=== PATIENT | female | born 1930 | race Hispanic/Latino ===

== ENCOUNTER 2018-04-15 17:59 | Inpatient (IN) | payer MEDICARE ==
[~2018-04-15] VITALS: Ht 157.5 cm; Wt 58.2 kg
[2018-04-15] MEDS ORDERED: DILTIAZEM HCL VIAL 5 ML ONE (18:21)
--- NOTE | 2018-04-15 18:43 | Diagnostic Imaging Report ---
EXAMINATION: CHEST SINGLE (PORTABLE) INDICATION: ^SOB ^[id number] ^1815 ^Y COMPARISON: None FINDINGS: AP view TUBES and LINES: None. LUNGS: Low lung volumes. Diffuse bilateral airspace opacities. PLEURA: No visible pneumothorax. Small bilateral pleural effusions. HEART AND MEDIASTINUM: The cardiomediastinal silhouette is enlarged. BONES AND SOFT TISSUES: No acute osseous lesion. Soft tissues are unremarkable. UPPER ABDOMEN: No free air under the diaphragm. IMPRESSION: Bilateral airspace opacities, representing moderate pulmonary edema. Underlying infiltrate cannot be excluded. Small bilateral pleural effusions. Signed by: Dr. Eric Ortiz MD on 04/15/2018 6:39 PM
[2018-04-15 18:44] LABS: BASOPHILS # (AUTO) 0.1 (0.0-0.1); BASOPHILS % 0.6 % (0.0-1.0); EOSINOPHILS # (AUTO) 0.2 (0.0-0.4); EOSINOPHILS % 2.6 % (0.0-6.0); HEMOGLOBIN 12.5 g/dL (12.0-16.0); LYMPHOCYTES # (AUTO) 3.1 (1.0-3.2); LYMPHOCYTES % 35.3 % (18.0-39.1); MEAN CORPUSCULAR HEMOGLOBIN 29.4 pg (28-32); MEAN CORPUSCULAR HGB CONC 32.9 g/dL (31-35); MEAN CORPUSCULAR VOLUME 89.4 fL (81-99); MONOCYTES # (AUTO) 0.5 (0.2-0.8); MONOCYTES % 5.4 % (4.4-11.3); NEUTROPHILS # (AUTO) 4.9 (2.1-6.9); NEUTROPHILS % 55.8 % (38.7-80.0); PLATELET COUNT 264 x10e3/uL (140-360); RED BLOOD COUNT 4.25 x10e6/uL (3.6-5.1); RED CELL DISTRIBUTION WIDTH 14.9 % (11.7-14.4)
[2018-04-15 18:49] LABS: INR 1.27
[2018-04-15 18:50] LABS: PARTIAL THROMBOPLASTIN TIME 38.8 seconds (23.8-35.5)
[2018-04-15 18:56] LABS: ALANINE AMINOTRANSFERASE 34 IU/L (0-55); ALBUMIN/GLOBULIN RATIO 0.9 (0.8-2.0); ALKALINE PHOSPHATASE 77 IU/L (40-150); ANION GAP 18.2 mmol/L (8-16); BLOOD UREA NITROGEN 22 mg/dL (7-26); BUN/CREATININE RATIO 18 (6-25); CALCIUM 9.9 mg/dL (8.4-10.2); CARBON DIOXIDE 22 mmol/L (22-29); CHLORIDE 100 mmol/L (98-107); CREATINE KINASE 40 IU/L (29-168); CREATININE, SERUM 1.22 mg/dL (0.57-1.11); EST GLOMERULAR FILTRATION RATE 42 ML/MIN (60-); GLUCOSE 147 mg/dL (74-118); POTASSIUM 4.2 mmol/L (3.5-5.1); SODIUM 136 mmol/L (136-145)
[2018-04-15] MEDS ORDERED: DILTIAZEM HCL 5 MG/ML 5 ML VIAL IV ONE (19:15)
[2018-04-15] MEDS ORDERED: FUROSEMIDE INJ 10 MG/ML 4 ML VIAL IV ONE (19:30)
[2018-04-15] MEDS ORDERED: DIGOXIN INJ 0.25 MG/ML 2 ML AMP IV ONE (20:15)
[2018-04-15 21:12] LABS: CLARITY,URINE CLEAR (CLEAR); COLOR,URINE YELLOW (YELLOW); KETONES,URINE TRACE (NEGATIVE); LEUKOCYTE ESTERASE ,URINE NEGATIVE (NEGATIVE); NITRITE,URINE NEGATIVE (NEGATIVE); URINE UROBILINOGEN 0.2 mg/dL (0.2 - 1)
[2018-04-15 21:13] LABS: BILIRUBIN,URINE NEGATIVE (NEGATIVE); PROTEIN,URINE DIPSTICK TRACE (NEGATIVE)
[2018-04-15 21:23] LABS: RBC,URINE 0-5 /HPF (0-5); WBC,URINE (MAN) 0-5 /HPF (0-5)
[2018-04-15 21:24] LABS: AMORPHOUS SEDIMENT,URINE FEW (FEW); BACTERIA,URINE FEW /HPF; EPITHELIAL CELLS,URINE FEW /LPF
[2018-04-15] MEDS ORDERED: AMLODIPINE BESYL5 MG PO (22:13)
[2018-04-15] MEDS ORDERED: RIVASTIGMINE3 MG PO (22:13)
[2018-04-15] MEDS ORDERED: TRESIBA SQ (22:13)
[2018-04-15] MEDS ORDERED: FUROSEMIDE20 MG PO (22:13)
[2018-04-15] MEDS ORDERED: CARVEDILOL12.5 MG PO (22:13)
[2018-04-15] MEDS ORDERED: METFORMIN HCL500 MG PO (22:13)
[2018-04-15] MEDS ORDERED: AMIODARONE HCL200 MG PO (22:13)
[2018-04-15] MEDS ORDERED: METOPROLOL TART50 MG PO (22:13)
[2018-04-15] MEDS ORDERED: IPRATROPIU0.2 MG/1 M INH (22:13)
[2018-04-15] MEDS ORDERED: FERROUS GLUCON324 M1 PO (22:13)
[2018-04-15] MEDS ORDERED: GABAPENTIN100 MG PO (22:13)
[2018-04-15] MEDS ORDERED: AMIODARONE HCL 150MG 100 ML IV SCH (22:15)
[2018-04-15] MEDS ORDERED: AMIODARONE 900MG 500 ML IV SCH (22:15)
[2018-04-15] MEDS ORDERED: AMIODARONE HCL 100 ML IV ONE (22:35)
[2018-04-15] MEDS ORDERED: DEXTROSE 50% SYRINGE 50 ML IV PRN (23:00)
--- OUTSIDE RECORDS SUMMARY | 2018-04-15 23:01 | XMS REPORT ---
Author [facility] Address Unknown Phone Unavailable Care Team Providers Care Wrapping Machine Helper Name Role Phone Parrish MANZO Unavailable Unavailable Payers Payer Name Policy Type Policy Number Effective Date Expiration Date Problems This patient has no known problems. Allergies, Adverse Reactions, Alerts Allergy Name Allergy Type Status Severity Reaction(s) Onset Date Inactive Date Treating Clinician Comments No Known Allergies DA Active U 2018-02-13 00:00:00 Medications This patient has no known medications. Results Test Description Test Time Test Comments Text Results Atomic Results Result Comments CHEST SINGLE (PORTABLE) 2018-04-15 18:38:00 [place] [id number] Patient Name: EMILY SKY MR #: [id number] : 1930 Age/Sex: 88/F Req #: [id number] Adm Physician: Ordered by: PATO MANZO MD Report #: [id number] Location: ER Room/Bed: Procedure: [id number] DX/CHEST SINGLE (PORTABLE) Exam Date: 04/15/18 Exam Time: 1814 REPORT STATUS: Signed EXAMINATION: CHEST SINGLE (PORTABLE) INDICA TION: SOB [id number] Y COMPARISON: None FINDINGS: AP view TUBES and LINES: None. LUNGS: Low lung volumes. Diffuse bilateral airspace opacities. PLEURA: No visible pneumothorax. Small bilateral pleural effusions. HEART AND MEDIASTINUM: The cardiomediastinal silhouette is enlarged. BONES AND SOFT TISSUES: No acute osseous lesion. Soft tissues are unremarkable. UPPER ABDOMEN: No free air under the diaphragm. IMPRESSION: Bilateral airspace opacities, representing moderate pulmonary edema. Underlying infiltrate cannot be excluded. Small bilateral pleural effusions. Signed by: Dr. Eric Cross MD on 04/15/2018 6:39 PM Dictated By: ERIC CROSS MD 38 Transcribed By: CLAUS on 04/15/181838 COPY TO: PATO MANZO MD
[2018-04-15] MEDS ORDERED: IPRATROPIUM BROMIDE 0.02% 2.5 ML NEB INH PRN (23:15)
[2018-04-15 23:58] VITALS: BP 114/90
[2018-04-16] VITALS (55 sets, daily range): BP systolic 100–134; BP diastolic 26–99
[2018-04-16 01:35] LABS: ABG HCO3 26 mmol/L (23-28); ABG PCO2 29 mmHg (41-51); ABG PH 7.42 (7.31-7.41); ABG PO2 113 mmHg (80-105)
[2018-04-16] MEDS ORDERED: OMEPRAZOLE40 MG PO (02:10)
[2018-04-16] MEDS ORDERED: WARFARIN SODIU2.5 MG PO (02:10)
[2018-04-16] MEDS ORDERED: ALOGLIPTIN PO (02:10)
[2018-04-16] MEDS ORDERED: ALENDRONATE SOD70 MG PO (02:16)
[2018-04-16] MEDS ORDERED: AMIODARONE 900MG 500 ML IV SCH (04:15)
[2018-04-16 07:29] LABS: HEMATOCRIT 33.5 % (34.2-44.1); HEMOGLOBIN 10.9 g/dL (12.0-16.0); LYMPHOCYTES # (AUTO) 1.3 (1.0-3.2); LYMPHOCYTES % 13.7 % (18.0-39.1); MEAN CORPUSCULAR HEMOGLOBIN 28.6 pg (28-32); MEAN CORPUSCULAR HGB CONC 32.5 g/dL (31-35); MEAN CORPUSCULAR VOLUME 87.9 fL (81-99); MONOCYTES # (AUTO) 0.1 (0.2-0.8); MONOCYTES % 0.9 % (4.4-11.3); NEUTROPHILS % 84.8 % (38.7-80.0); PLATELET COUNT 220 x10e3/uL (140-360); RED BLOOD COUNT 3.81 x10e6/uL (3.6-5.1); RED CELL DISTRIBUTION WIDTH 14.7 % (11.7-14.4)
[2018-04-16 07:39] LABS: CREATINE KINASE 32 IU/L (29-168)
[2018-04-16 08:04] LABS: ALBUMIN 3.6 g/dL (3.5-5.0); ALBUMIN/GLOBULIN RATIO 0.9 (0.8-2.0); ANION GAP 16.1 mmol/L (8-16); CALCIUM 9.3 mg/dL (8.4-10.2); CREATININE, SERUM 1.3 mg/dL (0.57-1.11); POTASSIUM 4.1 mmol/L (3.5-5.1)
[2018-04-16] MEDS: INSULIN REGULAR, HUMAN 100 UNIT/1 ML 3ML VIAL SQ SCH ×4 (08:31→21:35)
[2018-04-16] MEDS: GABAPENTIN 100 MG CAP PO SCH (08:33)
[2018-04-16] MEDS: FERROUS SULFATE 325 MG TAB PO SCH (08:33)
[2018-04-16] MEDS: AMLODIPINE BESYLATE 5 MG TAB PO SCH (08:33)
[2018-04-16] MEDS ORDERED: RIVASTIGMINE TARTRATE 1.5 MG CAP PO SCH (09:00)
[2018-04-16] MEDS ORDERED: CARVEDILOL 12.5 MG TAB PO SCH (09:00)
[2018-04-16] MEDS: TRESIBA 20 UNIT SC SCH (09:00)
[2018-04-16] MEDS ORDERED: FUROSEMIDE INJ 10 MG/ML 4 ML VIAL IV SCH (09:00)
[2018-04-16] MEDS ORDERED: METOPROLOL TARTRATE 50 MG TAB PO SCH (09:00)
--- NOTE | 2018-04-16 09:25 | Diagnostic Imaging Report ---
PROCEDURE: A single AP view of the chest. COMPARISON: Chest radiograph 04/16/18. INDICATIONS: CHF FINDINGS: Lines/tubes: None. Lungs: Moderate perihilar and interstitial opacities, slightly increased from the prior radiography. No lobar consolidation. Patchy bibasilar opacities, likely atelectasis. Pleura: Small bilateral pleural effusions. No evidence of pneumothorax. Heart and mediastinum: Moderately enlarged cardiomediastinal silhouette. Atherosclerotic aortic calcifications. Bones: No acute bony abnormality. IMPRESSION: Increased moderate perihilar and interstitial opacities, likely interstitial edema. Small bilateral pleural effusions. Dictated by: SANGEETHA CASTILLO M.D. on 04/16/2018 at 9:34 Electronically approved by: SANGEETHA CASTILLO M.D. on 04/16/2018 at 9:34
[2018-04-16] MEDS: RIVASTIGMINE TARTRATE 1.5 MG CAP PO SCH ×2 (10:25→17:38)
--- NOTE | 2018-04-16 13:53 | Consultation ---
DATE OF CONSULTATION: April 16, 2018 CARDIAC CONSULTATION REASON FOR CONSULTATION: Atrial fibrillation, shortness of breath. HISTORY: An 88-year-old lady who is known with chronic atrial fibrillation, hypertension, diabetes mellitus with complication, dementia. Patient came to this institution complaining of shortness of breath, cough, and she was in atrial fibrillation with rapid ventricular response. Patient given Lasix, started on IV amiodarone. Cardiac consultation is obtained. I visited with the patient, who is doing well. Of note, on admission her BNP was only at 412. Her chest x-ray is showing volume overload. Her cardiac enzymes are normal. Patient now is comfortable. Her family at bedside. She is in intensive care unit. Apparently she was sick for a few days prior to presentation. Started with cough and cold-like illness and was progressively worse. Now she looks "better." Patient was at [facility] on February 16, 2018, when she was admitted for similar presentation. Her family giving her medication as scheduled and as needed. She has got good family support. REVIEW OF SYSTEMS: Extensive to all systems. Only positive and negative ones will be mentioned for clarity. GENERAL: Possible fever and chills. HEENT: Congestion. PULMONARY AND CARDIAC: Shortness of breath. No angina. Cough. No syncope or presyncope. GI: Poor appetite. No hematemesis. No melena. HEMATOLOGY: No easy bruising or bleeding. : Increased frequency of urination. MUSCULOSKELETAL: Back pain. PERIPHERAL VASCULAR: Leg swelling. NEUROLOGICAL: Patient is forgetful, but no localized deficits. CURRENT MEDICATIONS OR HOME MEDICATIONS 1. Warfarin 2.5 mg a day. 2. Amlodipine 5 mg a day. 3. Coreg 12.5 mg twice a day. 4. Lasix 20 mg a day. 5. Metformin 500 mg a day. 6. Exelon 3 mg a day. 7. Gabapentin 100 mg a day. 8. Prilosec 20 mg a day. ALLERGIES: NONE. PAST MEDICAL HISTORY 1. Chronic atrial fibrillation. 2. Hypertension. 3. Diabetes mellitus. 4. Peripheral neuropathy. 5. Chronic anemia. 6. Asthma. 7. Dementia. 8. Cholecystectomy. FAMILY HISTORY: Mother at the age of 86. Father at the age of 70, gallbladder issues. Diabetes mellitus is common in the family. PHYSICAL EXAMINATION GENERAL: Elderly lady in no acute distress. VITALS: Height of 5-2. Weight of 135 pounds. Blood pressure 150/80. Heart rate of 80. Respiratory rate of 18. HEENT: Pupils are reactive. NECK: Elevation of jugular venous pulsation. CHEST: Few crackles. HEART: Irregularly irregular rate of atrial fibrillation. S1/S2. ABDOMEN: Soft. EXTREMITIES: No cyanosis, no clubbing, no edema. Decreased peripheral pulses. IMPRESSION 1. Chronic atrial fibrillation. 2. Diabetes mellitus. 3. Hypertension. 4. Debility. 5. Forgetful. 6. Admission was respiratory distress, volume overload. Cardiac-weaver, my recommendation will be as follows. 1. Continuation of anticoagulation. 1. Stopping Coreg and starting the patient on metoprolol 100 mg twice a day for better controlling heart rate. 2. Lasix orally. Her echocardiogram in February 2018 showed severe LVH with normal ejection fraction, left atrial enlargement, mild aortic stenosis. Job#: [id number] EV
[2018-04-16 15:11] LABS: BASOPHILS % 0.1 % (0.0-1.0); HEMATOCRIT 31.6 % (34.2-44.1); HEMOGLOBIN 10.4 g/dL (12.0-16.0); LYMPHOCYTES # (AUTO) 1.3 (1.0-3.2); LYMPHOCYTES % 14.2 % (18.0-39.1); MEAN CORPUSCULAR HEMOGLOBIN 29.1 pg (28-32); MEAN CORPUSCULAR HGB CONC 32.9 g/dL (31-35); MEAN CORPUSCULAR VOLUME 88.5 fL (81-99); MONOCYTES # (AUTO) 0.5 (0.2-0.8); MONOCYTES % 5.3 % (4.4-11.3); NEUTROPHILS # (AUTO) 7.5 (2.1-6.9); NEUTROPHILS % 79.8 % (38.7-80.0); PLATELET COUNT 204 x10e3/uL (140-360); RED BLOOD COUNT 3.57 x10e6/uL (3.6-5.1); RED CELL DISTRIBUTION WIDTH 14.9 % (11.7-14.4)
[2018-04-16 15:35] LABS: CREATINE KINASE MB 0.5 ng/mL (0-5.0)
[2018-04-16] MEDS ORDERED: WARFARIN SOD 2.5 MG TAB PO SCH ×2 (17:00)
[2018-04-16] MEDS: WARFARIN SOD 5 MG TAB PO SCH (17:37)
[2018-04-16] MEDS: METOPROLOL TARTRATE 50 MG TAB PO SCH (17:38)
[2018-04-16] MEDS ORDERED: INSULIN DETEMIR 100 UNIT/ML PEN SQ SCH (21:00)
[2018-04-16] MEDS: PANTOPRAZOLE SOD 40 MG TABEC PO SCH (21:25)
[2018-04-16] MEDS ORDERED: INSULIN DETEMIR 100 UNIT/ML PEN SQ ONE (21:34)
[2018-04-17] VITALS (22 sets, daily range): BP systolic 97–133; BP diastolic 53–100
[2018-04-17 04:53] LABS: BASOPHILS % 0.3 % (0.0-1.0); EOSINOPHILS # (AUTO) 0.1 (0.0-0.4); EOSINOPHILS % 0.6 % (0.0-6.0); HEMATOCRIT 31.9 % (34.2-44.1); HEMOGLOBIN 10.5 g/dL (12.0-16.0); LYMPHOCYTES # (AUTO) 2.9 (1.0-3.2); LYMPHOCYTES % 26.3 % (18.0-39.1); MEAN CORPUSCULAR HEMOGLOBIN 28.8 pg (28-32); MEAN CORPUSCULAR HGB CONC 32.9 g/dL (31-35); MEAN CORPUSCULAR VOLUME 87.6 fL (81-99); MONOCYTES # (AUTO) 0.7 (0.2-0.8); NEUTROPHILS # (AUTO) 7.2 (2.1-6.9); NEUTROPHILS % 66.3 % (38.7-80.0); PLATELET COUNT 223 x10e3/uL (140-360); RED BLOOD COUNT 3.64 x10e6/uL (3.6-5.1); RED CELL DISTRIBUTION WIDTH 14.9 % (11.7-14.4)
[2018-04-17 05:09] LABS: INR 1.67
[2018-04-17 05:18] LABS: ALBUMIN 3.3 g/dL (3.5-5.0); ALBUMIN/GLOBULIN RATIO 0.9 (0.8-2.0); ANION GAP 13.5 mmol/L (8-16); CALCIUM 8.9 mg/dL (8.4-10.2); CREATININE, SERUM 1.54 mg/dL (0.57-1.11); POTASSIUM 3.5 mmol/L (3.5-5.1)
[2018-04-17] MEDS: INSULIN REGULAR, HUMAN 100 UNIT/1 ML 3ML VIAL SQ SCH ×4 (07:30→20:40)
[2018-04-17] MEDS: TRESIBA 20 UNIT SC SCH (09:00)
[2018-04-17] MEDS: FUROSEMIDE 40 MG TAB PO SCH (09:16)
[2018-04-17] MEDS: RIVASTIGMINE TARTRATE 1.5 MG CAP PO SCH ×2 (09:16→17:20)
[2018-04-17] MEDS: GABAPENTIN 100 MG CAP PO SCH (09:16)
[2018-04-17] MEDS: AMLODIPINE BESYLATE 5 MG TAB PO SCH (09:16)
[2018-04-17] MEDS: METOPROLOL TARTRATE 50 MG TAB PO SCH ×2 (09:16→17:20)
[2018-04-17] MEDS: FERROUS SULFATE 325 MG TAB PO SCH (09:16)
[2018-04-17] MEDS: WARFARIN SOD 5 MG TAB PO SCH (17:20)
[2018-04-17] MEDS: PANTOPRAZOLE SOD 40 MG TABEC PO SCH (20:28)
[2018-04-18] VITALS (7 sets, daily range): BP systolic 102–139; BP diastolic 56–79
[2018-04-18 05:58] LABS: BASOPHILS % 0.5 % (0.0-1.0); EOSINOPHILS # (AUTO) 0.4 (0.0-0.4); HEMATOCRIT 34.3 % (34.2-44.1); HEMOGLOBIN 11.3 g/dL (12.0-16.0); LYMPHOCYTES # (AUTO) 3.1 (1.0-3.2); LYMPHOCYTES % 35.8 % (18.0-39.1); MEAN CORPUSCULAR HEMOGLOBIN 29.1 pg (28-32); MEAN CORPUSCULAR HGB CONC 32.9 g/dL (31-35); MEAN CORPUSCULAR VOLUME 88.4 fL (81-99); MONOCYTES # (AUTO) 0.5 (0.2-0.8); MONOCYTES % 5.8 % (4.4-11.3); NEUTROPHILS # (AUTO) 4.6 (2.1-6.9); NEUTROPHILS % 52.7 % (38.7-80.0); PLATELET COUNT 236 x10e3/uL (140-360); RED BLOOD COUNT 3.88 x10e6/uL (3.6-5.1); RED CELL DISTRIBUTION WIDTH 15.2 % (11.7-14.4)
[2018-04-18 06:05] LABS: INR 1.72; PROTHROMBIN TIME 21.5 seconds (11.9-14.5)
[2018-04-18 06:15] LABS: ANION GAP 16.3 mmol/L (8-16); CREATININE, SERUM 1.2 mg/dL (0.57-1.11); POTASSIUM 3.3 mmol/L (3.5-5.1)
--- NOTE | 2018-04-18 06:35 | Diagnostic Imaging Report ---
EXAM: CHEST SINGLE (PORTABLE), AP 1 view INDICATION: CHF COMPARISON: AP view of the chest April 15, 2018 FINDINGS: LINES/TUBES: None LUNGS: Bilateral interstitial and alveolar opacities improved from prior exam. Some areas appear more nodular than others. Perihilar bronchiectasis and bronchial thickening. PLEURA: No effusions or pneumothorax. HEART AND MEDIASTINUM: Stable appearance BONES AND SOFT TISSUES: No acute findings. IMPRESSION: Interval improvement in pulmonary edema. Nodular densities bilaterally are indeterminate and a follow-up x-ray or CT is recommended after acute process has resolved. Signed by: Dr. Maria Alejandra Quintero M.D. on 04/18/2018 6:32 AM
[2018-04-18 06:58] LABS: MAGNESIUM 1.9 MG/DL (1.3-2.1)
[2018-04-18 07:26] LABS: THYROID STIMULATING HORMONE 1.167 uIU/mL (0.350-4.940)
[2018-04-18] MEDS ORDERED: POTASSIUM CHLORIDE 20 MEQ TAB CR PO NR ×2 (07:30→09:45)
[2018-04-18] MEDS: FERROUS SULFATE 325 MG TAB PO SCH (08:45)
[2018-04-18] MEDS: AMLODIPINE BESYLATE 5 MG TAB PO SCH (08:45)
[2018-04-18] MEDS: FUROSEMIDE 40 MG TAB PO SCH (08:45)
[2018-04-18] MEDS: OYST-CAL-D 500MG TABLET PO SCH ×2 (08:45→17:00)
[2018-04-18] MEDS: GABAPENTIN 100 MG CAP PO SCH (08:45)
[2018-04-18] MEDS: RIVASTIGMINE TARTRATE 1.5 MG CAP PO SCH ×2 (08:45→17:00)
[2018-04-18] MEDS: METOPROLOL TARTRATE 50 MG TAB PO SCH ×2 (08:45→17:00)
[2018-04-18] MEDS: INSULIN REGULAR, HUMAN 100 UNIT/1 ML 3ML VIAL SQ SCH ×4 (08:45→21:00)
[2018-04-18] MEDS: TRESIBA 20 UNIT SC SCH (09:00)
[2018-04-18] MEDS: WARFARIN SOD 5 MG TAB PO SCH (17:00)
[2018-04-18] MEDS: PANTOPRAZOLE SOD 40 MG TABEC PO SCH (19:45)
[2018-04-19] VITALS: BP 128/58
[2018-04-19 04:00] VITALS: BP 134/60
[2018-04-19 05:04] LABS: BASOPHILS % 0.4 % (0.0-1.0); EOSINOPHILS # (AUTO) 0.4 (0.0-0.4); EOSINOPHILS % 4.8 % (0.0-6.0); HEMATOCRIT 35.8 % (34.2-44.1); HEMOGLOBIN 11.7 g/dL (12.0-16.0); LYMPHOCYTES # (AUTO) 3.2 (1.0-3.2); LYMPHOCYTES % 35.2 % (18.0-39.1); MEAN CORPUSCULAR HEMOGLOBIN 28.7 pg (28-32); MEAN CORPUSCULAR HGB CONC 32.7 g/dL (31-35); MONOCYTES # (AUTO) 0.7 (0.2-0.8); MONOCYTES % 7.2 % (4.4-11.3); NEUTROPHILS # (AUTO) 4.7 (2.1-6.9); NEUTROPHILS % 52.2 % (38.7-80.0); PLATELET COUNT 248 x10e3/uL (140-360); RED BLOOD COUNT 4.07 x10e6/uL (3.6-5.1); RED CELL DISTRIBUTION WIDTH 14.9 % (11.7-14.4)
[2018-04-19 05:29] LABS: ANION GAP 15.3 mmol/L (8-16); CREATININE, SERUM 1.21 mg/dL (0.57-1.11); MAGNESIUM 1.8 MG/DL (1.3-2.1); POTASSIUM 3.3 mmol/L (3.5-5.1)
--- NOTE | 2018-04-19 07:07 | Diagnostic Imaging Report ---
PROCEDURE: CHEST SINGLE (PORTABLE) COMPARISON: 04/18/2018. INDICATIONS: PULMONARY EDEMA FINDINGS: Mechanical differences in technique, nodular and interstitial opacities bilaterally are not significantly changed. No sizable pleural effusion or pneumothorax. Stable cardiomediastinal contour with atherosclerotic calcification of the thoracic aorta. No acute osseous abnormality. CONCLUSION: Stable pulmonary edema relative to 04/18/2018 mechanical differences in technique. As previously discussed, background nodular opacities should be assessed for stability or resolution with followup chest radiograph or CT after resolution of acute process. Dictated by: Moncho Harman M.D. on 04/19/2018 at 7:16 Electronically approved by: Moncho Harman M.D. on 04/19/2018 at 7:16
[2018-04-19] MEDS: INSULIN REGULAR, HUMAN 100 UNIT/1 ML 3ML VIAL SQ SCH ×2 (08:15→11:30)
[2018-04-19] MEDS ORDERED: METOPROLOL TART50 MG PO (08:26)
[2018-04-19] MEDS ORDERED: COUMADIN5 MG PO (08:26)
[2018-04-19] MEDS ORDERED: Calcium Carbonate PO (08:26)
[2018-04-19] MEDS ORDERED: POTASSIUM CHLO20 ME1 PO (08:26)
[2018-04-19] MEDS ORDERED: FUROSEMIDE40 MG PO (08:26)
[2018-04-19] MEDS ORDERED: POTASSIUM CHLORIDE 20 MEQ TAB CR PO NR ×2 (08:45→12:15)
[2018-04-19 08:57] VITALS: BP 127/68
[2018-04-19] MEDS: TRESIBA 20 UNIT SC SCH (09:00)
[2018-04-19] MEDS: RIVASTIGMINE TARTRATE 1.5 MG CAP PO SCH (09:18)
[2018-04-19] MEDS: FERROUS SULFATE 325 MG TAB PO SCH (09:19)
[2018-04-19] MEDS: METOPROLOL TARTRATE 50 MG TAB PO SCH (09:20)
[2018-04-19] MEDS: GABAPENTIN 100 MG CAP PO SCH (09:21)
[2018-04-19] MEDS: OYST-CAL-D 500MG TABLET PO SCH (09:22)
[2018-04-19] MEDS: FUROSEMIDE 40 MG TAB PO SCH (09:22)
[2018-04-19] MEDS: AMLODIPINE BESYLATE 5 MG TAB PO SCH (09:22)
[2018-04-19 09:36] VITALS: BP 124/68
[2018-04-19 12:30] LABS: INR 2.01; PROTHROMBIN TIME 24.3 seconds (11.9-14.5)
[2018-04-19 12:47] VITALS: BP 149/73
[2018-04-19] MEDS ORDERED: WARFARIN SODIUM2 MG PO (14:12)
--- NOTE | 2018-04-19 20:09 | Discharge Summary ---
ADMISSION DIAGNOSES 1. Chronic atrial fibrillation with rapid ventricular response. 2. Cyjdo-dw-hldapnf systolic congestive heart failure. 3. Hypertension with congestive heart failure and chronic kidney disease, 3. 4. Type 2 diabetes with chronic kidney disease, 3. 5. Chronic obstructive pulmonary disease. 6. Dementia. DISCHARGE DIAGNOSES 1. Chronic atrial fibrillation with rapid ventricular response. 2. Uyuei-kt-jgaaxom systolic congestive heart failure. 3. Hypertension with congestive heart failure and chronic kidney disease, 3. 4. Type 2 diabetes with chronic kidney disease, 3. 5. Chronic obstructive pulmonary disease. 6. Dementia. 7. Hypokalemia. 8. Hypocalcemia. HISTORY: The patient has a history of hypertension, type 2 diabetes, chronic kidney disease, 3, chronic atrial fibrillation, COPD. HOSPITAL COURSE: An 88-year-old female with tachycardia rate controlled after the amiodarone and metoprolol dosing. Chest x-ray showed bilateral airspace opacities representing moderate pulmonary edema. Urine culture was negative. Stool for blood was negative. The patient remained rate controlled on the metoprolol. She will discharge home with increased dose of 40 mg daily Lasix, metoprolol 100 b.i.d., K-Dur 20 daily, Coumadin 4 mg daily and Os-Tylor D b.i.d. She was on amiodarone at home, but per cardiology ____, she will not continue amiodarone any more. She will follow up with Dr. Salinas as discussed and primary care in one to two weeks. The patient and daughter understand discharge instructions and agree to plan. Vital signs stable. The patient afebrile. Dictated by: Jinny Smith NP SEVERINO OSWALD MD Job#: [id number]
== END 2018-04-19 14:31 | disposition home health service (06) | DRG 291 ==
LOC: ER 17:59 → EDBD 17:59 → ERHOLD 22:58 → ICU 23:58 → MED/SURG 04-17 21:02
PROVIDERS: ADMIT Internal Medicine; ATTEND Internal Medicine
DX: I13.0 Hypertensive heart and chronic kidney disease with heart failure and stage 1 through stage 4 chronic kidney disease, or unspecified chronic kidney disease (principal); I50.23 Acute on chronic systolic (congestive) heart failure; I48.2 Chronic atrial fibrillation; Z79.01 Long term (current) use of anticoagulants; N18.3 Chronic kidney disease, stage 3 (moderate); E11.22 Type 2 diabetes mellitus with diabetic chronic kidney disease; Z79.4 Long term (current) use of insulin; E87.6 Hypokalemia; E83.51 Hypocalcemia; F03.90 Unspecified dementia, unspecified severity, without behavioral disturbance, psychotic disturbance, mood disturbance, and anxiety; Z79.899 Other long term (current) drug therapy; J45.909 Unspecified asthma, uncomplicated
CPT/HCPCS: 36415; 36600; 51700; 71045; 80048; 80053; 81001; 82270; 82550; 82553; 82805; 82948; 83735; 83880; 84443; 84484; 85025; 85379; 85610; 85730; 87086; 93005; 93306; 94660; 96372; 99285; J1160; J1940; J7799

== ENCOUNTER 2018-06-01 17:45 | Emergency (ER) | payer MEDICARE, OTHER ==
[~2018-06-01] VITALS: Ht 157.5 cm; Wt 61.2 kg
[~2018-06-01 17:45] MED LIST: ALENDRONATE SOD70 MG PO; ALOGLIPTIN PO; AMIODARONE HCL200 MG PO; AMLODIPINE BESYL5 MG PO; CARVEDILOL12.5 MG PO; COUMADIN5 MG PO; Calcium Carbonate PO; FERROUS GLUCON324 M1 PO; FUROSEMIDE20 MG PO; FUROSEMIDE40 MG PO; GABAPENTIN100 MG PO; IPRATROPIU0.2 MG/1 M INH; METFORMIN HCL500 MG PO; METOPROLOL TART50 MG PO; OMEPRAZOLE40 MG PO; POTASSIUM CHLO20 ME1 PO; RIVASTIGMINE3 MG PO; TRESIBA SQ; WARFARIN SODIU2.5 MG PO; WARFARIN SODIUM2 MG PO
[2018-06-01 18:57] LABS: BASOPHILS % 0.4 % (0.0-1.0); EOSINOPHILS # (AUTO) 0.1 (0.0-0.4); EOSINOPHILS % 1.1 % (0.0-6.0); HEMATOCRIT 38.9 % (34.2-44.1); HEMOGLOBIN 12.5 g/dL (12.0-16.0); LYMPHOCYTES # (AUTO) 1.7 (1.0-3.2); LYMPHOCYTES % 15.8 % (18.0-39.1); MEAN CORPUSCULAR HEMOGLOBIN 29.3 pg (28-32); MEAN CORPUSCULAR HGB CONC 32.1 g/dL (31-35); MEAN CORPUSCULAR VOLUME 91.3 fL (81-99); MONOCYTES # (AUTO) 0.4 (0.2-0.8); MONOCYTES % 3.9 % (4.4-11.3); NEUTROPHILS # (AUTO) 8.4 (2.1-6.9); PLATELET COUNT 354 x10e3/uL (140-360); RED BLOOD COUNT 4.26 x10e6/uL (3.6-5.1); RED CELL DISTRIBUTION WIDTH 16.2 % (11.7-14.4)
[2018-06-01] MEDS ORDERED: LEVALBUTEROL HCL SOLN NEBU 1.25 MG/3 ML NEB INH ONE (19:00)
[2018-06-01] MEDS ORDERED: AMIODARONE HCL 150MG 100 ML IV SCH (19:00)
[2018-06-01] MEDS ORDERED: AMIODARONE HCL 360MG 200 ML IV SCH (19:00)
[2018-06-01] MEDS ORDERED: IPRATROPIUM BROMIDE 0.02% 2.5 ML NEB NEB ONE (19:00)
[2018-06-01 19:09] LABS: INR 2.9; PROTHROMBIN TIME 32.4 seconds (11.9-14.5)
[2018-06-01 19:10] LABS: PARTIAL THROMBOPLASTIN TIME 43.9 seconds (23.8-35.5)
[2018-06-01 19:16] LABS: ALBUMIN 3.7 g/dL (3.5-5.0); ALBUMIN/GLOBULIN RATIO 0.9 (0.8-2.0); ANION GAP 18.1 mmol/L (8-16); CALCIUM 9.6 mg/dL (8.4-10.2); CREATININE, SERUM 1.75 mg/dL (0.57-1.11); POTASSIUM 4.1 mmol/L (3.5-5.1)
[2018-06-01 19:23] LABS: CREATINE KINASE MB 0.8 ng/mL (0-5.0)
[2018-06-01] MEDS ORDERED: AMIODARONE HCL 150MG 100 ML IV ONE (19:30)
[2018-06-01] MEDS ORDERED: AMIODARONE HCL 900 MG in DEXTROSE 5 % 500ML BOTTLE 500 ML IV SCH (19:30)
--- NOTE | 2018-06-01 19:36 | Diagnostic Imaging Report ---
EXAMINATION: CHEST SINGLE (PORTABLE) COMPARISON: Chest x-ray 04/19/2018 INDICATION: Cough, congestion DISCUSSION: Frontal view of the chest obtained at 1907 hours. HEART AND MEDIASTINUM: Stable cardiomegaly and vascular congestion LINES: None. LUNGS: Worsening airspace opacities in the right lower lobe. No new findings in the left lung. Interstitial prominence is stable. PLEURA: No pleural effusion or pneumothorax. BONES AND SOFT TISSUES: No focal osseous lesion. The soft tissues are normal. IMPRESSION: 1. Worsening opacities in the right lower lobe concerning for pneumonia. Aspiration cannot be excluded. 2. Stable cardiomegaly and vascular congestion. No change in interstitial edema. Signed by: Dr. Eloise Mcnally MD on 06/01/2018 7:32 PM
[2018-06-01] MEDS ORDERED: SODIUM CHLORIDE 0.9% 1000ML 1,000 ML IV ONE (19:45)
[2018-06-01] MEDS ORDERED: CEFTRIAXONE SOD 1 GM VIAL IV SCH (19:45)
[2018-06-01] MEDS ORDERED: AZITHROMYCIN 500MG/NS 250 ML 250 ML IV SCH (19:45)
[2018-06-01] MEDS ORDERED: CEFTRIAXONE SOD 1 GM/NS 50 ML 50 ML IV SCH (20:00)
--- NOTE | 2018-06-01 20:16 | NUR ---
ER PHYSICIAN SPEAKING TO [facility] INT MED MD AT THIS TIME, DR. DAIGLE
[2018-06-02] MEDS ORDERED: AMIODARONE HCL 360MG 200 ML IV SCH
== END 2018-06-01 21:51 | disposition other institution (70) ==
LOC: ER 17:45
DX: R06.00 Dyspnea, unspecified (principal); R09.02 Hypoxemia; J15.9 Unspecified bacterial pneumonia; I48.1 Persistent atrial fibrillation
CPT/HCPCS: 36415; 71045; 80053; 82550; 82553; 83605; 83880; 84484; 85025; 85379; 85610; 85730; 87040; 93005; 94640; 99284; J0456; J0696; J7030

== ENCOUNTER 2018-07-04 13:50 | Inpatient (IN) | payer MEDICARE, OTHER ==
[~2018-07-04] VITALS: Ht 157.5 cm; Wt 64.0 kg
[2018-07-04] MEDS ORDERED: ASPIRIN 81 MG CHEW TAB PO ONE (14:00)
[2018-07-04] MEDS ORDERED: SODIUM CHLORIDE 0.9% 1000ML 1,000 ML IV ONE ×3 (14:00→18:00)
[2018-07-04] MEDS ORDERED: SODIUM CHLORIDE 0.9% 1000ML 1,000 ML ONE ×3 (14:09→17:48)
--- NOTE | 2018-07-04 14:15 | NUR ---
PT ON BIPAP BY RT TECH; TOLERATEING WELL; PT ALERT
--- NOTE | 2018-07-04 14:15 | NUR ---
BEDSIDE GLUCOSE 66; DR CHEUNG INFORMED. NO ORDERS RECEIVED.
[2018-07-04 14:24] LABS: BASOPHILS % 0.5 % (0.0-1.0); EOSINOPHILS # (AUTO) 0.1 (0.0-0.4); EOSINOPHILS % 1.3 % (0.0-6.0); HEMATOCRIT 40.6 % (34.2-44.1); HEMOGLOBIN 13.1 g/dL (12.0-16.0); LYMPHOCYTES % 23.3 % (18.0-39.1); MEAN CORPUSCULAR HEMOGLOBIN 28.8 pg (28-32); MEAN CORPUSCULAR HGB CONC 32.3 g/dL (31-35); MEAN CORPUSCULAR VOLUME 89.2 fL (81-99); MONOCYTES # (AUTO) 0.4 (0.2-0.8); MONOCYTES % 4.5 % (4.4-11.3); NEUTROPHILS # (AUTO) 6.1 (2.1-6.9); NEUTROPHILS % 70.1 % (38.7-80.0); PLATELET COUNT 232 x10e3/uL (140-360); RED BLOOD COUNT 4.55 x10e6/uL (3.6-5.1); RED CELL DISTRIBUTION WIDTH 15.9 % (11.7-14.4)
--- NOTE | 2018-07-04 14:30 | Diagnostic Imaging Report ---
Examination: Single AP view of the chest. COMPARISON: June 01, 2018 INDICATION: Tachycardia DISCUSSION: Lines/tubes: None. Lungs: Diffuse interstitial and alveolar opacities. Pleura: No pleural effusion or pneumothorax. Heart and mediastinum: Cardiomegaly. Aortic calcification. Airway calcification. Bones and soft tissues: No acute bony abnormalities. IMPRESSION: 1. Interstitial and alveolar opacities likely related to edema. Correlate for possible pneumonia. Signed by: Dr. Phu Sierra M.D. on 07/04/2018 2:26 PM
[2018-07-04 14:39] LABS: ALANINE AMINOTRANSFERASE 33 IU/L (0-55); ALBUMIN 3.7 g/dL (3.5-5.0); ALBUMIN/GLOBULIN RATIO 0.9 (0.8-2.0); ALKALINE PHOSPHATASE 94 IU/L (40-150); ANION GAP 18.7 mmol/L (8-16); BLOOD UREA NITROGEN 40 mg/dL (7-26); BUN/CREATININE RATIO 26 (6-25); CALCIUM 9.8 mg/dL (8.4-10.2); CARBON DIOXIDE 20 mmol/L (22-29); CHLORIDE 102 mmol/L (98-107); CREATINE KINASE 32 IU/L (29-168); CREATININE, SERUM 1.56 mg/dL (0.57-1.11); EST GLOMERULAR FILTRATION RATE 31 ML/MIN (60-); GLUCOSE 65 mg/dL (74-118); LIPASE 29 U/L (8-78); POTASSIUM 4.7 mmol/L (3.5-5.1); SODIUM 136 mmol/L (136-145)
[2018-07-04] MEDS ORDERED: SUCCINYLCHOLINE CHLORIDE 20 MG/ML 10ML VIAL ONE (15:14)
[2018-07-04] MEDS ORDERED: ETOMIDATE 2 MG/ML 10 ML INJ IV ONE (15:14)
--- NOTE | 2018-07-04 15:15 | NUR ---
Spoke with patient to assess mental status, pt Alert and Oriented to person place and event. Patient currently on Bipap and noted by ER MD to not be improving. Pt asked if she came to a point that she needed to be intubated would she agree to it,pt asked whether it would be now or only if she needed it. I informed her that the ER MD wanted to intubate now because she wasnt improving after being on the BiPap for a while but that ultimately it was her choice she then glanced at family and whispered yes while shaking her head up and down. Per other staff pt agreed on intubation when ER MD initally asked her when her daughter was not in the room, but then daugher stated she did not want her intubated. ER MD spoke with daughter and told her that she felt that it was necessary for her to be intubated due to her not improving and working to breathe. Daughter verbalized understanding and agreed on intubation. Informed her that we will use the translating service so that the ER MD could explain risks and benefits of intubation. Pt and family verbalized understanding.
[2018-07-04] MEDS ORDERED: DIGOXIN INJ 0.25 MG/ML 2 ML AMP ONE (15:17)
[2018-07-04] MEDS ORDERED: DIGOXIN INJ 0.25 MG/ML 2 ML AMP IV ONE (15:30)
--- NOTE | 2018-07-04 15:30 | NUR ---
INTERPRETOR [employer] STRATEGY SPECIALIST [id number] DA SILVA, PT AND PT DAUGHTER. RISKS FOR BOTH INTUBATION AND CENTRAL LINE DISCUSSED. QUESTIONS ANSWERED AND BOTH PT AND DAUGHTER AGREED TO BOTH PROCEDURES VERBALLY.
--- NOTE | 2018-07-04 15:40 | NUR ---
RT X [address] DA SILVA AND RN X 2. RSI STARTED. 7.5 ET TUBE INSERTED VIA GLIDE SCOPE W/O DIFFICULTY WITH POSITIVE COLOR CHANGE ON CO2 DETECTOR. TUBE TAPED AT 23 CM AT THE TEETH AT 1544. PT ON VENT PER MD ORDER. PT SEDATED AND ONGOING DRIPS ORDERED.
--- NOTE | 2018-07-04 15:48 | NUR ---
#16 SALEM SUMP TUBE INSERTED RT NARE W/O DIFFICULTY; YELLOW BILE ASPIRATED. TAPED TO THE NOSE.
--- NOTE | 2018-07-04 16:00 | NUR ---
PT SEDATED ON THE VENT; DAUGHTER RESTING IN THE WAITING ROOM; DISCLOSURE AND CONSENT FOR INSERTION OF CENTRAL LINE OBTAINED. DENIED ANY QUESTIONS.
[2018-07-04] MEDS ORDERED: VANCOMYCIN HCL 1GM/NS 250 ML BAG IV SCH (16:15)
[2018-07-04 16:22] LABS: ABG PH 7.31 (7.31-7.41)
[2018-07-04 16:23] LABS: ABG HCO3 17 mmol/L (23-28); ABG PCO2 34 mmHg (41-51); ABG PO2 56 mmHg (80-105)
[2018-07-04] MEDS ORDERED: FUROSEMIDE INJ 10 MG/ML 4 ML VIAL IV ONE (16:30)
--- NOTE | 2018-07-04 16:30 | NUR ---
DR Socrates MCKEON AND PA HERE TOE EVALUATE PT AND SPEAK WITH THE DAUGHTER. NEW ORDERS WRITTEN.
[2018-07-04] MEDS ORDERED: FUROSEMIDE INJ 10 MG/ML 4 ML VIAL IV SCH (16:45)
--- NOTE | 2018-07-04 16:45 | NUR ---
#16 TEPPERATURE ENABLED TURNER INSERTED UNDER ASEPTIC TECHNIQUE WITH 150 ML OF CLEAR YELLOW URINE OBTAINED. SECURED VIA STAT LOCK ON RT THIGH.
[2018-07-04 16:59] LABS: INR 3.05; PROTHROMBIN TIME 33.7 seconds (11.9-14.5)
[2018-07-04] MEDS ORDERED: METOPROLOL TARTRATE 50 MG TAB PO SCH (17:00)
--- NOTE | 2018-07-04 17:30 | NUR ---
POST INTUBATION, CENTRAL LINE PLACEMENT AND NG TUBE PLACEMENT CHEST XRAY DONE VIA PORTABLE. PT TOLERATED WELL.
[2018-07-04] MEDS ORDERED: NOREPINEPHRINE 8 MG/D5W 250 ML 250 ML ONE (17:43)
[2018-07-04] MEDS: CEFEPIME 1GM/NS 0.9% 50 ML 50 ML IV SCH (17:55)
--- NOTE | 2018-07-04 18:10 | Diagnostic Imaging Report ---
EXAM: XR CHEST 1 VIEW DATE: 07/04/2018 5:38 PM INDICATION: Central line COMPARISON: Same day, no report available FINDINGS: Lines and Tubes: Right IJ catheter tip overlying SVC. NG tube with side holes below GE junction. ET tube is present with tip just above the fred. Heart and Mediastinum: Moderately enlarged. Aortic vascular calcifications. Probable mitral annular calcifications and left atrial enlargement. Lungs and Pleura: Moderate bilateral airspace opacities are present which could represent edema and/or pneumonia. Bones and Soft Tissues: No acute findings. IMPRESSION: 1. Lines/tubes as above. Slight retraction ET tube recommended. 2. Extensive opacities suggest edema and/or pneumonia. Signed by: Dr. Joey Nascimento MD on 07/04/2018 6:06 PM
[2018-07-04] MEDS: VASOPRESSIN 100 UNIT in DEXTROSE 5% 100ML 100 ML IV SCH (18:18)
--- NOTE | 2018-07-04 18:25 | Consultation ---
DATE OF CONSULTATION: July 04, 2018 CARDIOLOGY CONSULTATION REASON FOR CONSULTATION: CHF. CHIEF COMPLAINT: Tachycardia and shortness of breath. HISTORY OF PRESENT ILLNESS: This is an 88-year-old female well known to practice with history of AFib, hypertension, diabetes and dementia. Patient presents to [facility] ER, apparently was noted to be hypoxic with sats of 88% by home health nurse and heart rate of 150s or so, in which the home health person advised that patient be brought to the ER for further evaluation. EMS was called, in which the patient was brought to [facility] ER. Apparently here in the ER patient was tachycardic and hypoxic, was given digoxin, Lasix. However, her sats were apparently low, in which the patient was subsequently intubated. Patient was seen in ER Room 1, intubated, sedated, with heart rates in the 100s to 120. Oxygen saturations in the low 90s. With speaking to daughter at bedside, she reports that patient has been fine for the past several weeks. Today home health came as expected, in which she says home health stated that her O2 sats were low in the 80s, 88, and with a heart rate of 150s; and, therefore, she was brought to the ER for further evaluation. Daughter reports that the patient has been taking her medications as directed, has not complained of any shortness of breath, any chest pains, any palpitations or dizziness prior to ER visit. PAST MEDICAL HISTORY 1. Chronic AFib. 2. Hypertension. 3. Diabetes. 4. Peripheral neuropathy. 5. Hyperlipidemia. 6. Asthma. 7. Dementia. 8. Debility. PAST SURGICAL HISTORY: Cholecystectomy. FAMILY HISTORY: Mother apparently at the age of 86 with a history of hypertension. Father at the age of 70 apparently with gallbladder issues. SOCIAL HISTORY: She is a . No alcohol, no tobacco use. She does live with her daughter. HOME MEDICATIONS 1. Warfarin 4 mg five days a week and 2 mg on Monday and Monday. 2. Norvasc 5 mg once a day. 3. Lasix 40 mg once a day. 4. Metformin 500 mg twice a day. 5. Ferrous gluconate 325 mg once a day. 6. Gabapentin 100 mg once a day. 7. Rivastigmine 4.5 mg twice a day. 8. Omeprazole 20 mg once a day. 9. Metoprolol 100 mg b.i.d. 10. Ranitidine 5 mg daily. ALLERGIES: NO KNOWN ALLERGIES. REVIEW OF SYSTEMS: Unable to obtain since the patient is intubated and sedated. PHYSICAL EXAMINATION CURRENT VITAL SIGNS: Pulse 120, respiratory rate 16, blood pressure 116/88, pulse ox 100% on 100% FIO2 on ventilator. GENERAL: She is intubated, sedated. SKIN-MASON: No rashes or bruises noted. HEENT: Normocephalic. Pupils equal and reactive. Oral mucosa pink. Positive JVD. No thyromegaly. No carotid bruits noted. HEART: Irregular rate and rhythm. Tachycardic. Slight systolic murmur noted. LUNGS: Bilateral breath sounds with crackles. ABDOMEN: Soft, nontender. Some abdominal distention noted. No organomegaly noted. MUSCULOSKELETAL: Limited range of motion. Patient is intubated and sedated. VASCULAR: +2 bilateral radial pulses, +1 DP/PT bilateral pulses, +1 to 2 edema on lower extremities. NEUROLOGIC: Unable to assess. The patient is sedated and intubated. LABS: White count 8, hemoglobin 13, hematocrit of 40, platelets of 232. Sodium 130, potassium 4.7, bicarb 20, BUN 40, creatinine 1.5. Troponin less than 0.001. BNP 1075. X-RAY: Showing interstitial edema. ASSESSMENT 1. Acute systolic heart failure. 2. Atrial fibrillation with rapid ventricular response. 3. Respiratory failure. 4. Dementia. 5. Debility. 6. Hypertension. 7. Diabetes. PLAN-MASON 1. Patient presents in respiratory failure, noted to be in AFib/RVR. There was an echo done already, in which prelim reports EF in the 30s percent. However, cardiology attending will read for final interpretation. Patient already has been intubated and is sedated. Will continue the patient's beta taina for rhythm control. Also will give patient Lasix 40 mg q.8. 2. Labs will be ordered for tomorrow morning. 3. I had a long discussion with the patient's daughter. 4. Will continue to monitor patient and adjust cardiac therapy as clinical course dictates. Thank you very much for this consult. Dictated by: Moncho Mays NP Job#: [id number] EV
--- NOTE | 2018-07-04 18:30 | NUR ---
REPORT CALLED TO CHRIS JO IN ICU VIA SBARR FORMAT.
--- NOTE | 2018-07-04 18:31 | NUR ---
REPORT ON POST TUBE PLACEMENT XRAY BACK. ORDER FROM DR. DA SILVA TO MOVE THE TUBE FROM 23 CM AT THE TEETH TO 22 CM AT THE TEETH. 184 RT HERE AND ADJUSTS THE TUBE. WILL GET THE POST XRAY IN ICU.
[2018-07-04 19:00] VITALS: BP_SYST 100; BP_SYST 91; BP_DIAS 42; BP_DIAS 48
--- NOTE | 2018-07-04 19:00 | NUR ---
TO ICU VIA STRETCHER WITH RN, MARI AND RT. PT ON VENT AND MONITOR. CENTRAL LINE AND PERIPHERAL IV SITES WNL. BP IMPROVING AND PT NICELY SEDATED. TO ICU 195 W/O INIDENT.
[2018-07-04] MEDS: FENTANYL CITRATE INJ 2,000 MCG in SODIUM CHLORIDE 0.9% 250ML 210 ML IV PRN (19:22)
[2018-07-04 19:23] LABS: BACTERIA,URINE FEW /HPF; BILIRUBIN,URINE NEGATIVE (NEGATIVE); CLARITY,URINE HAZY (CLEAR); COLOR,URINE YELLOW (YELLOW); EPITHELIAL CELLS,URINE FEW /LPF; KETONES,URINE NEGATIVE (NEGATIVE); LEUKOCYTE ESTERASE ,URINE NEGATIVE (NEGATIVE); NITRITE,URINE NEGATIVE (NEGATIVE); PROTEIN,URINE DIPSTICK NEGATIVE (NEGATIVE); URINE UROBILINOGEN 0.2 mg/dL (0.2 - 1); WBC,URINE (MAN) 0-5 /HPF (0-5)
[2018-07-04 19:24] LABS: MUCUS,URINE FEW (RARE)
[2018-07-04] MEDS: MIDAZOLAM HCL 25 MG in SODIUM CHLORIDE 0.9% 50ML 45 ML IV PRN ×2 (19:29→20:40)
[2018-07-04] MEDS ORDERED: ACETAMINOPHEN 1000 MG/100 ML IV PRN (19:30)
[2018-07-04] MEDS ORDERED: ONDANSETRON HCL INJ 2MG/ML 2ML 2 MG/ML VIAL IV PRN (19:30)
[2018-07-04 20:00] VITALS: BP 87/73
[2018-07-04] MEDS: FAMOTIDINE 20 MG/2 ML VIAL IV SCH (20:38)
[2018-07-04] MEDS: VANCOMYCIN 1GM/NS 250 ML 250 ML IV SCH (20:38)
[2018-07-04] MEDS ORDERED: SODIUM CHLORIDE 0.9% 250ML 250 ML ONE (20:39)
[2018-07-04 21:00] VITALS: BP 102/67
[2018-07-04] MEDS: INSULIN REGULAR, HUMAN 100 UNIT/1 ML 3ML VIAL SQ SCH (21:00)
--- NOTE | 2018-07-04 21:00 | History and Physical ---
PRIMARY CARE PROVIDER: Dr. Josesito Sotelo CHIEF COMPLAINT: Acute hypoxic respiratory failure. HISTORY OF PRESENT ILLNESS: Ms. Jay Olmedo is an 88-year-old lady who lives at home with home health care, has a history of dementia. She presents with acute respiratory distress and hypoxia with O2 sats in the 80s, failed BiPAP and was intubated in the ER. Chest x-ray shows acute pulmonary edema versus pneumonia. REVIEW OF SYSTEMS: Unable to obtain due to intubation. PAST MEDICAL HISTORY: Significant for hypertension, type 2 diabetes, chronic atrial fibrillation, dementia, possibly CKD and CHF, but unable to obtain past medical history as patient is intubated and no previous records available. She does have a history of cholecystectomy. Some of that history obtained from her fish filleter. FAMILY HISTORY: Significant for hypertension and diabetes. SOCIAL HISTORY: The patient is , lives at home. Has dementia, gets home health care. She does not smoke, drink, or use illegal drugs, and requires a lot of assistance and supervision. PHYSICAL EXAMINATION: PSYCHIATRIC: Unable to evaluate. HEENT: Her head is atraumatic. Her eyes are anicteric with clear conjunctivae. Ears and nares are without erythema or discharge. She is orally intubated. Has an NG tube in place. NECK: Supple with no mass or thyromegaly. LYMPHATIC SYSTEM: She has no palpable cervical, axillary, or inguinal adenopathy. CARDIOVASCULAR SYSTEM: Her heart has an irregularly irregular rhythm with heart rate around 100. Chronic AFib on the monitor. VITAL SIGNS: Her blood pressure initially 116/88, dropped to 91/42. The patient was started on vasopressin, currently 99/72. Pulse rate 97 and irregular. Pulse ox initially 85%, now 100% on the ventilator. Temperature 97.4. RESPIRATORY: Her lungs revealed decreased breath sounds and some crackles. She is being ventilated. Has symmetric expansion. GASTROINTESTINAL: Her abdomen is soft with normal bowel sounds. CUTANEOUS: Her skin is warm and dry to touch. MUSCULOSKELETAL: She has normal inspection of her joints without erythema or swelling. EXTREMITIES: She has no cyanosis, clubbing, or edema. NEUROLOGIC: She is sedated, but when held, she moves all extremities. DIAGNOSTIC STUDIES: Chest x-ray shows diffuse bilateral opacity consistent with pulmonary edema versus pneumonia. BNP is 1075.7. Troponin less than 0.001. Her chemistry shows normal electrolytes, CO2 20, creatinine 1.56, BUN 40 for a GFR of 31. Calcium is 9.8. Glucose is 95. Lipase is 29. Transaminases, bilirubin, and alk phos are normal. CBC shows a white count of 8.7 with a normal differential, hemoglobin 13.1, hematocrit 40.6, and platelet count 232,000. Her pro time is 33.7 with an INR of 3.05. IMPRESSION AND PLAN: 1. Acute hypoxic respiratory failure. The patient has been intubated, on the ventilator, admitted to intensive care unit. Will consult pulmonary to manage ventilator. 2. Cardiogenic shock. The patient is on intravenous vasopressin at a low dose. Will try to wean as best as possible. 3. Acute systolic congestive heart failure. The patient is receiving intravenous Lasix q.8h. Echocardiogram was pending to assess left ventricular function. 4. Possible pneumonia or pneumonia. The patient is started on intravenous vancomycin and cefepime to cover the pneumonia. 5. Chronic atrial fibrillation. The patient is rate controlled at the moment on digoxin and metoprolol. She has a therapeutic INR, so will not give any anticoagulation until after extubation, and her fish filleter has been consulted to follow her. 6. Type 2 diabetes. Will use sliding scale insulin for now. 7. Acute kidney injury versus chronic kidney disease 3. Will monitor renal function while diuresing. 8. For prophylaxis, the patient has sequential compression devices applied and will be on intravenous Pepcid. Job#: [id number]
--- NOTE | 2018-07-04 21:30 | Diagnostic Imaging Report ---
CHEST SINGLE (PORTABLE), 07/04/2018 7:11 PM Technique: CHEST SINGLE (PORTABLE) Comparison: 07/04/2018 Clinical history: Check ET tube placement Findings: See Impression Impression: Rotated portable radiograph 1. Lines/Tubes: ET tube about 2.2 cm above the fred. Stable right IJ central venous catheter over the SVC and subdiaphragmatic NG tube. 2. Stable enlarged cardiomediastinal silhouette. Aortic calcifications. 3. Increased diffuse pulmonary opacities which may reflect edema and/or pneumonia with layering pleural fluid. Signed by: Dr Sarah Aguilera MD on 07/04/2018 9:27 PM
[2018-07-04 22:00] VITALS: BP 105/75
--- NOTE | 2018-07-04 22:04 | NUR ---
MD Urbina answered phone, notified of pt's condition, admission diagnosis, and Hx. MD Urbina states that no new orders are needed, and that he will see pt in AM.
[2018-07-04 23:00] VITALS: BP 94/71
[2018-07-04] MEDS: FUROSEMIDE INJ 10 MG/ML 4 ML VIAL IV SCH (23:26)
[2018-07-04] MEDS: DEXTROSE 50% SYRINGE 50 ML IV PRN (23:40)
[2018-07-05] VITALS (64 sets, daily range): BP systolic 82–119; BP diastolic 48–97
[2018-07-05 04:18] LABS: BASOPHILS % 0.5 % (0.0-1.0); EOSINOPHILS # (AUTO) 0.1 (0.0-0.4); EOSINOPHILS % 1.5 % (0.0-6.0); HEMATOCRIT 30.8 % (34.2-44.1); HEMOGLOBIN 10.1 g/dL (12.0-16.0); LYMPHOCYTES # (AUTO) 1.5 (1.0-3.2); LYMPHOCYTES % 24.5 % (18.0-39.1); MEAN CORPUSCULAR HEMOGLOBIN 28.9 pg (28-32); MEAN CORPUSCULAR HGB CONC 32.8 g/dL (31-35); MEAN CORPUSCULAR VOLUME 88.3 fL (81-99); MONOCYTES # (AUTO) 0.3 (0.2-0.8); MONOCYTES % 4.4 % (4.4-11.3); NEUTROPHILS # (AUTO) 4.2 (2.1-6.9); NEUTROPHILS % 68.8 % (38.7-80.0); PLATELET COUNT 154 x10e3/uL (140-360); RED BLOOD COUNT 3.49 x10e6/uL (3.6-5.1); RED CELL DISTRIBUTION WIDTH 15.8 % (11.7-14.4)
[2018-07-05 04:40] LABS: ALBUMIN 2.7 g/dL (3.5-5.0); ANION GAP 13.3 mmol/L (8-16); CREATININE, SERUM 1.23 mg/dL (0.57-1.11)
[2018-07-05 04:53] LABS: CREATINE KINASE 24 IU/L (29-168)
[2018-07-05 05:00] LABS: THYROID STIMULATING HORMONE 1.411 uIU/mL (0.350-4.940)
[2018-07-05 05:11] LABS: CALCIUM 7.8 mg/dL (8.4-10.2); POTASSIUM 3.3 mmol/L (3.5-5.1)
[2018-07-05] MEDS: DEXTROSE 50% SYRINGE 50 ML IV PRN (05:16)
[2018-07-05] MEDS ORDERED: MAGNESIUM SULFATE 2GM/50ML 50 ML IV ONE (06:00)
[2018-07-05] MEDS ORDERED: POTASSIUM CHLORIDE 20MEQ/100ML 100 ML IV ONE (06:00)
--- NOTE | 2018-07-05 06:00 | NUR ---
Called MD Rama Urbina to report AM labs and to inquire about CT chest and weaning. Orders rec'd. states that CT and Versed are to be held until he sees pt, states that pt can receive prn D50 if blood sugar is low.
--- NOTE | 2018-07-05 06:40 | Diagnostic Imaging Report ---
CHEST SINGLE (PORTABLE), 07/05/2018 5:00 AM Technique: CHEST SINGLE (PORTABLE) Comparison: Previous day Clinical history: Intubated Findings: See Impression Impression: Rotated portable radiograph 1. Lines/Tubes: ET tube over the mid trachea. Stable right IJ central venous catheter over the SVC and subdiaphragmatic NG tube. 2. Stable enlarged cardiomediastinal silhouette. Aortic calcifications. 3. Persistent diffuse pulmonary opacities which may reflect edema and/or pneumonia with layering pleural fluid. Signed by: Dr Sarah Aguilera MD on 07/05/2018 6:36 AM
[2018-07-05] MEDS: INSULIN REGULAR, HUMAN 100 UNIT/1 ML 3ML VIAL SQ SCH ×4 (07:30→23:52)
[2018-07-05] MEDS: FUROSEMIDE INJ 10 MG/ML 4 ML VIAL IV SCH (07:34)
[2018-07-05] MEDS: FAMOTIDINE 20 MG/2 ML VIAL IV SCH ×2 (08:34→22:00)
[2018-07-05] MEDS: DIGOXIN 0.125 MG TAB PO SCH (08:35)
[2018-07-05] MEDS: LEVOFLOXACIN 250MG/D5W 50ML 50 ML IV SCH (08:36)
[2018-07-05 08:49] LABS: ABG HCO3 19 mmol/L (23-28); ABG PCO2 28 mmHg (41-51); ABG PH 7.44 (7.31-7.41); ABG PO2 85 mmHg (80-105)
[2018-07-05] MEDS: METOPROLOL TARTRATE 50 MG TAB PO SCH ×3 (08:51→16:40)
--- NOTE | 2018-07-05 09:54 | Consultation ---
DATE OF CONSULTATION: July 05, 2018 PULMONARYCRITICAL CARE CONSULTATION CHIEF COMPLAINT: Respiratory failure. HISTORY OF PRESENT ILLNESS: The patient' is an 88-year-old woman with a history of hypertension, atrial fibrillation and dementia. She has problems with recurrent respiratory failure and pulmonary edema, and has required hospitalization in [place], as well as in [place]. The patient came from the nursing facility with tachycardia and low oxygen saturations. She had an elevated BNP. She did not have fevers. She had minimal cough. She did have some increased confusion from her baseline dementia. The patient was intubated in the emergency department and received IV Lasix overnight, as well as antibiotics. She remains on 70% oxygen. PAST SURGICAL HISTORY: Cholecystectomy. PAST MEDICAL HISTORY 1. Chronic atrial fibrillation. 2. Hypertension. 3. Dementia. 4. Peripheral neuropathy. 5. Diabetes. SOCIAL HISTORY: The patient has 12 children, but only 1 lives in [place]. Apparently, 4 live in [place] and 3 live in [place]. [place] She does have some dementia at baseline. She also had DNR paperwork in [place], but the daughter does not have acces to it. She is not a smoker. She is not a drinker. FAMILY HISTORY: The patient has history of hypertension and gallbladder problems. ALLERGIES: THE PATIENT HAS NO KNOWN DRUG ALLERGIES. REVIEW OF SYSTEMS: NO reported fevers prior to coming to the emergency department. No report a headache. Increased confusion. No chest pain. Some dyspnea. Some cough. No abdominal pain. There is no nausea or vomiting. She has no leg edema or calf tenderness. PHYSICAL EXAMINATION VITAL: The patient's blood pressure is 97/53 and the saturation is 80%. Temperature is 99.9 and the pulse is 94. She is on assist control mode of ventilation at a rate of 16 with a PEEP of 7 and an FIO2 of 70%. HEENT: Shows no facial swelling or erythema. The nasal mucosa is normal. The oropharynx is normal. LYMPHATIC: Shows no submandibular, cervical or supraclavicular adenopathy. CARDIAC: Reveals a regular rate and rhythm with a normal S1 and S2. There are no murmurs or rubs. LUNGS: Auscultation of the lungs reveals crackles in both lung loyola. ABDOMEN: Soft and nontender. There is no rebound or guarding. EXTREMITIES: Shows 1+ leg edema. RADIOGRAPHIC DATA: Shows bilateral pulmonary infiltrates suggestive of pulmonary edema. LABORATORY DATA: White blood cell count is 6.2 and the hemoglobin is 10. Platelet count is 154,000. The BUN to creatinine ratio is 34 to 1.23. Potassium is 3.3. Blood gas is 7.31, 34, 56, and 17. IMPRESSION 1. Tdtqn-wa-nleqprv respiratory failure. 2. Oerws-sp-jukutql systolic congestive heart failure. 3. Aspiration pneumonia with severe sepsis. 4. Atrial fibrillation. 5. Coagulopathy secondary to medications. 6. 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 7. Metabolic encephalopathy. PLAN 1. Daughter is contacting her siblings to discuss DNR status. 2. Continue IV Lasix. 3. Control ventricular rate. 4. Consider chemical or electrical cardioversion back to normal sinus rhythm. 5. Would continue current antibiotics. 6. Will monitor the BUN and creatinine and blood counts. 7. Wean ventilator as tolerated. 8. Enteral feedings. Overall prognosis is poor. Case discussed with the nurse, respiratory and daughter. Job#: [id number] RADHA
--- NOTE | 2018-07-05 12:15 | NUR ---
started tube feed per dietary recommendations
--- NOTE | 2018-07-05 14:20 | NUR ---
patient attempted to get out of bed while on vent. restarted fentanyl at 25 mcg/hr
--- NOTE | 2018-07-05 15:00 | NUR ---
Nutrition Intervention Note RD Recommendation(s) for Physician: -Rec continuous TF with Vital AF 1.2 @ 45mL/hr, providing 1296kcal, 81g protein, and 876mL H2O. -Rec minimal of 30mL q 4hr free water flushes; additional water per MD discretion -Monitor daily labs, GI tolerance and weights Plan of Care: RD following, monitoring for tolerance and adequacy, TF rec Nutrition reason for involvement: RN consult intubated RD Assessment 07/05- Chart reviewed. 88yo F, who is admitted for SOB and tachycardia. Pt is currently intubated, sedated, and on vent. Pressor was off this AM. Visited pt in the room. Daughter presented on bedside to provide hx. Per daughter, pt has been eating/ drinking well FICTION AND NONFICTION AUTHOR. Daughter noticed some fluids gain in pt. Reported UBW ~132lbs. Communicated TF rec to SANDRO Rivas. Will continue to monitor and follow. Principal Problems/Diagnoses: 1. Bxsco-ct-hsvxgmk respiratory failure. 2. Fmuxe-ce-cpceyhy systolic congestive heart failure. 3. Aspiration pneumonia with severe sepsis. 4. Atrial fibrillation. 5. Coagulopathy secondary to medications. 6. 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 7. Metabolic encephalopathy. PMH: hypertension, atrial fibrillation, diabetes, peripheral neuropathy, dementia GI: abd soft, round, flatus present Skin: no wound pressure noted Labs: (07/05) K 3.3 L, BUN 34 H, Creatinine 1.23 H, Ca 7.8 L Meds: pepcid, dextrose, IV abx, fetanyl Ht: 62in Wt: 148lb BMI: 27.1kg/m2 IBW: 110lb Malnutrition Evaluation (07/05/18) The patient does not meet criteria for a specified degree of malnutrition at this time. Will re-evaluate at follow-up as appropriate. Nutrition Prescription (Diet Order): Glucerna 1.5 @30mL/hr Estimated Nutritional Needs: Calories: 1200 1500kcal (20-25kcal/kg/d) Weight used: usual BW Protein: 78 120 g (1.3-2g/kg/d) Weight used: usual BW Diet Adequacy: Not meeting calorie needs, Not meeting protein needs Diet Education Needs Assessment: Diet education not indicated; patient on regular diet. Nutrition Care Level: mod (new TF) Nutrition Diagnosis: Inadequate oral intake related to current medical status (intubated and on vent) as evidenced by pt requiring EN as main source of nutrition. Goal: Patient will meet 75-100% of estimated needs by follow up Progress: N/A Interventions: Composition, Rate, Route, IVF, Prescription medications Monitoring/Evaluation: Total energy intake, Total protein intake, Formula/Solution, IVF, Prescription medication, Weight change Signed: Nola Cortez MS, RD, LD
--- NOTE | 2018-07-05 15:55 | NUR ---
tube feed formula changed to Glucerna 1.[address] Diana to
--- NOTE | 2018-07-05 15:56 | NUR ---
CASE MANAGEMENT INITIAL ASSESSMENT Support Manager to bedside to discuss plan of care with patient/family. CM/SW role and care transitions discussed. Anticipated discharge plan discussed along with duration of care. CM/SW discussed patients right to make decisions in care. CM/SW work hours given. Patient lives: [facility] Admit/Transfer: ER Hospital/ER visits since last admit:NONE POA/Emergency contact: EMILY PACHE[facility] DTR [phone] Current/Previous Home Health: YES BUT DOESN'T KNOW THE NAME PCP/Follow-up Care: DR ROJO Current/Previous DME: [facility] [employer] [facility] [employer] Medications (referring to index hospitalization or the first time you were in the hospital) a. Were changes made in your medications when you were in the hospital on [date of index hospitalization]? Yes No Not sure Explain: Note: If no or not sure, please skip to question d b. Did you understand the changes? Yes No Explain: c. Were you able to obtain your new medications right away? Yes No n/a SNF only Explain: d. Were you able to take your medications like the doctor wanted you to? Yes No Explain: e. Did the hospital give you an accurate, easy to understand list of medications when you left? Yes No n/a SNF only Explain: Scale of 1-10 how comfortable does patient feel with disease management in outpatient settin Other Services: NONE Employment Status: RETIRED Areas of Concerns: GETTING PT OFF VENTILATOR Referral Needs: POSSIBLE SNF Education Needs: TO BE DETERMINED IMM/NAGEL given and signed (if applicable): IMM ON ADMIT Goal for discharge:TO RETURN HOME WITH [facility] EM[facility] CM/SW left business card at the bedside with contact information. Name and number was also written on the patients whiteboard. Patient verbalized understanding of discussion. CM will follow-up with ongoing discharge and transition of care needs.
[2018-07-05] MEDS: CEFEPIME 1GM/NS 0.9% 50 ML 50 ML IV SCH (16:04)
[2018-07-05] MEDS: VASOPRESSIN 100 UNIT in DEXTROSE 5% 100ML 100 ML IV SCH (16:30)
[2018-07-05] MEDS: VANCOMYCIN 1GM/NS 250 ML 250 ML IV SCH (16:52)
[2018-07-05] MEDS ORDERED: WARFARIN SOD 3 MG TAB PO SCH ×2 (17:00)
[2018-07-05] MEDS ORDERED: WARFARIN SOD 5 MG TAB PO SCH ×2 (17:00)
[2018-07-05] MEDS ORDERED: WARFARIN SOD 2 MG TAB PO SCH (17:00)
--- NOTE | 2018-07-05 17:00 | NUR ---
URINE SAMPLE SENT TO LAB FOR ORDERED LEGIONELLA
[2018-07-05] MEDS: FENTANYL CITRATE INJ 2,000 MCG in SODIUM CHLORIDE 0.9% 250ML 210 ML IV PRN (22:24)
[2018-07-06] VITALS (31 sets, daily range): BP systolic 84–127; BP diastolic 47–82
[2018-07-06] MEDS: FENTANYL CITRATE INJ 2,000 MCG in SODIUM CHLORIDE 0.9% 250ML 210 ML IV PRN (03:35)
[2018-07-06 05:08] LABS: BASOPHILS % 0.4 % (0.0-1.0); EOSINOPHILS # (AUTO) 0.1 (0.0-0.4); EOSINOPHILS % 1.8 % (0.0-6.0); HEMATOCRIT 30.4 % (34.2-44.1); HEMOGLOBIN 10.2 g/dL (12.0-16.0); LYMPHOCYTES # (AUTO) 1.1 (1.0-3.2); LYMPHOCYTES % 14.9 % (18.0-39.1); MEAN CORPUSCULAR HEMOGLOBIN 28.8 pg (28-32); MEAN CORPUSCULAR HGB CONC 33.6 g/dL (31-35); MEAN CORPUSCULAR VOLUME 85.9 fL (81-99); MONOCYTES # (AUTO) 0.4 (0.2-0.8); MONOCYTES % 5.3 % (4.4-11.3); NEUTROPHILS # (AUTO) 5.5 (2.1-6.9); NEUTROPHILS % 77.2 % (38.7-80.0); PLATELET COUNT 167 x10e3/uL (140-360); RED BLOOD COUNT 3.54 x10e6/uL (3.6-5.1); RED CELL DISTRIBUTION WIDTH 15.9 % (11.7-14.4)
[2018-07-06 05:18] LABS: INR 3.27; PROTHROMBIN TIME 35.6 seconds (11.9-14.5)
[2018-07-06 05:27] LABS: ALBUMIN 2.6 g/dL (3.5-5.0); ALBUMIN/GLOBULIN RATIO 0.9 (0.8-2.0); ANION GAP 12.5 mmol/L (8-16); CREATININE, SERUM 1.34 mg/dL (0.57-1.11); POTASSIUM 3.5 mmol/L (3.5-5.1)
[2018-07-06] MEDS: INSULIN REGULAR, HUMAN 100 UNIT/1 ML 3ML VIAL SQ SCH ×3 (06:39→17:34)
--- NOTE | 2018-07-06 06:56 | Diagnostic Imaging Report ---
CHEST SINGLE (PORTABLE), 07/06/2018 6:30 AM Technique: CHEST SINGLE (PORTABLE) Comparison: Previous day Clinical history: Congestive heart failure Findings: See Impression Impression: 1. Lines/Tubes: Stable ET tube, subdiaphragmatic NG tube, right IJ central venous catheter 2. Stable enlarged cardiac silhouette. Aortic calcification. 3. Diffuse opacities, favor a component of edema with bibasilar atelectasis and layering effusions. Signed by: Dr Sarah Aguilera MD on 07/06/2018 6:53 AM
--- NOTE | 2018-07-06 07:58 | NUR ---
Lowered Fio2 from 60% to 50% Moved et-tube from right to left Cuff pressure is at 21 Oral care was performed
[2018-07-06] MEDS: FAMOTIDINE 20 MG/2 ML VIAL IV SCH ×3 (08:00→22:05)
[2018-07-06] MEDS: LEVOFLOXACIN 250MG/D5W 50ML 50 ML IV SCH (08:32)
[2018-07-06] MEDS: DIGOXIN 0.125 MG TAB PO SCH (08:33)
[2018-07-06] MEDS: METOPROLOL TARTRATE 50 MG TAB PO SCH ×3 (08:33→22:05)
--- NOTE | 2018-07-06 09:28 | Progress Note ---
DATE: July 06, 2018 PULMONARY CRITICAL CARE PROGRESS NOTE Patient was diuresed last night. Her FIO2 has been decreased to 55%. She remains on low-dose of fentanyl for sedation. She also has some atrial fibrillation at a rate of 100-125 and is receiving digoxin for this. OBJECTIVE VITALS: Blood pressure is 127/85 and the pulse is 112. Temperature was 101.4 last night, but is now 100.1. HEENT: Shows no facial swelling or erythema. There is an oroendotracheal tube. The patient has a nasogastric tube. She has a right IJ line in good position. The site looks clean. CARDIAC: Reveals an irregularly irregular rhythm with a normal S1 and S2. There are no murmurs or rubs. LUNGS: Auscultation of the lungs reveals rhonchus breath sounds bilaterally. There is no wheezing. ABDOMEN: Soft and nontender. There is no rebound or guarding. EXTREMITIES: Shows no leg edema or calf tenderness. There is no cyanosis or clubbing. SKIN: Shows no rashes. NEUROLOGICAL: Shows the patient to be sedated. RADIOGRAPHIC DATA: Chest x-ray shows mildly enlarged cardiac silhouette. There are still bilateral infiltrates present. LABORATORY DATA: The white blood count is 7.1 with a hemoglobin of 10.2 and a platelet count of 167,000. The BUN to creatinine ratio is 25 to 1.34. The BNP is 784 and the other electrolytes are within normal limits. The PT is 35.6 and the INR is 3.27. Urinalysis negative. MICROBIOLOGICAL DATA: Urine culture is negative so far. Blood cultures are negative. Influenza is negative. IMPRESSION 1. Ftwhi-ml-qlxjgty respiratory failure. 2. Aspiration pneumonia with severe sepsis, present on admission. 3. Chronic atrial fibrillation with elevated ventricular rate. 4. Coagulopathy secondary to medications. 5. Uxmkx-zq-oxhbqll systolic heart failure. 6. Metabolic encephalopathy. PLAN 1. I discussed the case with the oldest daughter who came from [place] yesterday. 2. I also discussed the case with the nursing staff and with Dr. Salinas, as well as respiratory. 3. Continue to wean oxygen and repeat ABG. 4. Monitor BUN and creatinine. 5. Continue enteral feedings. 6. I will prepare letters to the [employer] [facility] so that the patient's remaining 3 children living in [place] can come to visit her when she is critically ill. Greater than 35 minutes in direct critical care time. Job#: [id number] RI
[2018-07-06 09:44] LABS: ABG HCO3 22 mmol/L (23-28); ABG PCO2 29 mmHg (41-51); ABG PH 7.48 (7.31-7.41); ABG PO2 76 mmHg (80-105)
[2018-07-06] MEDS: ACETAMINOPHEN 325 MG SUPP PR PRN (10:42)
--- NOTE | 2018-07-06 10:43 | NUR ---
Dr Ortiz aware of temp 101.2, CO tylenol administered and blood cultures ordered.
--- NOTE | 2018-07-06 11:40 | NUR ---
Cuff pressure is at 24
[2018-07-06] MEDS: VANCOMYCIN 1GM/NS 250 ML 250 ML IV SCH (16:22)
--- NOTE | 2018-07-06 16:22 | NUR ---
One dose vanc held per Dr Urbina request.
[2018-07-06] MEDS: CEFEPIME 1GM/NS 0.9% 50 ML 50 ML IV SCH (16:48)
[2018-07-06] MEDS ORDERED: WARFARIN SOD 2 MG TAB PO SCH (17:00)
[2018-07-06] MEDS ORDERED: WARFARIN SOD 1 MG TAB PO SCH (17:00)
[2018-07-06] MEDS: VASOPRESSIN 100 UNIT in DEXTROSE 5% 100ML 100 ML IV SCH (18:00)
[2018-07-06 19:11] LABS: BASOPHILS % 0.4 % (0.0-1.0); EOSINOPHILS # (AUTO) 0.1 (0.0-0.4); EOSINOPHILS % 1.4 % (0.0-6.0); HEMATOCRIT 32.1 % (34.2-44.1); HEMOGLOBIN 10.5 g/dL (12.0-16.0); LYMPHOCYTES # (AUTO) 1.3 (1.0-3.2); LYMPHOCYTES % 15.2 % (18.0-39.1); MEAN CORPUSCULAR HEMOGLOBIN 28.5 pg (28-32); MEAN CORPUSCULAR HGB CONC 32.7 g/dL (31-35); MONOCYTES # (AUTO) 0.5 (0.2-0.8); MONOCYTES % 5.7 % (4.4-11.3); NEUTROPHILS # (AUTO) 6.5 (2.1-6.9); NEUTROPHILS % 76.9 % (38.7-80.0); PLATELET COUNT 173 x10e3/uL (140-360); RED BLOOD COUNT 3.69 x10e6/uL (3.6-5.1)
--- NOTE | 2018-07-06 19:19 | NUR ---
Right CVL dressing changed. Bedside report given to SANDRO Lopez.
[2018-07-06 19:24] LABS: INR 2.4; PROTHROMBIN TIME 27.9 seconds (11.9-14.5)
[2018-07-06 19:25] LABS: PARTIAL THROMBOPLASTIN TIME 69.4 seconds (23.8-35.5)
[2018-07-06 19:33] LABS: ALBUMIN 2.6 g/dL (3.5-5.0); ALBUMIN/GLOBULIN RATIO 0.8 (0.8-2.0); ANION GAP 14.7 mmol/L (8-16); CALCIUM 8.2 mg/dL (8.4-10.2); CREATININE, SERUM 1.28 mg/dL (0.57-1.11); POTASSIUM 3.7 mmol/L (3.5-5.1)
[2018-07-06] MEDS: LORAZEPAM INJ 2 MG/ML VIAL IV PRN (23:45)
[2018-07-07] VITALS (31 sets, daily range): BP systolic 73–121; BP diastolic 44–92
[2018-07-07] MEDS: INSULIN REGULAR, HUMAN 100 UNIT/1 ML 3ML VIAL SQ SCH ×5 (00:05→23:45)
[2018-07-07] MEDS: ACETAMINOPHEN 325 MG SUPP PR PRN (00:05)
--- NOTE | 2018-07-07 04:58 | NUR ---
During comfort rounds and while turning Patient, RN observed abdomen was distended and firm. Patient grimaced upon palpation. Tube feeding was placed on hold while residuals checked and found to be less than 10 mLs. NGT was then placed to low continuous suction and a KUB was ordered per protocol.
[2018-07-07 05:23] LABS: BASOPHILS % 0.3 % (0.0-1.0); EOSINOPHILS # (AUTO) 0.1 (0.0-0.4); EOSINOPHILS % 1.1 % (0.0-6.0); HEMATOCRIT 32.7 % (34.2-44.1); HEMOGLOBIN 10.8 g/dL (12.0-16.0); LYMPHOCYTES # (AUTO) 1.6 (1.0-3.2); LYMPHOCYTES % 20.9 % (18.0-39.1); MEAN CORPUSCULAR HEMOGLOBIN 29.3 pg (28-32); MEAN CORPUSCULAR VOLUME 88.9 fL (81-99); MONOCYTES # (AUTO) 0.3 (0.2-0.8); MONOCYTES % 4.2 % (4.4-11.3); NEUTROPHILS # (AUTO) 5.7 (2.1-6.9); NEUTROPHILS % 73.2 % (38.7-80.0); PLATELET COUNT 172 x10e3/uL (140-360); RED BLOOD COUNT 3.68 x10e6/uL (3.6-5.1); RED CELL DISTRIBUTION WIDTH 16.4 % (11.7-14.4)
[2018-07-07 05:42] LABS: INR 1.81; PROTHROMBIN TIME 22.4 seconds (11.9-14.5)
[2018-07-07] MEDS: LORAZEPAM INJ 2 MG/ML VIAL IV PRN (05:45)
[2018-07-07 05:56] LABS: ALBUMIN 2.6 g/dL (3.5-5.0); ALBUMIN/GLOBULIN RATIO 0.8 (0.8-2.0); ANION GAP 13.1 mmol/L (8-16); CREATININE, SERUM 1.25 mg/dL (0.57-1.11); POTASSIUM 4.1 mmol/L (3.5-5.1)
[2018-07-07] MEDS: METOPROLOL TARTRATE 50 MG TAB PO SCH ×3 (06:00→21:47)
[2018-07-07] MEDS ORDERED: SODIUM CHLORIDE 0.9% 1000ML 1,000 ML IV ONE (06:15)
[2018-07-07] MEDS ORDERED: SODIUM CHLORIDE 0.9% 1000ML 1,000 ML ONE (06:15)
--- NOTE | 2018-07-07 06:18 | NUR ---
RN called Jinny Irving NP regarding patient's status. Orders obtained. Also updated her on patient's abdomen after 1 hours NGT to suction abdomen less distended and soft. Asked about getting pressors for BP and Jinny declined stating give her 500 cc bolus and then continue fluids at 100 mL/hr. Give IV Tylenol for Temp.
[2018-07-07] MEDS ORDERED: ACETAMINOPHEN 1000 MG/100 ML IV STA (06:20)
[2018-07-07] MEDS ORDERED: ACETAMINOPHEN 1000 MG/100 ML 100 ML IV ONE (06:22)
[2018-07-07] MEDS ORDERED: ACETAMINOPHEN 1000 MG/100 ML IV PRN (06:30)
--- NOTE | 2018-07-07 06:33 | Diagnostic Imaging Report ---
CHEST SINGLE (PORTABLE), 07/07/2018 6:30 AM Technique: CHEST SINGLE (PORTABLE) Comparison: Previous day Clinical history: Respiratory failure Findings: See Impression Impression: 1. Lines/Tubes: Stable ET tube about 3 cm above the fred, subdiaphragmatic NG tube, right IJ central venous catheter 2. Stable visualized cardiac silhouette. Aortic calcification. 3. Increased left lung opacity and mild volume loss which may be related to mucous plugging/atelectasis. Probable associated pleural fluid. 4. Persistent diffuse right lung opacity possibly component of edema and underlying layering fluid. Signed by: Dr Sarah Aguilera MD on 07/07/2018 6:30 AM
--- NOTE | 2018-07-07 06:38 | Diagnostic Imaging Report ---
ABDOMEN-1VIEW (KUB) Clinical history: Abdominal distention Technique: AP view abdomen Comparison: None Findings: Limited by motion artifact and portable technique. Hemidiaphragms are excluded. NG tube terminates within the expected stomach. Chase projects over the pelvis. No dilated loops of bowel. Vascular calcifications. Impression: Limited study without evidence of obstruction. Signed by: Dr Sarah Aguilera MD on 07/07/2018 6:34 AM
[2018-07-07] MEDS ORDERED: VASOPRESSIN INJ 20 UNIT/ML VIAL ONE (06:45)
[2018-07-07] MEDS ORDERED: DEXTROSE 5% 100ML 100 ML IV ONE (06:46)
[2018-07-07] MEDS: VASOPRESSIN 100 UNIT in DEXTROSE 5% 100ML 100 ML IV SCH ×3 (06:54→08:15)
[2018-07-07] MEDS ORDERED: SODIUM CHLORIDE 0.9% 1000ML 1,000 ML IV SCH (07:30)
[2018-07-07] MEDS: FAMOTIDINE 20 MG/2 ML VIAL IV SCH ×2 (08:57→21:47)
[2018-07-07] MEDS: LEVOFLOXACIN 250MG/D5W 50ML 50 ML IV SCH (08:57)
[2018-07-07] MEDS: DIGOXIN 0.125 MG TAB PO SCH (08:58)
--- NOTE | 2018-07-07 09:00 | NUR ---
Dr Rama Urbina and family conference for appx 60 minutes regarding patient condition, options, and plan. Family states there are 12 siblings and the patient had a DNR status previously in [place], so they are discussing how to move forward. IVF, fentanyl, and pressor to stay the same presently. Tube feed to remain off for now. Orders for chest US and plan for bronchoscopy at 1500 today.
--- NOTE | 2018-07-07 09:05 | NUR ---
Spoke with Dr Albright, aware of consult.
--- NOTE | 2018-07-07 09:52 | NUR ---
Consent obtained for bronchoscopy via inventory assistant video assistance.
--- NOTE | 2018-07-07 10:00 | NUR ---
ASSESSMENT: Spiritual concern Candle Wrapping Machine Operator called out by pt's daughter for prayer. [employer] used for interpretation. Pt sleeping soundly with pt's daughter at bedside. Pt's daughter states her mother identifies as Voodoo. Intervention: Provided empathic listening and pastoral support. Provided prayer from Voodoo tradition. Provided information on how to reach ichthyologist, if needed. Outcome: Will follow as able. [facility]OR [facility] Spiritual Care Department O: [phone] Pager: [phone] ([phone] number calling from)
--- NOTE | 2018-07-07 12:09 | Diagnostic Imaging Report ---
Ultrasound chest History: Left pleural effusion. Comparison: Chest x-ray 07/07/2018 Findings: Small right pleural effusion without septation. Trace left pleural effusion without septation. Visualized portion of the spleen is unremarkable. IMPRESSION: Bilateral pleural effusions as described above. Signed by: Dr. Eloise Mcnally MD on 07/07/2018 12:05 PM
--- NOTE | 2018-07-07 12:43 | Progress Note ---
DATE: July 07, 2018 PULMONARY/CRITICAL CARE PROGRESS NOTE SUBJECTIVE: The patient worsened overnight. She had temperatures of 101 to 102. She was started on pressors to maintain her blood pressure. She also was required an increase in her FiO2 to 60%. PHYSICAL EXAMINATION VITAL SIGNS: The temperature is 101.8. The blood pressure is 100/65, on vasopressin and saturation is 95%. Patient is still on a pressure-regulated volume control with 7 of PEEP and 60% FiO2. HEENT: Shows no facial swelling or erythema. There is a right IJ line in place. The oroendotracheal tube looks clean. There are no adhesions around the mouth. CARDIAC: Reveals a regular rate and rhythm with normal S1 and S2. There are no murmurs or rubs. LUNGS: Auscultation of the lungs reveals decreased breath sounds on the left with rhonchorous breath sounds bilaterally. ABDOMEN: Distended. It is not tender. EXTREMITIES: The patient has no leg edema. NEUROLOGICAL: The patient is sedated. IMPRESSION 1. Aspiration pneumonia with severe sepsis. 2. Obbxx-ij-kfgmvtm respiratory failure. 3. Atrial fibrillation. 4. Worsening abdominal distention. 5. Metabolic encephalopathy. 6. Left pleural effusion. 7. Coagulopathy. PLAN 1. Continue antibiotics and await culture results. 2. Infectious disease consult. 3. Pressors as needed to maintain a MAP of 65. 4. IV fluid as tolerated without causing worsening pulmonary edema. 5. Case discussed extensively with 3 daughters. They are unsure about DNR or palliative care at this time and wish to proceed with aggressive measures. 6. Arrange for bronchoscopy later today. 7. Family wants to hold off on thoracentesis, so that we will obtain an ultrasound of the chest to determine how big the pleural effusion on the left is. Case discussed with nursing, respiratory, and Dr. Ortiz. Greater than 35 minutes in direct critical care time independent of any procedures. Job#: [id number] RUIZ
[2018-07-07] MEDS ORDERED: MIDAZOLAM HCL 2 MG/2 ML VIAL ONE ×2 (14:54→15:02)
--- NOTE | 2018-07-07 14:55 | NUR ---
2742 Dr Rama Urbina to bedside for bronchoscopy; time out performed. Found that 7.5 ETT necessary to change; bougie used to place size 8; patient tolerate well with VSS throughout. Bronch performed with washings obtained. Patient stable and VSS presently, awaiting chest and abd Xray.
[2018-07-07] MEDS ORDERED: MIDAZOLAM HCL 2 MG/2 ML VIAL IV ONE ×2 (16:00)
[2018-07-07] MEDS: CEFEPIME 1GM/NS 0.9% 50 ML 50 ML IV SCH (16:15)
[2018-07-07] MEDS: DOXYCYCLINE 100MG/NS 100ML 100 ML IV SCH (16:15)
[2018-07-07] MEDS ORDERED: WARFARIN SOD 1 MG TAB PO SCH (17:00)
[2018-07-07] MEDS: VANCOMYCIN 1GM/NS 250 ML 250 ML IV SCH (17:04)
--- NOTE | 2018-07-07 17:04 | Consultation ---
DATE OF CONSULT: July 07, 2018 INFECTIOUS DISEASE CONSULTATION ATTENDING PHYSICIAN: Dr. Camron Ortiz. REASON FOR CONSULTATION: Fever and left pleural effusion. Thank you, Dr. Ortiz and Dr. Urbina, for asking me to see this patient. HISTORY OF PRESENT ILLNESS: The patient is an 88-year-old woman referred for fever and left pleural effusion. She is unable to give history. Thus information was obtained from her daughter through professional finish molder. The patient was admitted through the emergency department with acute pulmonary edema, bacterial pneumonia, and hypoxic respiratory failure. She was brought to the emergency department on July 04, 2018, with rapid heart rate, hypotension, and low oxygen saturation. The patient later started spiking fever. In the emergency department, she was intubated and noted to have temperature of 99.9 degrees Fahrenheit, pulse rate 94, respiratory rate 16 on a ventilator, blood pressure 97/53, and oxygen saturation 80% on 70% FiO2. Initial laboratory studies showed blood leukocyte count of 8710 with 70.1% neutrophils, BUN 40, creatinine 1.56, troponin less than 0.01, and BNP 1075.7. Rapid influenza test was negative. Also, urinalysis was negative. The chest x-ray showed interstitial and alveolar opacities. The patient continues to spike fever. She was hospitalized in May 2018 and there is indoor parake[place] where she lives. PAST MEDICAL HISTORY: Diabetes mellitus type 2 with peripheral neuropathy, hypertension, chronic atrial fibrillation, congestive heart failure, chronic kidney disease stage 3, dementia, and debility. PAST SURGICAL HISTORY: Hysterectomy. The patient's daughter is unsure about cholecystectomy. ALLERGIES: NO KNOWN DRUG ALLERGIES. MEDICATIONS: The current antibiotics; Levaquin 250 mg IV piggyback q.24 hours, cefepime 1 gram IV piggyback q.24 hours, vancomycin 1 gram IV piggyback q.24 hours. IMMUNIZATIONS: She received influenza vaccine in April 2018 and pneumococcal vaccination about 3 years ago. FAMILY HISTORY: Noncontributory. SOCIAL HISTORY: No alcohol, tobacco, or recreational drug use. REVIEW OF SYSTEMS: Unable to obtain. PHYSICAL EXAMINATION GENERAL: Critically ill. VITAL SIGNS: T-max 102.8, pulse rate 110, respiratory rate 12, blood pressure 108/57, weight 139 pounds. HEENT: Normocephalic. There is no icterus or injection of conjunctivae. There is no ear or nasal discharge. Orally intubated. NECK: Supple. No meningismus. LUNGS: Few rhonchi bilaterally. HEART: Normal S1 and S2. Tachycardic, irregularly irregular. ABDOMEN: Soft and nontender. EXTREMITIES: There is no edema, clubbing, or cyanosis. SKIN: There is no acute erythema. MERCERIZING RANGE CONTROLLER: Mildly sedated but arousable. LABORATORY AND DIAGNOSTICS: WBC 7830, hemoglobin 10.8, platelets 172,000, neutrophils 73.2, lymphocytes 20.9, monocytes 4.2, eosinophils 1.2, and basophils 0.3. BUN 21, creatinine 1.25, blood glucose 190, AST 23, ALT 33, alkaline phosphatase 90, total bilirubin 0.4, and BNP 1181.2. Urine Legionella antigen is pending. Multiple blood cultures are negative. Urine culture is also negative. Chest ultrasound showed a small right pleural effusion and trace left pleural effusion. IMPRESSION 1. Fever. 2. Pneumonia, present on admission. 3. Acute hypoxic respiratory failure. 4. Diabetes mellitus type 2 with peripheral neuropathy. 5. Congestive heart failure. 6. Acute kidney injury, on chronic kidney disease stage 3. 7. Dementia. PLAN 1. Check respiratory virus PCR. 2. Change Levaquin to doxycycline 100 mg IV piggyback q.12 hours. Job#: [id number] CORDELIA
[2018-07-07 17:19] LABS: ABG HCO3 21 mmol/L (23-28); ABG PCO2 39 mmHg (41-51); ABG PH 7.34 (7.31-7.41); ABG PO2 100 mmHg (80-105)
--- NOTE | 2018-07-07 17:31 | NUR ---
Dr Urbina aware of urine output this shift; 250 mL one time bolus over 2 hours ordered.
--- NOTE | 2018-07-07 17:32 | Diagnostic Imaging Report ---
EXAMINATION: CHEST SINGLE (PORTABLE) COMPARISON: Chest x-ray 0555 hours INDICATION: ^ETT placement DISCUSSION: Frontal view of the chest obtained at 1605 hours. HEART AND MEDIASTINUM: Stable cardiomegaly and aortic ectasia. LINES: Endotracheal tube terminates 2.5 cm above the fred. Right IJ catheter terminates in the SVC. Enteric tube extends past the diaphragm. LUNGS: There is reaeration of the left lung with patchy bilateral airspace opacities and diffuse vascular congestion. PLEURA: No large effusions. No pneumothorax BONES AND SOFT TISSUES: Osseous structures are stable. The soft tissues are normal. IMPRESSION: 1. Support devices as described above. 2. Reexpansion of the left lung with bilateral alveolar airspace opacities and vascular congestion suggestive of pulmonary edema. Signed by: Dr. Eloise Mcnally MD on 07/07/2018 5:28 PM
--- NOTE | 2018-07-07 17:34 | Diagnostic Imaging Report ---
Abdomen/KUB INDICATION: ^ETT placement COMPARISON: Abdomen x-ray 0534 hours. FINDINGS: Portable, supine image obtained at 1614 hours. Medical Devices: Right IJ catheter terminates in the SVC. Enteric tube extends into the proximal stomach. Chase catheter is present. Bowel: Unremarkable bowel gas pattern. No dilated bowel loops. No pneumatosis. Free air: None Calcifications: None over the renal shadows or along the expected course of the ureters. Vascular calcifications are present. There are calcifications of the costochondral junctions Organomegaly: None Lung bases: Cardiomegaly and patchy airspace opacities suggestive of pulmonary edema or infiltrate. Small effusions are suspected. Bones: Stable IMPRESSION: Enteric tube terminates in the proximal stomach. Unremarkable bowel gas pattern. Signed by: Dr. Eloise Mcnally MD on 07/07/2018 5:31 PM
[2018-07-07] MEDS ORDERED: SODIUM CHLORIDE 0.9% 250ML 250 ML IV ONE (18:00)
--- NOTE | 2018-07-07 23:47 | Operative Report ---
DATE OF PROCEDURE: July 07, 2018 PREOPERATIVE DIAGNOSES 1. Left lower lobe atelectasis. 2. Pjzpp-hr-skxkbfd systolic congestive heart failure. 3. Pneumonia. POSTOPERATIVE DIAGNOSES 1. Left lower lobe atelectasis. 2. Xvypq-jm-nskiika systolic congestive heart failure. 3. Pneumonia. PROCEDURE: Endotracheal intubation and bronchoscopy. BUSINESS SEGMENT MANAGER: None. CONSENT: Consent was obtained from the family. SEDATION: Versed 3 mg intravenously was used. OPERATIVE REPORT: Patient was placed in the supine position. She received 2 mg of Versed. A bougie was placed through her 7.5 endotracheal tube. An 8.0 endotracheal tube was then passed over the bougie and through the glottis. The patient was confirmed with direct observation using a 3-0 laryngoscope. Patient had good CO2 return and equal breath sounds bilaterally after the procedure. The bronchoscope was then introduced through the endotracheal tube. The tracheal mucosa was normal. The fred was normal. Scope was positioned into the right tracheobronchial tree. The right upper, right middle lobe, and right lower lobe were all normal to the subsegmental level. Washings were obtained throughout the right lung for laboratory analysis. Scope was then repositioned into the left tracheobronchial tree. The left upper lobe lingula was examined. There were no endobronchial lesions. The scope was then positioned into the left lower lobe. There was friable irritated mucosa with some mucus in the left lower lobe bronchus. This was removed and additional washings were obtained. COMPLICATIONS: None. ESTIMATED BLOOD LOSS: None. Job#: [id number] MOHAN CHERRY
[2018-07-08] VITALS (24 sets, daily range): BP systolic 99–131; BP diastolic 50–86
[2018-07-08] MEDS: DOXYCYCLINE 100MG/NS 100ML 100 ML IV SCH ×2 (03:16→15:33)
[2018-07-08 05:28] LABS: BASOPHILS % 0.2 % (0.0-1.0); EOSINOPHILS # (AUTO) 0.2 (0.0-0.4); EOSINOPHILS % 2.1 % (0.0-6.0); HEMATOCRIT 32.3 % (34.2-44.1); HEMOGLOBIN 10.1 g/dL (12.0-16.0); LYMPHOCYTES # (AUTO) 0.9 (1.0-3.2); LYMPHOCYTES % 11.4 % (18.0-39.1); MEAN CORPUSCULAR HEMOGLOBIN 28.6 pg (28-32); MEAN CORPUSCULAR HGB CONC 31.3 g/dL (31-35); MEAN CORPUSCULAR VOLUME 91.5 fL (81-99); MONOCYTES # (AUTO) 0.4 (0.2-0.8); MONOCYTES % 4.6 % (4.4-11.3); NEUTROPHILS # (AUTO) 6.6 (2.1-6.9); NEUTROPHILS % 81.3 % (38.7-80.0); PLATELET COUNT 178 x10e3/uL (140-360); RED BLOOD COUNT 3.53 x10e6/uL (3.6-5.1); RED CELL DISTRIBUTION WIDTH 16.3 % (11.7-14.4)
[2018-07-08 05:45] LABS: INR 1.45; PROTHROMBIN TIME 18.8 seconds (11.9-14.5)
[2018-07-08 05:59] LABS: ANION GAP 14.3 mmol/L (8-16); CALCIUM 8.4 mg/dL (8.4-10.2); CREATININE, SERUM 1.19 mg/dL (0.57-1.11); MAGNESIUM 2.1 MG/DL (1.3-2.1); POTASSIUM 4.3 mmol/L (3.5-5.1)
--- NOTE | 2018-07-08 06:42 | Diagnostic Imaging Report ---
CHEST SINGLE (PORTABLE), 07/08/2018 6:30 AM Technique: CHEST SINGLE (PORTABLE) Comparison: Previous day Clinical history: Respiratory failure Findings: See Impression Impression: 1. Lines/Tubes: Stable ET tube 1.3 cm above the fred, subdiaphragmatic NG tube, right IJ central venous catheter. 2. Stable enlarged cardiomediastinal silhouette. 3. Increased diffuse opacities, possibly a component of worsening edema, atelectasis and layering pleural fluid. Signed by: Dr Sarah Aguilera MD on 07/08/2018 6:39 AM
[2018-07-08] MEDS: METOPROLOL TARTRATE 50 MG TAB PO SCH ×3 (06:49→21:31)
[2018-07-08] MEDS: INSULIN REGULAR, HUMAN 100 UNIT/1 ML 3ML VIAL SQ SCH ×3 (06:50→18:26)
--- NOTE | 2018-07-08 06:50 | NUR ---
TITRATED FENTANYL DRIP THROUGH THE NIGHT TO ENSURE PATIENT CALM AND COMFORTABLE. TITRATED UP WHEN HEART RATE BECAME TACHYCARDIC AND LOWERED IT WHEN VITAL SIGNS WNR. WHEN PATIENT IS OVERSTIMULATED PATIENT HEART RATE INCREASES. REPORT GIVEN TO JESSA JO AT BEDSIDE
[2018-07-08] MEDS: DIGOXIN 0.125 MG TAB PO SCH (09:00)
[2018-07-08] MEDS: FAMOTIDINE 20 MG/2 ML VIAL IV SCH ×2 (09:00→21:30)
[2018-07-08 12:30] LABS: ABG PH 7.37 (7.31-7.41)
[2018-07-08 12:31] LABS: ABG HCO3 22 mmol/L (23-28); ABG PCO2 38 mmHg (41-51); ABG PO2 61 mmHg (80-105)
--- NOTE | 2018-07-08 13:00 | NUR ---
Dr Rama Urbina returned to bedside and family updated on plan of care and patient present condition. Dr Socrates Salinas to bedside.
[2018-07-08] MEDS: LORAZEPAM INJ 2 MG/ML VIAL IV PRN (13:30)
--- NOTE | 2018-07-08 14:09 | Progress Note ---
DATE: July 08, 2018 SUBJECTIVE: Patient was weaned off pressors early this morning. She was more awake this morning than yesterday. She was placed on a spontaneous breathing trial with a pressure support of 8 and a CPAP of 5. She tolerated this for an hour and 15 minutes before becoming tachypneic and being switched back to assist control. PHYSICAL EXAMINATION VITAL SIGNS: The patient is afebrile with blood pressure of 111/56 and the pulse is 110 to 120. She has rapid atrial fibrillation. HEENT: Shows no facial swelling or erythema. His nasal mucosa is normal. The patient has an oral endotracheal tube in place. CARDIAC: Reveals irregularly irregular rhythm with normal S1 and S2. There are no murmurs or rubs. LUNGS: Auscultation of the lungs reveals rhonchus breath sounds bilaterally. There is no wheezing. ABDOMEN: Soft, nontender. There is less distention than yesterday. EXTREMITIES: There is no leg edema or calf tenderness. There is no cyanosis or clubbing. SKIN: Shows no rashes. NEUROLOGICAL: Shows no focal abnormalities. LABORATORY DATA: White blood cell count is 8 and hemoglobin is 10.1. The platelet count is 178. The BUN to creatinine ratio is 21 to 1.2. The other electrolytes are within normal limits. The blood gases, 7.37, 38, 61, and 22. RADIOGRAPHIC DATA: Shows improvement in the left atelectasis. IMPRESSION 1. Aspiration pneumonia with severe sepsis. 2. Tsgnr-jj-majmdjm respiratory failure. 3. Atrial fibrillation. 4. Coagulopathy. PLAN 1. Continue current antibiotics. 2. Repeat spontaneous breathing trial in the morning and work towards extubation. 3. Continue enteral feedings. 4. Continue current cardiology management. 5. Case discussed with daughter, nursing staff, and respiratory. Greater than 35 minutes in direct critical care time during 2 separate visits. Job#: [id number] CORDELIA
[2018-07-08] MEDS: CEFEPIME 1GM/NS 0.9% 50 ML 50 ML IV SCH (15:33)
[2018-07-08] MEDS: VANCOMYCIN 1GM/NS 250 ML 250 ML IV SCH (16:01)
[2018-07-08] MEDS: VASOPRESSIN 100 UNIT in DEXTROSE 5% 100ML 100 ML IV SCH (18:00)
--- NOTE | 2018-07-08 18:55 | NUR ---
BEDSIDE REPORT WAS RECEIVED. PATIENT CONTINUES ON FENTANYL DRIP AND AT THIS TIME AT A RATE OF 100MCG/HR. FAMILY AT BEDSIDE
--- NOTE | 2018-07-08 21:27 | NUR ---
DISREGARD FINGER STICK GLUCOSE AT 2127 READING 56. WRONG STICKER WAS SCANNED IN. THIS PATIENT BLOOD SUGAR TO BE CHECKED AT 12MN
[2018-07-08] MEDS: FENTANYL CITRATE INJ 2,000 MCG in SODIUM CHLORIDE 0.9% 250ML 210 ML IV PRN (21:30)
[2018-07-09] VITALS (38 sets, daily range): BP systolic 100–188; BP diastolic 54–112
[2018-07-09] MEDS: INSULIN REGULAR, HUMAN 100 UNIT/1 ML 3ML VIAL SQ SCH ×4 (00:36→18:05)
--- NOTE | 2018-07-09 00:39 | NUR ---
PATIENT CONTINUES TO BECOME MORE RESTLESS AND VENT ALARMS SOUNDING DESPITE RESP TECH BEDSIDE INTERVENTIONS. HEART RATE HAS BEEN IRREGULR BUT AT A RATE 100 OR BELOW. TONIGHT HR IRREGULAR AND HR RATE AT A HIGHER RATE AT TIMES BETWEEN 130s-140s. I HAVE TITRATED FENTANYLY DRIP UP AT A RATE OF 300MCG/HR. IF UNSUCCESSFUL WITH THE INCREASED TITRATION RATE WILL ADMINISTER A PRN MEDICATION TO HELP CALM AND COMFORTABLE
[2018-07-09] MEDS: DOXYCYCLINE 100MG/NS 100ML 100 ML IV SCH ×2 (02:44→15:55)
[2018-07-09] MEDS: ACETAMINOPHEN 325 MG SUPP PR PRN (03:15)
[2018-07-09 04:38] LABS: BASOPHILS # (AUTO) 0.1 (0.0-0.1); BASOPHILS % 0.7 % (0.0-1.0); EOSINOPHILS # (AUTO) 0.2 (0.0-0.4); EOSINOPHILS % 1.6 % (0.0-6.0); HEMATOCRIT 30.1 % (34.2-44.1); HEMOGLOBIN 9.7 g/dL (12.0-16.0); LYMPHOCYTES # (AUTO) 0.6 (1.0-3.2); LYMPHOCYTES % 3.9 % (18.0-39.1); MEAN CORPUSCULAR HEMOGLOBIN 28.3 pg (28-32); MEAN CORPUSCULAR HGB CONC 32.2 g/dL (31-35); MEAN CORPUSCULAR VOLUME 87.8 fL (81-99); MONOCYTES # (AUTO) 0.4 (0.2-0.8); MONOCYTES % 2.9 % (4.4-11.3); NEUTROPHILS % 82.1 % (38.7-80.0); PLATELET COUNT 206 x10e3/uL (140-360); RED BLOOD COUNT 3.43 x10e6/uL (3.6-5.1); RED CELL DISTRIBUTION WIDTH 15.2 % (11.7-14.4)
[2018-07-09 04:58] LABS: ALBUMIN 2.5 g/dL (3.5-5.0); ALBUMIN/GLOBULIN RATIO 0.7 (0.8-2.0); ANION GAP 14.6 mmol/L (8-16); CALCIUM 8.6 mg/dL (8.4-10.2); CREATININE, SERUM 1.17 mg/dL (0.57-1.11); POTASSIUM 4.6 mmol/L (3.5-5.1)
[2018-07-09 05:15] LABS: MAGNESIUM 1.9 MG/DL (1.3-2.1); PHOSPHORUS 2.4 MG/DL (2.3-4.7)
[2018-07-09] MEDS: METOPROLOL TARTRATE 50 MG TAB PO SCH ×3 (05:40→21:06)
[2018-07-09] MEDS: FENTANYL CITRATE INJ 2,000 MCG in SODIUM CHLORIDE 0.9% 250ML 210 ML IV PRN (06:45)
--- NOTE | 2018-07-09 07:20 | NUR ---
turned sedation off for ventilator weaning
[2018-07-09 07:57] LABS: ANISOCYTOSIS SLIGHT; BAND NEUTROPHILS % (MANUAL) 4 %; EOSINOPHILS % (MANUAL) 1 % (0-7); LYMPHOCYTES % (MANUAL) 3 % (19-48); METAMYELOCYTES % (MANUAL) 3 % (0-0); MONOCYTES % (MANUAL) 2 % (3.4-9.0); NEUTROPHILS % (MANUAL) 87 % (40-74); PLATELET ESTIMATE ADEQUATE; PLATELET MORPHOLOGY COMMENT NORMAL; RBC MORPHOLOGY COMMENT ABNORMAL; TOXIC GRANULATION SLIGHT
--- NOTE | 2018-07-09 08:30 | NUR ---
Dr. Rama Urbina turned ventilator to cpap.
[2018-07-09] MEDS: FUROSEMIDE INJ 10 MG/ML 4 ML VIAL IV SCH ×2 (09:05→21:05)
[2018-07-09] MEDS: FAMOTIDINE 20 MG/2 ML VIAL IV SCH ×2 (09:09→21:05)
[2018-07-09] MEDS: DIGOXIN 0.125 MG TAB PO SCH (09:10)
[2018-07-09] MEDS: DOCUSATE SODIUM LIQD 100 MG/10 ML UDC NG SCH (09:10)
--- NOTE | 2018-07-09 09:57 | NUR ---
patient opening eyes but not following commands yet. remains calm and stable while weaning on ventilator
--- NOTE | 2018-07-09 10:37 | Diagnostic Imaging Report ---
CHEST SINGLE (PORTABLE), 07/09/2018 6:30 AM Technique: CHEST SINGLE (PORTABLE) Comparison: Previous day Clinical history: Respiratory failure Findings: See Impression Impression: Limited by portable technique, body habitus and overlying chin. 1. Lines/Tubes: ET tube at the fred/right mainstem bronchus, likely accentuated by chin positioning. Recommend retraction. Stable visualized right IJ central venous catheter, subdiaphragmatic NG tube. 2. Stable enlarged cardiomediastinal silhouette 3. Increased left basilar atelectasis/consolidation. Persistent diffuse opacities, possibly a component of underlying edema, atelectasis and pleural fluid. Signed by: Dr Sarah Aguilera MD on 07/09/2018 6:46 AM
[2018-07-09] MEDS ORDERED: METOPROLOL TARTRATE 50 MG TAB PO SCH (12:00)
[2018-07-09] MEDS: VASOPRESSIN 100 UNIT in DEXTROSE 5% 100ML 100 ML IV SCH (12:01)
--- NOTE | 2018-07-09 12:05 | NUR ---
ASSESSMENT: Spiritual concern Pt asleep and pt's daughters at bedside. Pt's daughter, Monika, is bilingual. Pt's daughter is optimistic because her mother is responding to stimulation. Pt's daughter states family called a local [employer] [facility] to request a supervisor electronic testing for anointing of the sick. Intervention: Provided empathic listening and facilitated illness review. Provided prayer and informed family of availability of plan nurse services. Outcome: Will continue to follow as able. VITOR JOHNSON Buffer Machine Spiritual Care Department O: [phone] Pager: [phone] ([phone] number calling from)
[2018-07-09 12:11] LABS: ABG HCO3 23 mmol/L (23-28); ABG PCO2 35 mmHg (41-51); ABG PH 7.41 (7.31-7.41); ABG PO2 54 mmHg (80-105)
--- NOTE | 2018-07-09 12:55 | NUR ---
extubated patient to 6 L per NC Addendum: 07/09/18 at 1444 by Evelyn Gandhi RN Dr Rama Urbina at [facility]
--- NOTE | 2018-07-09 13:28 | NUR ---
ST NOTE Order received for BSE/MBS. Pt extubated today, will see pt at bedside tomorrow on 07/10/18. Handoff to SANDRO Rivas
--- NOTE | 2018-07-09 13:51 | Progress Note ---
DATE: July 09, 2018 PULMONARY/CRITICAL CARE PROGRESS NOTE SUBJECTIVE: Patient received increased fentanyl last night and was more sedated this morning. Fentanyl was subsequently held. Patient was placed on a spontaneous breathing trial and tolerated a CPAP of 5 and a pressure support of 5 for 90 minutes with a respiratory rate of 21 and tidal volumes of 350 mL. The patient remains in atrial fibrillation with some tachycardia from 100 to 110. Her blood pressure has been stable. OBJECTIVE: VITAL SIGNS: The patient is afebrile. The blood pressure is 131/81, and the pulse is 116. Patient has been extubated and is now on the high-flow nasal cannula. HEENT: Shows a right IJ line. The site looks clean. There is no drainage. CARDIAC: Reveals irregularly irregular rhythm with a normal S1 and S2. There are no murmurs or rubs. LUNGS: Auscultation reveals decreased breath sounds at the bases. There is no wheezing. ABDOMEN: Is soft and nontender. There is no rebound or guarding. EXTREMITIES: Shows no leg edema or calf tenderness. LAB DATA: White blood cell count is 14.6 with a hemoglobin of 9.7 and a platelet count of 206. The BUN to creatinine ratio is 23 to 1.17. The blood sugars are in the 250 to 300 range. Blood gas is 7.41, 35, 54 and 23. RADIOGRAPHIC DATA: Chest x-ray shows an enlarged cardiac silhouette. There is some increased left-sided consolidation, and the tube is close to the fred and right mainstem bronchus. IMPRESSION: 1. Aspiration pneumonia with severe sepsis. 2. Zcmwm-pw-wygbqvs respiratory failure. 3. Cmdsf-vo-bwvvzvc systolic congestive heart failure. 4. Atrial fibrillation. 5. Coagulopathy. 6. Acute kidney injury. 7. Dementia. PLAN: 1. Proceed with extubation and place the patient on high-flow nasal cannula. 1. Continue current antibiotics. 2. Continue digoxin and Lopressor as needed to manage heart rate. 3. Enteral feedings. 4. Case discussed with respiratory and nursing. 5. Case discussed with the three daughters and the son. 6. Greater than 35 minutes in direct critical care time. Job#: [id number] EV
[2018-07-09] MEDS: METOPROLOL TARTRATE INJ 1 MG/ML VIAL IV PRN ×2 (14:40→22:43)
--- NOTE | 2018-07-09 14:43 | NUR ---
patient with increased work of breathing. rr 27 and O2 sats 93%. Bi-pap ordered and applied. Dr Yaritza Urbina at bedside.
--- NOTE | 2018-07-09 14:51 | NUR ---
DISCUSSED PT IN ROUNDS TODAY. PT WEANED FROM VENT TO CPAP AND TOLERATING WELL. ABG DRAWN TO ASSESS PT. CONT IV ABX X2, LASIX AND METOPROLOL INCREASED TO 100MG. WILL CONT TO FOLLOW.
--- NOTE | 2018-07-09 15:12 | NUR ---
Nutrition Intervention Note RD Recommendation(s) for Physician: -Rec cardiac/ ADA diet as medically appropriate; diet texture per GETTERER -Consider Glucerna BID if PO < 50% Plan of Care: RD following, monitoring for tolerance and adequacy Nutrition reason for involvement: Follow up RD Assessment 07/09 Chart reviewed. Pt was extubated this afternoon. TF was off prior to extubation. Pending bedside swallow evaluation. Currently on insulin, colace, pepcid, lasix, and abx. Will continue to monitor and follow. 07/05- Chart reviewed. 88yo F, who is admitted for SOB and tachycardia. Pt is currently intubated, sedated, and on vent. Pressor was off this AM. Visited pt in the room. Daughter presented on bedside to provide hx. Per daughter, pt has been eating/ drinking well DIRECTOR OF RESIDENCE LIFE. Daughter noticed some fluids gain in pt. Reported UBW ~132lbs. Communicated TF rec to SANDRO Rivas. Will continue to monitor and follow. Principal Problems/Diagnoses: 1. Dtyqg-dg-dxnwtgm respiratory failure. 2. Ebmzs-di-dxbzhbp systolic congestive heart failure. 3. Aspiration pneumonia with severe sepsis. 4. Atrial fibrillation. 5. Coagulopathy secondary to medications. 6. 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 7. Metabolic encephalopathy. PMH: hypertension, atrial fibrillation, diabetes, peripheral neuropathy, dementia GI: abd soft, round, distended, puffy, flatus present Skin: no wound pressure noted Labs: (07/09) Creatinine 1.17 H, Glucose 246 H (07/05) K 3.3 L, BUN 34 H, Creatinine 1.23 H, Ca 7.8 L Meds: insulin, colace, pepcid, lasix Ht: 62in Wt: 148lb - 07/05, 140lb 07/09 (possible fluid loss from lasix) BMI: 27.1kg/m2 IBW: 110lb Malnutrition Evaluation (07/05/18) The patient does not meet criteria for a specified degree of malnutrition at this time. Will re-evaluate at follow-up as appropriate. Nutrition Prescription (Diet Order): Glucerna 1.5 @40mL/hr off Estimated Nutritional Needs: Calories: 1200 1500kcal (20-25kcal/kg/d) Weight used: usual BW Protein: 78 120 g (1.3-2g/kg/d) Weight used: usual BW Diet Adequacy: Not meeting calorie needs, Not meeting protein needs TF was on hold. Diet Education Needs Assessment: Diet education not indicated. Nutrition Care Level: low Nutrition Diagnosis: None at this time. Goal: Patient will meet 75-100% of estimated needs by follow up Progress: N/A Interventions: Modified diet, commercial beverage (if needed), collaboration with other providers Monitoring/Evaluation: Total energy intake, Total protein intake, modified diet, supplements (if needed), Weight change Signed: Nola Cortez MS, RD, LD
[2018-07-09] MEDS: VANCOMYCIN 1GM/NS 250 ML 250 ML IV SCH (15:55)
[2018-07-09] MEDS: ACETAMINOPHEN 325 MG/10 ML UDC NG PRN (15:55)
--- NOTE | 2018-07-09 16:00 | NUR ---
restarted tube feeds post extubation
[2018-07-09] MEDS: WARFARIN SOD 2 MG TAB PO SCH (16:15)
[2018-07-09 16:16] LABS: ABG HCO3 25 mmol/L (23-28); ABG PCO2 37 mmHg (41-51); ABG PH 7.43 (7.31-7.41); ABG PO2 58 mmHg (80-105)
[2018-07-09] MEDS: CEFEPIME 1GM/NS 0.9% 50 ML 50 ML IV SCH (16:50)
[2018-07-09] MEDS: LORAZEPAM INJ 2 MG/ML VIAL IV PRN (17:24)
[2018-07-10] VITALS (27 sets, daily range): BP systolic 95–175; BP diastolic 48–106
[2018-07-10] MEDS: INSULIN REGULAR, HUMAN 100 UNIT/1 ML 3ML VIAL SQ SCH ×5 (00:17→23:48)
[2018-07-10] MEDS: DOXYCYCLINE 100MG/NS 100ML 100 ML IV SCH ×2 (03:16→14:57)
[2018-07-10 05:14] LABS: INR 1.08
[2018-07-10] MEDS: METOPROLOL TARTRATE INJ 1 MG/ML VIAL IV PRN (05:16)
[2018-07-10 05:25] LABS: ALBUMIN 2.6 g/dL (3.5-5.0); ALBUMIN/GLOBULIN RATIO 0.6 (0.8-2.0); ANION GAP 14.4 mmol/L (8-16); CALCIUM 9.5 mg/dL (8.4-10.2); CREATININE, SERUM 1.07 mg/dL (0.57-1.11); POTASSIUM 3.4 mmol/L (3.5-5.1)
--- NOTE | 2018-07-10 05:43 | Diagnostic Imaging Report ---
EXAM: XR CHEST 1 VIEW DATE: 07/10/2018 6:30 AM INDICATION: Mental status changes, respiratory failure COMPARISON: 07/09/2018, no report available FINDINGS: Lines and Tubes: NG tube with sideholes below GE junction and right IJ catheter tip overlying distal SVC. Extubation. Heart and Mediastinum: Enlarged. Lungs and Pleura: Moderate bilateral airspace opacities are present which could represent edema and/or pneumonia. Consolidation right lung base worsened. Bones and Soft Tissues: No acute findings. IMPRESSION: 1. Extubation. 2. Worsening edema and/or pneumonia. Signed by: Dr. Joey Nascimento MD on 07/10/2018 5:40 AM
[2018-07-10] MEDS ORDERED: DIGOXIN INJ 0.25 MG/ML 2 ML AMP IV ONE (06:00)
[2018-07-10 06:31] LABS: BASOPHILS % 0.2 % (0.0-1.0); EOSINOPHILS # (AUTO) 0.1 (0.0-0.4); EOSINOPHILS % 1.3 % (0.0-6.0); HEMATOCRIT 33.6 % (34.2-44.1); HEMOGLOBIN 10.8 g/dL (12.0-16.0); LYMPHOCYTES # (AUTO) 1.3 (1.0-3.2); LYMPHOCYTES % 14.3 % (18.0-39.1); MEAN CORPUSCULAR HEMOGLOBIN 28.4 pg (28-32); MEAN CORPUSCULAR HGB CONC 32.1 g/dL (31-35); MEAN CORPUSCULAR VOLUME 88.4 fL (81-99); MONOCYTES # (AUTO) 0.5 (0.2-0.8); MONOCYTES % 5.4 % (4.4-11.3); NEUTROPHILS # (AUTO) 7.1 (2.1-6.9); NEUTROPHILS % 78.4 % (38.7-80.0); PLATELET COUNT 193 x10e3/uL (140-360); RED CELL DISTRIBUTION WIDTH 15.6 % (11.7-14.4)
--- NOTE | 2018-07-10 07:37 | NUR ---
patient restless and agitated. tube feed turned off to prevent aspiration.
[2018-07-10] MEDS: FUROSEMIDE INJ 10 MG/ML 4 ML VIAL IV SCH ×2 (08:32→23:31)
[2018-07-10] MEDS: FAMOTIDINE 20 MG/2 ML VIAL IV SCH ×2 (08:32→21:41)
[2018-07-10] MEDS: DIGOXIN 0.125 MG TAB PO SCH (08:32)
[2018-07-10] MEDS: METOPROLOL TARTRATE 50 MG TAB PO SCH ×2 (08:32→21:42)
[2018-07-10] MEDS: DOCUSATE SODIUM LIQD 100 MG/10 ML UDC NG SCH (08:32)
[2018-07-10 09:49] LABS: ABG HCO3 28 mmol/L (23-28); ABG PCO2 30 mmHg (41-51); ABG PH 7.58 (7.31-7.41); ABG PO2 54 mmHg (80-105)
--- NOTE | 2018-07-10 10:49 | NUR ---
ST NOTE: Attempted BSE, pt currently on bipap and unable to come off for swallow evaluation. Will follow pt status and reattempt 07/11/18. Handoff to SANDRO Rivas
[2018-07-10] MEDS: VASOPRESSIN 100 UNIT in DEXTROSE 5% 100ML 100 ML IV SCH (13:12)
[2018-07-10] MEDS: PIPER-TAZ 3.375 GM 50 ML IV SCH ×2 (14:50→21:42)
[2018-07-10] MEDS: WARFARIN SOD 2 MG TAB PO SCH (17:14)
[2018-07-10] MEDS: POTASSIUM CHLORIDE 20 MEQ TAB CR PO SCH ×2 (21:41→23:31)
[2018-07-11] VITALS (24 sets, daily range): BP systolic 121–155; BP diastolic 50–99
[2018-07-11] MEDS ORDERED: POTASSIUM CHLORIDE 20 MEQ TAB CR PO ONE (01:15)
[2018-07-11] MEDS: POTASSIUM CHLORIDE 20 MEQ TAB CR PO SCH (01:19)
[2018-07-11] MEDS: DOXYCYCLINE 100MG/NS 100ML 100 ML IV SCH ×2 (03:25→15:04)
[2018-07-11 04:59] LABS: BASOPHILS % 0.3 % (0.0-1.0); EOSINOPHILS # (AUTO) 0.1 (0.0-0.4); HEMATOCRIT 30.4 % (34.2-44.1); HEMOGLOBIN 9.9 g/dL (12.0-16.0); LYMPHOCYTES # (AUTO) 1.3 (1.0-3.2); LYMPHOCYTES % 16.9 % (18.0-39.1); MEAN CORPUSCULAR HEMOGLOBIN 28.8 pg (28-32); MEAN CORPUSCULAR HGB CONC 32.6 g/dL (31-35); MEAN CORPUSCULAR VOLUME 88.4 fL (81-99); MONOCYTES # (AUTO) 0.5 (0.2-0.8); MONOCYTES % 6.2 % (4.4-11.3); NEUTROPHILS # (AUTO) 5.9 (2.1-6.9); NEUTROPHILS % 75.1 % (38.7-80.0); PLATELET COUNT 183 x10e3/uL (140-360); RED BLOOD COUNT 3.44 x10e6/uL (3.6-5.1); RED CELL DISTRIBUTION WIDTH 15.6 % (11.7-14.4)
[2018-07-11 05:11] LABS: INR 1.19; PROTHROMBIN TIME 16.1 seconds (11.9-14.5)
[2018-07-11] MEDS: FUROSEMIDE INJ 10 MG/ML 4 ML VIAL IV SCH ×3 (05:13→22:06)
[2018-07-11] MEDS: PIPER-TAZ 3.375 GM 50 ML IV SCH ×3 (05:14→22:06)
[2018-07-11 05:27] LABS: ALBUMIN 2.3 g/dL (3.5-5.0); ALBUMIN/GLOBULIN RATIO 0.6 (0.8-2.0); ANION GAP 14.9 mmol/L (8-16); CALCIUM 9.1 mg/dL (8.4-10.2); CREATININE, SERUM 1.28 mg/dL (0.57-1.11); POTASSIUM 3.9 mmol/L (3.5-5.1)
--- NOTE | 2018-07-11 06:08 | Diagnostic Imaging Report ---
EXAM: XR CHEST 1 VIEW DATE: 07/11/2018 6:30 AM INDICATION: Respiratory failure COMPARISON: 07/10/2018, no report available FINDINGS: Lines and Tubes: NG tube and right IJ catheter stable. Heart and Mediastinum: Enlarged. Lungs and Pleura: Moderate bilateral airspace opacities are present which could represent edema and/or pneumonia. Small effusions. Bones and Soft Tissues: No acute findings. IMPRESSION: 1. No significant interval change. Signed by: Dr. oJey Nascimento MD on 07/11/2018 6:04 AM
--- NOTE | 2018-07-11 07:00 | NUR ---
Restless patient with Bipap and tube feeding attempting to exit bed independently, 7 family members to beside. Patient repositioned to assist breathing and ensure lowest risk for aspiration. Teaching provided and family agreeable to decrease stimuli.
[2018-07-11] MEDS: INSULIN REGULAR, HUMAN 100 UNIT/1 ML 3ML VIAL SQ SCH ×4 (08:22→23:31)
[2018-07-11] MEDS: FAMOTIDINE 20 MG/2 ML VIAL IV SCH ×2 (08:41→20:51)
[2018-07-11] MEDS: DOCUSATE SODIUM LIQD 100 MG/10 ML UDC NG SCH (08:41)
[2018-07-11] MEDS: DIGOXIN 0.125 MG TAB PO SCH (08:43)
[2018-07-11] MEDS: METOPROLOL TARTRATE 50 MG TAB PO SCH ×2 (08:43→20:52)
--- NOTE | 2018-07-11 10:15 | NUR ---
ASSESSMENT: Spiritual concern Pt's daughters at bedside. Pt's daughters state plate maker visited earlier this week. Pt's daughter requested prayer. Intervention: Provided empathic listening and prayer. Outcome: Will continue to follow as able. VITOR JOHNSON [employer] Specialist Spiritual Care Department O: [phone] Pager: [phone] ([phone] number calling from)
--- NOTE | 2018-07-11 13:26 | NUR ---
Patient with moderate soft BM; bath and linen change provided.
--- NOTE | 2018-07-11 14:39 | NUR ---
Patient to side of bed with PT and RN assist. Unable to support trunk independently; stood with max asst.
[2018-07-11] MEDS: WARFARIN SOD 2 MG TAB PO SCH (17:08)
[2018-07-11] MEDS: RIVASTIGMINE TRANSDERMAL 9.5MG/24HOURS PATCH TD SCH (17:29)
[2018-07-11] MEDS: VASOPRESSIN 100 UNIT in DEXTROSE 5% 100ML 100 ML IV SCH (18:00)
--- NOTE | 2018-07-11 19:00 | NUR ---
Report received. Assumed care. Assessment one. See interventions. On Bipap with sats 100%. Nohemi Well. RIJ TLC saline locked. NGT with Glucerna 1.5 @ 40ml/hr. Scant residual.
[2018-07-12] VITALS (24 sets, daily range): BP systolic 114–160; BP diastolic 43–98
[2018-07-12] MEDS: ACETAMINOPHEN 325 MG/10 ML UDC NG PRN (01:38)
--- NOTE | 2018-07-12 01:43 | NUR ---
Medicated with Tylenol for generalized discomfort.
[2018-07-12] MEDS: DOXYCYCLINE 100MG/NS 100ML 100 ML IV SCH ×2 (03:12→15:30)
[2018-07-12 04:56] LABS: BASOPHILS % 0.4 % (0.0-1.0); EOSINOPHILS # (AUTO) 0.1 (0.0-0.4); EOSINOPHILS % 1.5 % (0.0-6.0); HEMATOCRIT 32.5 % (34.2-44.1); LYMPHOCYTES # (AUTO) 1.1 (1.0-3.2); LYMPHOCYTES % 13.2 % (18.0-39.1); MEAN CORPUSCULAR HEMOGLOBIN 27.9 pg (28-32); MEAN CORPUSCULAR HGB CONC 30.8 g/dL (31-35); MEAN CORPUSCULAR VOLUME 90.5 fL (81-99); MONOCYTES # (AUTO) 0.5 (0.2-0.8); MONOCYTES % 6.3 % (4.4-11.3); NEUTROPHILS # (AUTO) 6.3 (2.1-6.9); NEUTROPHILS % 78.1 % (38.7-80.0); PLATELET COUNT 224 x10e3/uL (140-360); RED BLOOD COUNT 3.59 x10e6/uL (3.6-5.1); RED CELL DISTRIBUTION WIDTH 15.5 % (11.7-14.4)
[2018-07-12 05:22] LABS: ALBUMIN 2.7 g/dL (3.5-5.0); ALBUMIN/GLOBULIN RATIO 0.7 (0.8-2.0); ANION GAP 15.3 mmol/L (8-16); CALCIUM 9.3 mg/dL (8.4-10.2); CREATININE, SERUM 1.43 mg/dL (0.57-1.11); POTASSIUM 3.3 mmol/L (3.5-5.1)
[2018-07-12] MEDS: PIPER-TAZ 3.375 GM 50 ML IV SCH ×3 (05:35→20:40)
[2018-07-12] MEDS: FUROSEMIDE INJ 10 MG/ML 4 ML VIAL IV SCH (05:35)
[2018-07-12] MEDS: INSULIN REGULAR, HUMAN 100 UNIT/1 ML 3ML VIAL SQ SCH ×3 (05:44→17:43)
[2018-07-12] MEDS ORDERED: INSULIN DETEMIR 100 UNIT/ML PEN SQ ONE ×2 (06:00→06:30)
--- NOTE | 2018-07-12 06:00 | NUR ---
BS 436. Call to Dr. Ortiz. Wolfgang Ovalle NP non destructive testing inspector. Advised of BS. Orders given.
[2018-07-12] MEDS ORDERED: INSULIN GLARGINE 100 UNITS/ML ML SC ONE (06:03)
--- NOTE | 2018-07-12 06:09 | Diagnostic Imaging Report ---
EXAM: XR CHEST 1 VIEW DATE: 07/12/2018 6:30 AM INDICATION: Edema COMPARISON: 07/11/2018, no report available FINDINGS: Lines and Tubes: Stable Heart and Mediastinum: Enlarged Lungs and Pleura: Moderate bilateral airspace opacities are present which could represent edema and/or pneumonia. Small effusions. Bones and Soft Tissues: No acute findings. IMPRESSION: 1. No significant interval change. Signed by: Dr. Joey Nascimento MD on 07/12/2018 6:06 AM
--- NOTE | 2018-07-12 06:11 | NUR ---
Lantus 15 units given.
[2018-07-12] MEDS ORDERED: INSULIN GLARGINE 100 UNITS/ML ML SC NR (06:30)
[2018-07-12] MEDS ORDERED: POTASSIUM CHLORIDE 20 MEQ TAB CR PO SCH (09:00)
[2018-07-12] MEDS: DIGOXIN 0.125 MG TAB PO SCH ×2 (09:10→11:12)
[2018-07-12] MEDS: DOCUSATE SODIUM LIQD 100 MG/10 ML UDC NG SCH (09:10)
[2018-07-12] MEDS: FAMOTIDINE 20 MG/2 ML VIAL IV SCH ×2 (09:10→20:40)
[2018-07-12] MEDS: POTASSIUM CHLORIDE 20MEQ/15ML UDC NG SCH ×2 (09:10→17:00)
[2018-07-12] MEDS: METOPROLOL TARTRATE 50 MG TAB PO SCH ×2 (09:11→20:20)
[2018-07-12] MEDS: RIVASTIGMINE TRANSDERMAL 9.5MG/24HOURS PATCH TD SCH (09:11)
--- NOTE | 2018-07-12 09:39 | NUR ---
Family at bedside. Central line dressing changed, CHG bath, linens and gown changed, hair shampooed. No residuals from tube feeding. Patient sitting up in bed with no concerns presently on 5L High flow NC.
--- NOTE | 2018-07-12 14:41 | Diagnostic Imaging Report ---
EXAM: Modified barium swallow with Speech Pathologist INDICATION: ^Aspiration Pneumonia ^[id number] ^1130 COMPARISON: None available. FINDINGS: See impression IMPRESSION: Trace silent penetration with thin liquids. Trace silent aspiration with thin liquids. Refer to speech pathology report for further details and recommendations. Signed by: Dr. Moncho Harman M.D. on 07/12/2018 2:38 PM
--- NOTE | 2018-07-12 15:39 | NUR ---
Patient noted to have continued pink urine intermittently with movement. Jinny Smith TITLE I INSTRUCTIONAL ASSISTANT with Dr Ortiz made aware. Per request, paged Dr Salinas to inquire if okay to hold one dose coumadin. Awaiting call back.
--- NOTE | 2018-07-12 16:03 | NUR ---
ORDER RECEIVED FOR LTAC USED CULTURAL LINK LINE; RADHA Mario [id number] / ANGLESMITH HELPER MET W DAUGHTER EMILY Valadez FROM [facility]. AND PT. EXPLAINED THE PURPOSE OF THE VISIT. STATES HER SISTER EMILY YADAV WILL BE BACK IN THE AM AND WILL SIGN. SHE WAS AWARE OF [facility] REFERRAL, BUT PREFERRED THE OTHER SISTER SIGN ALL PAPERWORK. WILL F/U IN AM.
[2018-07-12] MEDS: WARFARIN SOD 2 MG TAB PO SCH (17:00)
--- NOTE | 2018-07-12 17:30 | NUR ---
Per Dr Rama Urbina, place PICC line and then discontinue CVL. Okay for patient to transfer out of ICU from his standpoint.
--- NOTE | 2018-07-12 17:44 | NUR ---
Per yudi Frances to hold one dose of coumadin.
[2018-07-12] MEDS: VASOPRESSIN 100 UNIT in DEXTROSE 5% 100ML 100 ML IV SCH (18:00)
--- NOTE | 2018-07-12 18:07 | Diagnostic Imaging Report ---
Exam: KUB. Clinical History: NG tube placement Comparison: July 07, 2018 Findings: Frontal view of the abdomen demonstrates a nonobstructive bowel gas pattern with copious retained stool and contrast material. There are no suspicious calcifications.No acute bone abnormality. Impression: Findings which could be due to constipation. Likely an enteric tube catheter looped in the distal esophagus. Signed by: Dr. Florentino Wilder M.D. on 07/12/2018 6:03 PM
--- NOTE | 2018-07-12 18:58 | NUR ---
Bedside report given to SANDRO Haro.
--- NOTE | 2018-07-12 19:53 | Diagnostic Imaging Report ---
Exam: KUB. Clinical History: NG tube placement Comparison: July 12, 2018 from earlier the same day Findings: Frontal view of the abdomen demonstrates a nonobstructive bowel gas pattern with copious retained stool and contrast material. There are no suspicious calcifications.No acute bone abnormality. Impression: Findings which could be due to constipation. Likely an enteric tube catheter looped in the distal esophagus. This projects more superiorly when compared with the prior exam. Signed by: Dr. Florentino Wilder M.D. on 07/12/2018 7:50 PM
[2018-07-12] MEDS: METOPROLOL TARTRATE INJ 1 MG/ML VIAL IV PRN (20:41)
[2018-07-13] VITALS (22 sets, daily range): BP systolic 122–165; BP diastolic 54–91
[2018-07-13] MEDS: DOXYCYCLINE 100MG/NS 100ML 100 ML IV SCH ×2 (03:30→14:58)
[2018-07-13 04:55] LABS: BASOPHILS % 0.3 % (0.0-1.0); EOSINOPHILS # (AUTO) 0.1 (0.0-0.4); EOSINOPHILS % 1.5 % (0.0-6.0); HEMATOCRIT 37.1 % (34.2-44.1); HEMOGLOBIN 11.8 g/dL (12.0-16.0); LYMPHOCYTES # (AUTO) 1.4 (1.0-3.2); MEAN CORPUSCULAR HEMOGLOBIN 28.3 pg (28-32); MEAN CORPUSCULAR HGB CONC 31.8 g/dL (31-35); MONOCYTES # (AUTO) 0.4 (0.2-0.8); MONOCYTES % 4.8 % (4.4-11.3); NEUTROPHILS # (AUTO) 6.8 (2.1-6.9); NEUTROPHILS % 76.9 % (38.7-80.0); PLATELET COUNT 269 x10e3/uL (140-360); RED BLOOD COUNT 4.17 x10e6/uL (3.6-5.1); RED CELL DISTRIBUTION WIDTH 15.8 % (11.7-14.4)
[2018-07-13 05:13] LABS: ANION GAP 16.9 mmol/L (8-16); CALCIUM 9.5 mg/dL (8.4-10.2); CREATININE, SERUM 1.18 mg/dL (0.57-1.11); MAGNESIUM 1.9 MG/DL (1.3-2.1)
[2018-07-13 05:16] LABS: POTASSIUM 2.9 mmol/L (3.5-5.1)
[2018-07-13] MEDS: INSULIN REGULAR, HUMAN 100 UNIT/1 ML 3ML VIAL SQ SCH ×4 (05:29→17:26)
[2018-07-13] MEDS ORDERED: POTASSIUM CHLORIDE 20MEQ/15ML UDC NG ONE ×2 (05:45)
--- NOTE | 2018-07-13 06:11 | Diagnostic Imaging Report ---
EXAM: ABDOMEN-1VIEW (KUB) DATE: 07/13/2018 5:49 AM INDICATION: NG tube placement COMPARISON: 07/12/2018 FINDINGS: NG tube present with side holes below GE junction. Oral contrast within the colon. IMPRESSION: As above. Signed by: Dr. Joey Nascimento MD on 07/13/2018 6:08 AM
[2018-07-13] MEDS: PIPER-TAZ 3.375 GM 50 ML IV SCH ×3 (06:30→21:18)
--- NOTE | 2018-07-13 07:00 | NUR ---
BEDSIDE REPORT RECVD. ASSESMENT COMPLETED AND RECORDED. VSS AND RECORDED. DENIES PAIN. FAMILY AT BEDSIDE. THEY VERBALIZE UNDERSTANDING AND CONSENT TO CURRENT POC.
[2018-07-13] MEDS: POTASSIUM CHLORIDE 20MEQ/15ML UDC NG SCH ×2 (08:42→17:22)
[2018-07-13] MEDS: DOCUSATE SODIUM LIQD 100 MG/10 ML UDC NG SCH (08:42)
[2018-07-13] MEDS: FAMOTIDINE 20 MG/2 ML VIAL IV SCH ×2 (08:42→21:18)
[2018-07-13] MEDS: METOPROLOL TARTRATE 50 MG TAB PO SCH ×2 (08:43→21:18)
[2018-07-13] MEDS: RIVASTIGMINE TRANSDERMAL 9.5MG/24HOURS PATCH TD SCH (08:43)
[2018-07-13] MEDS ORDERED: FUROSEMIDE INJ 10 MG/ML 4 ML VIAL IV SCH (09:00)
--- NOTE | 2018-07-13 10:30 | NUR ---
PT AMBULATES WITH PT, SITTING IN CHAIR. TOLERATING WELL
--- NOTE | 2018-07-13 11:20 | NUR ---
SPEECH THERAPY WORKING WITH PT AT THIS TIME. PT PARTICIPATING AND TOLERATES FAIR.
--- NOTE | 2018-07-13 11:52 | NUR ---
MET W 2 OTHER SISTER AT THE BEDSIDE. ST WAS PRESENT. SISTER; RIAN, PLACED A CALL TO EMILY. DISCUSSED TAE EVAL. EMILY WAS CONCERNED ABOUT IF FAMILY COULD STAY WITH THE PT. INFORMED THE FAMILY TO DISCUSS [place] [facility]. AGREED. CONSENT WAS GIVEN TO INITIATE LTAC EVAL. FAMILY CHOSE [facility]. CHOICE LETTER WAS SIGNED. COPY TO CHART AND TO FAMILY. CANDELARIA WAS NOTIFIED EMILY WOULD ARRIVE BY 2PM.
[2018-07-13] MEDS ORDERED: INSULIN REGULAR, HUMAN 100 UNIT/1 ML 3ML VIAL SQ ONE (12:15)
[2018-07-13] MEDS: DIGOXIN 0.125 MG TAB PO SCH (12:28)
[2018-07-13] MEDS: INSULIN GLARGINE 100 UNITS/ML ML SQ SCH ×2 (12:31→22:30)
[2018-07-13 12:49] LABS: INR 1.05; PROTHROMBIN TIME 14.6 seconds (11.9-14.5)
--- NOTE | 2018-07-13 15:02 | NUR ---
Nutrition Intervention Note RD Recommendation(s) for Physician: - Rec continuous TF of Glucerna 1.5 @45mL/hr, providing 1620kcal, 89g protein and 820mL H2O. - Rec 150mL water flushes; additional per MD discretion - Monitor daily labs, gastric tolerance and weight Plan of Care: RD following, monitoring for tolerance and adequacy Nutrition reason for involvement: Follow up RD Assessment 07/13 Pt was discussed during AM rounds. MBS showed silent aspiration with thin liquid. DIRECT CARE PROVIDER was working with pt this AM. Spoke with ADITYA Sims regarding pts plan of care. DIRECT CARE PROVIDER rec for short term TF through NGT prior to PO. SANDRO Larose called regarding diarrhea while on TF. Last gastric tolerance check was ~10mL. Diarrhea was most likely due to side effects of meds, lasix and colace as pt has been tolerating Glucerna 1.5 well for the past couple days. RD rec to continue current TF at goal. Will continue to monitor and follow. 07/09 Chart reviewed. Pt was extubated this afternoon. TF was off prior to extubation. Pending bedside swallow evaluation. Currently on insulin, colace, pepcid, lasix, and abx. Will continue to monitor and follow. 07/05- Chart reviewed. 88yo F, who is admitted for SOB and tachycardia. Pt is currently intubated, sedated, and on vent. Pressor was off this AM. Visited pt in the room. Daughter presented on bedside to provide hx. 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 Daughter noticed some fluids gain in pt. Reported UBW ~132lbs. Communicated TF rec to SANDRO Rivas. Will continue to monitor and follow. Principal Problems/Diagnoses: 1. Kpugk-ay-zgdqixo respiratory failure. 2. Pxkuc-nk-fyssnsr systolic congestive heart failure. 3. Aspiration pneumonia with severe sepsis. 4. Atrial fibrillation. 5. Coagulopathy secondary to medications. 6. 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 7. Metabolic encephalopathy. PMH: hypertension, atrial fibrillation, diabetes, peripheral neuropathy, dementia GI: abdomen soft, non-tender, round, flatus present, NGT present Skin: no wound pressure noted Labs: (07/13) Na 147 H, K 2.9 L, BUN 27 H, Creatinine 1.18 H, Glucose 235 H (07/09) Creatinine 1.17 H, Glucose 246 H (07/05) K 3.3 L, BUN 34 H, Creatinine 1.23 H, Ca 7.8 L Meds: insulin, lasix, KCl, colace, pepcid, abx Ht: 62in Wt: 148lb - 07/05, 140lb 07/09 (possible fluid loss from lasix) BMI: 27.1kg/m2 IBW: 110lb Malnutrition Evaluation (07/05/18) The patient does not meet criteria for a specified degree of malnutrition at this time. Will re-evaluate at follow-up as appropriate. Nutrition Prescription (Diet Order): Glucerna 1.5 @40mL/hr Estimated Nutritional Needs: Calories: 1500-2100kcal (25-35kcal/kg/d) Weight used: usual BW Protein: 60-90g (1-1.5g/kg/d) Weight used: usual BW Diet Adequacy: meeting calorie needs, meeting protein needs Diet Education Needs Assessment: Diet education not indicated. Nutrition Care Level: low Nutrition Diagnosis: None at this time. Goal: Patient will meet 75-100% of estimated needs by follow up Progress: Goal met Interventions: Formula, rate, composition Monitoring/Evaluation: Total energy intake, Total protein intake, formula, Weight change Signed: Nola Cortez, MS, RD, LD
--- NOTE | 2018-07-13 16:25 | NUR ---
dr gutierrez making rounds, updated family on current status and poc. states ok for pt to transfer to [facility] with tele.
--- NOTE | 2018-07-13 16:29 | NUR ---
called lillie swain, ok for pt to go to [facility]
[2018-07-13] MEDS: WARFARIN SOD 2 MG TAB PO SCH (17:22)
--- NOTE | 2018-07-13 20:00 | NUR ---
Jinny Smith SITE DIRECTOR notified of high RR in 30s, SOB and intermittent wheezing, and O2 sat 98% on RA. Received order for neb txs.
--- NOTE | 2018-07-13 20:06 | NUR ---
Spoke with Dr Rama Urbina and received orders to discontinue bi-pap and okay for patient to transfer to [facility]. Unable to discontinue order in system
--- NOTE | 2018-07-13 22:00 | NUR ---
Patient's family adjusted bed to flat position. Pt is on TF through NGT. Educated family on importance of keeping HOB elevated 45 degrees to prevent aspiration. Family verbalized understanding.
--- NOTE | 2018-07-13 22:37 | Diagnostic Imaging Report ---
EXAM: CHEST XRAY LINE PLACEMENT DATE: 07/13/2018 9:39 PM INDICATION: Line placement COMPARISON: None FINDINGS: Underpenetration and portable technique limits evaluation. NG tube courses below GE junction. Right IJ catheter tip distal SVC. Right PICC distal SVC. Heart moderately enlarged with moderate edema and small effusions. IMPRESSION: As above. Signed by: Dr. Joey Nascimento MD on 07/13/2018 10:34 PM
[2018-07-14] VITALS (9 sets, daily range): BP systolic 120–160; BP diastolic 62–98
[2018-07-14] MEDS: INSULIN REGULAR, HUMAN 100 UNIT/1 ML 3ML VIAL SQ SCH ×4 (00:30→18:20)
[2018-07-14] MEDS: DOXYCYCLINE 100MG/NS 100ML 100 ML IV SCH ×2 (03:11→17:05)
[2018-07-14 04:30] LABS: BASOPHILS % 0.2 % (0.0-1.0); EOSINOPHILS # (AUTO) 0.1 (0.0-0.4); EOSINOPHILS % 1.3 % (0.0-6.0); HEMATOCRIT 37.1 % (34.2-44.1); HEMOGLOBIN 11.4 g/dL (12.0-16.0); LYMPHOCYTES # (AUTO) 1.4 (1.0-3.2); LYMPHOCYTES % 14.4 % (18.0-39.1); MEAN CORPUSCULAR HEMOGLOBIN 28.3 pg (28-32); MEAN CORPUSCULAR HGB CONC 30.7 g/dL (31-35); MEAN CORPUSCULAR VOLUME 92.1 fL (81-99); MONOCYTES # (AUTO) 0.5 (0.2-0.8); MONOCYTES % 4.7 % (4.4-11.3); NEUTROPHILS # (AUTO) 7.5 (2.1-6.9); PLATELET COUNT 300 x10e3/uL (140-360); RED BLOOD COUNT 4.03 x10e6/uL (3.6-5.1); RED CELL DISTRIBUTION WIDTH 15.8 % (11.7-14.4)
[2018-07-14 04:51] LABS: ALBUMIN/GLOBULIN RATIO 0.8 (0.8-2.0); ANION GAP 16.6 mmol/L (8-16); CALCIUM 9.5 mg/dL (8.4-10.2); CREATININE, SERUM 1.45 mg/dL (0.57-1.11); POTASSIUM 3.6 mmol/L (3.5-5.1)
[2018-07-14 04:57] LABS: INR 1.12; PROTHROMBIN TIME 15.4 seconds (11.9-14.5)
--- NOTE | 2018-07-14 06:02 | Diagnostic Imaging Report ---
EXAM: XR CHEST 1 VIEW DATE: 07/14/2018 7:00 AM INDICATION: CHF COMPARISON: Previous day, no report available FINDINGS: Lines and Tubes: Stable Heart and Mediastinum: Enlarged Lungs and Pleura: Moderate edema with small effusions. Superimposed pneumonia possible. Prominent pulmonary arteries. Bones and Soft Tissues: No acute findings. IMPRESSION: 1. No significant change. Signed by: Dr. Joey Nascimento MD on 07/14/2018 5:59 AM
[2018-07-14] MEDS: PIPER-TAZ 3.375 GM 50 ML IV SCH ×3 (06:20→22:56)
[2018-07-14] MEDS: POTASSIUM CHLORIDE 20MEQ/15ML UDC NG SCH (08:26)
[2018-07-14] MEDS: FAMOTIDINE 20 MG/2 ML VIAL IV SCH ×2 (08:26→21:00)
[2018-07-14] MEDS: FUROSEMIDE INJ 10 MG/ML 4 ML VIAL IV SCH (08:26)
[2018-07-14] MEDS: METOPROLOL TARTRATE 50 MG TAB PO SCH ×2 (08:26→21:00)
[2018-07-14] MEDS: RIVASTIGMINE TRANSDERMAL 9.5MG/24HOURS PATCH TD SCH (08:27)
[2018-07-14] MEDS: INSULIN GLARGINE 100 UNITS/ML ML SQ SCH ×3 (08:29→21:00)
--- NOTE | 2018-07-14 11:30 | NUR ---
pt to transfer to [facility] 285, report called, pt transferred via bed, family at bedside
--- NOTE | 2018-07-14 11:53 | NUR ---
PATIENT ARRIVED TO ROOM 285. SHE IS IN STABLE CONDITION. FAMILY ORIENTED TO ROOM AND POLICIES. CALL LIGHT WITHIN REACH. BED IN THE LOWEST POSITION.
[2018-07-14] MEDS ORDERED: SODIUM CHLORIDE 0.9% 250ML 250 ML ONE (12:42)
[2018-07-14] MEDS: WARFARIN SOD 2 MG TAB PO SCH (16:30)
--- NOTE | 2018-07-14 18:26 | NUR ---
TUBE PLACEMENT AND RESIDUAL ASSESSED AT THIS TIME. NO RESIDUAL NOTED.
--- NOTE | 2018-07-14 19:31 | NUR ---
REPORT GIVEN TO ONCOMING NURSE. PATIENT IS RESTING IN BED. NO ACUTE DISTRESS NOTED. DAUGHTER AT BEDSIDE. CALL LIGHT WITHIN REACH. BED IN THE LOWEST POSITION.
[2018-07-15] VITALS (9 sets, daily range): BP systolic 140–170; BP diastolic 66–88
[2018-07-15 03:55] LABS: BASOPHILS % 0.4 % (0.0-1.0); EOSINOPHILS # (AUTO) 0.1 (0.0-0.4); EOSINOPHILS % 0.9 % (0.0-6.0); HEMATOCRIT 39.1 % (34.2-44.1); HEMOGLOBIN 11.9 g/dL (12.0-16.0); LYMPHOCYTES # (AUTO) 1.5 (1.0-3.2); MEAN CORPUSCULAR HEMOGLOBIN 27.9 pg (28-32); MEAN CORPUSCULAR HGB CONC 30.4 g/dL (31-35); MEAN CORPUSCULAR VOLUME 91.8 fL (81-99); MONOCYTES # (AUTO) 0.4 (0.2-0.8); MONOCYTES % 4.1 % (4.4-11.3); NEUTROPHILS # (AUTO) 8.6 (2.1-6.9); NEUTROPHILS % 79.9 % (38.7-80.0); PLATELET COUNT 325 x10e3/uL (140-360); RED BLOOD COUNT 4.26 x10e6/uL (3.6-5.1)
[2018-07-15] MEDS: DOXYCYCLINE 100MG/NS 100ML 100 ML IV SCH ×2 (04:15→16:15)
[2018-07-15 04:20] LABS: ANION GAP 16.4 mmol/L (8-16); CALCIUM 9.2 mg/dL (8.4-10.2); CREATININE, SERUM 1.54 mg/dL (0.57-1.11); MAGNESIUM 2.5 MG/DL (1.3-2.1); POTASSIUM 3.4 mmol/L (3.5-5.1)
--- NOTE | 2018-07-15 04:25 | NUR ---
Received patient, laying in bed with HOB slightly elevated. Family member at the bedside. No acute distress noted. No sxs of pain at this time. Bed at low position and locked. Bed alarm on. Call light within reach. Will continue to monitor.
[2018-07-15] MEDS: INSULIN REGULAR, HUMAN 100 UNIT/1 ML 3ML VIAL SQ SCH ×2 (06:00)
[2018-07-15] MEDS: PIPER-TAZ 3.375 GM 50 ML IV SCH ×3 (06:00→22:06)
--- NOTE | 2018-07-15 07:04 | NUR ---
RECEIVED PATIENT RESTING IN BED WITH EYES CLOSED. RESPIRATIONS EVEN AND UNLABORED. NO ACUTE DISTRESS NOTED. HOB ELEVATED. NG TUBE IN PLACE. DAUGHTER AT BEDSIDE. CALL LIGHT WITHIN REACH. BED IN THE LOWEST POSITION. BED ALARM ON.
[2018-07-15] MEDS: RIVASTIGMINE TRANSDERMAL 9.5MG/24HOURS PATCH TD SCH (08:31)
[2018-07-15] MEDS: FAMOTIDINE 20 MG/2 ML VIAL IV SCH ×2 (08:32→21:29)
[2018-07-15] MEDS: ACETAMINOPHEN 325 MG/10 ML UDC NG PRN (08:32)
[2018-07-15] MEDS: METOPROLOL TARTRATE 50 MG TAB PO SCH ×2 (08:32→22:06)
[2018-07-15] MEDS: FUROSEMIDE INJ 10 MG/ML 4 ML VIAL IV SCH (08:32)
--- NOTE | 2018-07-15 08:32 | NUR ---
ASSESSED PATIENT'S TUNE PLACEMENT AND RESIDUAL, NO RESIDUAL NOTED AT THIS TIME. PATIENT TOLERATING FEEDING. ORAL CARE PROVIDED.
[2018-07-15] MEDS: INSULIN GLARGINE 100 UNITS/ML ML SQ SCH ×2 (08:35→21:00)
[2018-07-15] MEDS ORDERED: DEXTROSE 5% 1,000 ML IV ONE (10:30)
[2018-07-15] MEDS ORDERED: POTASSIUM CHLORIDE 20MEQ/15ML UDC NG NR (10:30)
--- NOTE | 2018-07-15 10:30 | NUR ---
DR. SOTO ALSO NOTIFIED OF PATIENT SPIKING A TEMPERATURE AND THE VS FOR THIS AM. WILL ORDER BLOOD CULTURES.
--- NOTE | 2018-07-15 10:30 | NUR ---
DR. SOTO IN TO SEE PATIENT. HE WAS NOTIFIED OF LAB RESULTS OF SODIUM 154, AND OF POTASSIUM 3.4. HE WILL PUT NEW ORDERS IN.
--- NOTE | 2018-07-15 10:50 | NUR ---
ASSESSED PATIENT'S TUBE PLACEMENT AND RESIDUAL, NO RESIDUAL NOTED AT THIS TIME.
--- NOTE | 2018-07-15 11:27 | Progress Note ---
DATE: July 15, 2018 PULMONARY/CRITICAL CARE PROGRESS NOTE SUBJECTIVE: The patient had a fever to 100.4 this morning. She is slightly less alert than yesterday. Her sodium is increased to 154. PHYSICAL EXAMINATION VITAL SIGNS: The blood pressure is 170/81 and the saturation is 96% on 3 liters. The pulse is 82 and the temperature was 100.4. HEENT: Shows no facial swelling or erythema. The patient has a nasogastric tube in place. The oropharynx is normal. LYMPHATIC: Shows no submandibular, cervical, or supraclavicular adenopathy. The right IJ line has been removed. There is a new PICC line in the right arm. CARDIAC: Reveals regular rate and rhythm with normal S1 and S2. LUNGS: Auscultation of the lungs shows decreased breath sounds at the bases. There is no wheezing. ABDOMEN: Soft and nontender. There is no rebound or guarding. EXTREMITIES: Show no leg edema or calf tenderness. There is no cyanosis or clubbing. SKIN: Shows no rashes. LABORATORY DATA: Sodium is 154 and potassium is 3.4. The BUN to creatinine ratio is 39 to 1.54. The blood sugars are 311 to 380. IMPRESSION 1. Hypernatremia. 2. New fever. 3. Aspiration pneumonia with severe sepsis, present on admission. 4. Qnasu-rq-cptxjfv systolic heart failure. 5. Atrial fibrillation. 6. Acute kidney injury. PLAN 1. Reculture patient and send stool for C. diff. 2. Continue antibiotics and discuss with ID. 3. Increase free water through feeding tube and intravenously. 4. Increase insulin because of hyperglycemia. 5. Monitor BUN, creatinine, and electrolytes. 6. Case discussed with nursing and family. Job#: [id number] NAY
[2018-07-15] MEDS: INSULIN LISPRO 100 UNIT/1 ML 3ML VIAL SQ SCH ×3 (12:11→21:00)
--- NOTE | 2018-07-15 14:15 | NUR ---
ASSESSED PATIENT'S TUBE PLACEMENT AND RESIDUAL, NONE NOTED.
--- NOTE | 2018-07-15 17:47 | NUR ---
REPORT GIVEN TO ONCOMING NURSE. PATIENT RESTING IN BED. HOB ELEVATED. NO ACUTE DISTRESS NOTED. FAMILY AT BEDSIDE. CALL LIGHT WITHIN REACH. BED IN THE LOWEST POSITION.
[2018-07-15] MEDS: WARFARIN SOD 2 MG TAB PO SCH (17:55)
--- NOTE | 2018-07-15 17:55 | NUR ---
ASSESSED PATIENT'S TUBE PLACEMENT AND RESIDUAL, NONE NOTED AT THIS TIME. Addendum: 07/15/18 at 2020 by JUAN DE JESUS RN WRONG TIME. CORRECT TIME 1946.
--- NOTE | 2018-07-15 19:50 | NUR ---
RECEIVED PT IN BED AOX1 .GLUCERNA 1.5 AT 40CC/HR IS RUNNING .TELE SHOWS AFIB .NO ACUTE DISTRESS NOTED .FAMILY AT THE BEDSIDE
[2018-07-16] VITALS (7 sets, daily range): BP systolic 146–164; BP diastolic 67–85
[2018-07-16] MEDS: ACETAMINOPHEN 325 MG/10 ML UDC NG PRN (02:09)
[2018-07-16] MEDS: DOXYCYCLINE 100MG/NS 100ML 100 ML IV SCH ×2 (04:57→17:34)
[2018-07-16] MEDS: PIPER-TAZ 3.375 GM 50 ML IV SCH ×3 (06:00→21:10)
[2018-07-16 06:17] LABS: BASOPHILS % 0.3 % (0.0-1.0); EOSINOPHILS # (AUTO) 0.3 (0.0-0.4); EOSINOPHILS % 1.9 % (0.0-6.0); HEMATOCRIT 39.4 % (34.2-44.1); HEMOGLOBIN 11.8 g/dL (12.0-16.0); LYMPHOCYTES # (AUTO) 2.2 (1.0-3.2); LYMPHOCYTES % 16.6 % (18.0-39.1); MEAN CORPUSCULAR HEMOGLOBIN 28.4 pg (28-32); MEAN CORPUSCULAR HGB CONC 29.9 g/dL (31-35); MEAN CORPUSCULAR VOLUME 94.7 fL (81-99); MONOCYTES # (AUTO) 0.6 (0.2-0.8); MONOCYTES % 4.1 % (4.4-11.3); NEUTROPHILS # (AUTO) 10.1 (2.1-6.9); NEUTROPHILS % 76.3 % (38.7-80.0); PLATELET COUNT 305 x10e3/uL (140-360); RED BLOOD COUNT 4.16 x10e6/uL (3.6-5.1); RED CELL DISTRIBUTION WIDTH 15.9 % (11.7-14.4)
[2018-07-16 06:26] LABS: INR 1.06; PROTHROMBIN TIME 14.8 seconds (11.9-14.5)
[2018-07-16 06:37] LABS: ALBUMIN 2.8 g/dL (3.5-5.0); ALBUMIN/GLOBULIN RATIO 0.7 (0.8-2.0); ANION GAP 16.2 mmol/L (8-16); CALCIUM 8.5 mg/dL (8.4-10.2); CREATININE, SERUM 1.48 mg/dL (0.57-1.11); POTASSIUM 3.2 mmol/L (3.5-5.1)
--- NOTE | 2018-07-16 07:25 | NUR ---
PT RESTING .PT DENIES PAIN GLUCERNA 1.5 IS RUNNING AT 40CC/HR .FAMILY AT THE BEDSIDE .REPORT GIVEN TO THE ONCOMING NURSE
[2018-07-16] MEDS: FAMOTIDINE 20 MG/2 ML VIAL IV SCH ×2 (08:55→21:06)
[2018-07-16] MEDS: POTASSIUM CHLORIDE 20 MEQ TAB CR PO SCH (08:55)
[2018-07-16] MEDS: METOPROLOL TARTRATE 50 MG TAB PO SCH ×2 (08:56→21:07)
[2018-07-16] MEDS: INSULIN GLARGINE 100 UNITS/ML ML SQ SCH ×2 (08:56→21:10)
[2018-07-16] MEDS: INSULIN LISPRO 100 UNIT/1 ML 3ML VIAL SQ SCH ×4 (09:13→21:00)
[2018-07-16] MEDS ORDERED: POTASSIUM CHLORIDE 20MEQ/15ML UDC NG ONE (09:25)
[2018-07-16] MEDS: RIVASTIGMINE TRANSDERMAL 9.5MG/24HOURS PATCH TD SCH (10:00)
[2018-07-16] MEDS: DIGOXIN 0.125 MG TAB PO SCH (11:00)
--- NOTE | 2018-07-16 13:00 | NUR ---
Chase catheter discontinued per physician orders. Pt is due to void at 1900.
[2018-07-16] MEDS ORDERED: DEXTROSE 5% 500 ML IV ONE (14:45)
[2018-07-16] MEDS: WARFARIN SOD 2 MG TAB PO SCH (17:50)
--- NOTE | 2018-07-16 19:30 | NUR ---
RECEIVED PT IN BED AOX1 DENIES PAIN NG TUBE IN PLACE INFUSING GLUCERNA 1.5 AT 40CC/HR PT TOLERATING THE FEEDING AND MEDS .FAMILY AT THE BEDSIDE .REMEDIOS LIGHT WITH IN REACH CONTINUE TO MONITOR
[2018-07-17] VITALS (8 sets, daily range): BP systolic 128–166; BP diastolic 72–86
[2018-07-17] MEDS: ACETAMINOPHEN 325 MG/10 ML UDC NG PRN (03:40)
[2018-07-17] MEDS: DOXYCYCLINE 100MG/NS 100ML 100 ML IV SCH ×2 (04:15→16:46)
[2018-07-17] MEDS: PIPER-TAZ 3.375 GM 50 ML IV SCH (06:00)
[2018-07-17 06:44] LABS: BASOPHILS % 0.3 % (0.0-1.0); EOSINOPHILS # (AUTO) 0.4 (0.0-0.4); EOSINOPHILS % 3.7 % (0.0-6.0); HEMATOCRIT 38.7 % (34.2-44.1); HEMOGLOBIN 11.9 g/dL (12.0-16.0); MEAN CORPUSCULAR HEMOGLOBIN 28.5 pg (28-32); MEAN CORPUSCULAR HGB CONC 30.7 g/dL (31-35); MEAN CORPUSCULAR VOLUME 92.6 fL (81-99); MONOCYTES # (AUTO) 0.5 (0.2-0.8); MONOCYTES % 4.1 % (4.4-11.3); NEUTROPHILS # (AUTO) 8.6 (2.1-6.9); PLATELET COUNT 284 x10e3/uL (140-360); RED BLOOD COUNT 4.18 x10e6/uL (3.6-5.1); RED CELL DISTRIBUTION WIDTH 15.7 % (11.7-14.4)
--- NOTE | 2018-07-17 06:52 | NUR ---
PT RESTED DURING THE NIGHT OFF AND ON .GLUCERNA 1.5 IS RUNNING AT 40CC/HR .FAMILY ATTHE BEDSIDE .CALL LIGHT WIT IN REACH .REPORT GIVEN TO THE ONCOMING NURSE
--- NOTE | 2018-07-17 07:00 | NUR ---
RECEIVED PATIENT RESTING IN BED. SHE'S AAOX1, DAUGHTER AT BEDSIDE. NO ACUTE DISTRESS NOTED. CALL LIGHT WITHIN REACH. BED IN THE LOWEST POSITION. BED ALARM ON.
[2018-07-17 07:06] LABS: MAGNESIUM 2.4 MG/DL (1.3-2.1); PHOSPHORUS 2.9 MG/DL (2.3-4.7)
[2018-07-17 07:08] LABS: ALBUMIN 2.7 g/dL (3.5-5.0); ALBUMIN/GLOBULIN RATIO 0.7 (0.8-2.0); ANION GAP 13.2 mmol/L (8-16); CALCIUM 8.5 mg/dL (8.4-10.2); CREATININE, SERUM 1.17 mg/dL (0.57-1.11); POTASSIUM 3.2 mmol/L (3.5-5.1)
[2018-07-17] MEDS: INSULIN LISPRO 100 UNIT/1 ML 3ML VIAL SQ SCH ×4 (07:30→21:00)
[2018-07-17] MEDS: INSULIN GLARGINE 100 UNITS/ML ML SQ SCH ×2 (09:00→21:00)
[2018-07-17] MEDS ORDERED: POTASSIUM CHLORIDE 20MEQ/15ML UDC NG ONE (09:30)
[2018-07-17] MEDS: RIVASTIGMINE TRANSDERMAL 9.5MG/24HOURS PATCH TD SCH (09:40)
[2018-07-17] MEDS: LACTOBACILLUS ACIDOPHILUS CAPSULE PO SCH ×2 (09:40→17:08)
[2018-07-17] MEDS: FAMOTIDINE 20 MG/2 ML VIAL IV SCH ×2 (09:40→22:01)
[2018-07-17] MEDS: POTASSIUM CHLORIDE 20 MEQ TAB CR PO SCH (09:40)
[2018-07-17] MEDS: METOPROLOL TARTRATE 50 MG TAB PO SCH ×2 (09:40→22:02)
--- NOTE | 2018-07-17 09:50 | NUR ---
NG TUBE CLOGGED, REPLACED TO RIGHT NARE. WILL ORDER KUB FOR PLACEMENT.
--- NOTE | 2018-07-17 12:40 | NUR ---
KUB DONE, TUBE IN CORRECT PLACEMENT.
--- NOTE | 2018-07-17 12:44 | Diagnostic Imaging Report ---
Exam: Abdominal film Clinical History: NG tube placement Comparison: KUB 07/13/2018 DISCUSSION: Interval replacement or repositioning of nasogastric tube. The tip now projects to the right of midline over the expected region of the gastric antrum/pylorus. The bowel gas pattern is nonobstructive though the left abdomen is incompletely imaged. No allen pneumoperitoneum. Enteric contrast material opacifies the distal large bowel. Regional skeletal structures are grossly intact. IMPRESSION: Nasogastric tube tip projects over the expected region of the gastric antrum/pylorus. Signed by: Dr. Moncho Harman M.D. on 07/17/2018 12:41 PM
[2018-07-17] MEDS: DIGOXIN 0.125 MG TAB PO SCH (13:06)
--- NOTE | 2018-07-17 13:06 | NUR ---
ASSESSED TUBE FOR PLACEMENT AND RESIDUAL, NO RESIDUAL NOTED AT THIS TIME.
[2018-07-17 16:49] LABS: INR 1.05; PROTHROMBIN TIME 14.6 seconds (11.9-14.5)
[2018-07-17] MEDS: WARFARIN SOD 2 MG TAB PO SCH (17:08)
--- NOTE | 2018-07-17 17:08 | NUR ---
ASSESSED NGT PLACEMENT AND RESIDUAL, NONE NOTED AT THIS TIME.
--- NOTE | 2018-07-17 17:35 | Progress Note ---
DATE: July 17, 2018 PULMONARY CRITICAL CARE PROGRESS NOTE The patient had some mild confusion earlier today. She is not running a fever. She is not complaining of dyspnea or cough. She has no abdominal pain. PHYSICAL EXAMINATION VITALS: The blood pressure 128/74 and the saturation is 100% on 3 L. HEENT: Shows no facial swelling or erythema. CARDIAC: Reveals a regular rate and rhythm with a normal S1 and S2. There are no murmurs or rubs. LUNGS: Auscultation of the lungs reveals clear breath sounds bilaterally. There is no wheezing. ABDOMEN: Soft and nontender. There is no rebound or guarding. EXTREMITIES: Shows no leg edema or calf tenderness. There is no cyanosis or clubbing. SKIN: Shows no rashes. LABORATORY DATA: Sodium is improved to 148. BUN to creatinine ratio is 30 to 1.15. Blood sugar has improved to 200 to 250. IMPRESSION 1. Aspiration pneumonia with severe sepsis, present on admission. 2. Fdgza-ok-wqsiklu systolic congestive heart failure. 3. Hypernatremia. 4. Atrial fibrillation. 5. Acute kidney injury. 6. Metabolic encephalopathy. PLAN 1. Patient will continue to receive antibiotics. 2. Repeat chest x-ray tomorrow. 3. Continue free water to correct hypernatremia. 4. Continue to adjust insulin. 5. Physical therapy. Job#: [id number] RADHA
--- NOTE | 2018-07-17 19:15 | NUR ---
REPORT GIVEN TO ONCOMING NURSE, PATIENT IS RESTING IN BED. NO ACUTE DISTRESS NOTED. DAUGHTERS AT BEDSIDE. CALL LIGHT WITHIN REACH. BED IN THE LOWEST POSITION.
--- NOTE | 2018-07-17 19:21 | NUR ---
CALLED DR. XAVIER TO NOTIFY THAT ZOSYN Q8H HAS REACHED THE STOP DATE AND SEE IF HE WANTS TO CONTINUE MEDICATION, NO ANSWER, LVM.
--- NOTE | 2018-07-17 20:00 | NUR ---
The patient is laying in bed, HOB elevated, at low position and wheels are locked. She is AAOx1, responds to her name and some questions but is confused. She is trying to get out of her bed and has to be constantly re-oriented. Oxygen is at 2L via NC. Lung sounds are clear. Telemetry in place Afib@110. NG on Right Nare running Glucerna @40mls/hr and 40cc water flushes/hr. I added a Brady valve to the NG. NG placement and residual checked. 10mls of feeds obtained. Bowel sounds are active and stomach is soft. SCDs functioning appropriately. Family at bedside. Patient will be NPO at midnight for a barium swallow study in the morning. I verified with Radiology and they said to turn off feeds at midnight as well.
[2018-07-17] MEDS ORDERED: ZOLPIDEM TARTRATE 5 MG TAB PO SCH (21:00)
[2018-07-18] VITALS (8 sets, daily range): BP systolic 120–177; BP diastolic 70–86
[2018-07-18] MEDS: DOXYCYCLINE 100MG/NS 100ML 100 ML IV SCH ×2 (03:35→16:28)
[2018-07-18 06:15] LABS: BASOPHILS % 0.4 % (0.0-1.0); EOSINOPHILS # (AUTO) 0.5 (0.0-0.4); EOSINOPHILS % 4.6 % (0.0-6.0); HEMATOCRIT 38.5 % (34.2-44.1); LYMPHOCYTES # (AUTO) 2.2 (1.0-3.2); LYMPHOCYTES % 22.9 % (18.0-39.1); MEAN CORPUSCULAR HEMOGLOBIN 28.4 pg (28-32); MEAN CORPUSCULAR HGB CONC 31.2 g/dL (31-35); MONOCYTES # (AUTO) 0.5 (0.2-0.8); MONOCYTES % 4.9 % (4.4-11.3); NEUTROPHILS # (AUTO) 6.4 (2.1-6.9); NEUTROPHILS % 66.2 % (38.7-80.0); PLATELET COUNT 277 x10e3/uL (140-360); RED BLOOD COUNT 4.23 x10e6/uL (3.6-5.1); RED CELL DISTRIBUTION WIDTH 15.6 % (11.7-14.4)
[2018-07-18 06:29] LABS: INR 1.03; PROTHROMBIN TIME 14.4 seconds (11.9-14.5)
[2018-07-18 06:47] LABS: ALBUMIN 2.7 g/dL (3.5-5.0); ALBUMIN/GLOBULIN RATIO 0.8 (0.8-2.0); ANION GAP 11.4 mmol/L (8-16); CALCIUM 8.8 mg/dL (8.4-10.2); CREATININE, SERUM 0.97 mg/dL (0.57-1.11); POTASSIUM 3.4 mmol/L (3.5-5.1)
--- NOTE | 2018-07-18 07:00 | NUR ---
DAUGHTER AT BEDSIDE, CALL LIGHT WITHIN REACH. BED IN THE LOWEST POSITION.
--- NOTE | 2018-07-18 07:00 | NUR ---
RECEIVED PATIENT RESTING IN BED. NO ACUTE DISTRESS NOTED. HOB ELEVATED. FAMILY AT BEDSIDE. FEEDING DISCONNECTED PER NIGHT NURSE DUE TO PATIENT HAVING MBS.
[2018-07-18] MEDS: INSULIN LISPRO 100 UNIT/1 ML 3ML VIAL SQ SCH ×4 (07:30→21:46)
--- NOTE | 2018-07-18 08:00 | NUR ---
CALLED RADIOLOGY TO FIND OUT IF PATIENT HAS TO BE OFF OF FEEDINGS DUE TO MBS, PER ORDERING BOX OPERATOR PATIENT CAN HAVE FEEDINGS. ASSESSED TUBE PLACEMENT AND RESIDUAL, NO RESIDUAL NOTED. FEEDING CONNECTED.
[2018-07-18] MEDS ORDERED: HYDRALAZINE HCL 20 MG/ML VIAL IV PRN (08:15)
[2018-07-18] MEDS ORDERED: POTASSIUM CHLORIDE 20MEQ/15ML UDC NG ONE (08:30)
[2018-07-18] MEDS: METOPROLOL TARTRATE 50 MG TAB PO SCH ×2 (09:42→21:48)
[2018-07-18] MEDS: LACTOBACILLUS ACIDOPHILUS CAPSULE PO SCH ×2 (09:42→16:28)
[2018-07-18] MEDS: FAMOTIDINE 20 MG/2 ML VIAL IV SCH ×2 (09:42→21:48)
[2018-07-18] MEDS: POTASSIUM CHLORIDE 20MEQ/15ML UDC NG SCH (09:42)
[2018-07-18] MEDS: RIVASTIGMINE TRANSDERMAL 9.5MG/24HOURS PATCH TD SCH (09:42)
[2018-07-18] MEDS: INSULIN GLARGINE 100 UNITS/ML ML SQ SCH ×2 (09:43→21:47)
[2018-07-18] MEDS: DIGOXIN 0.125 MG TAB PO SCH (11:30)
--- NOTE | 2018-07-18 12:15 | NUR ---
ASSESSED PATIENT'S TUBE PLACEMENT AND RESIDUAL. NONE NOTED AT THIS TIME.
--- NOTE | 2018-07-18 12:22 | NUR ---
WOUND CARE - PUP SCREEN Julian Score 11 Alternating Pressure Air Mattress in Place Strict PUP Active - Patient sitting at bedside with family member next to her. - Steady while sitting up - Sammarinese Speaking - No moisture concerns - Shear friction is a problem - generalized weakness - NGT in place. Dietitian following patient - Diapered Skin Check Performed: - No Pressure Ulcers Identified. Recommendation: Continue Strict PUP Continue Alternating Pressure Air Mattress Bilateral Heel Protectors While In Bed Chair Cushion When out of Bed. Turn and Reposition q2h. Addendum: 07/18/18 at 1228 by Mil Singh RN Amended: Links added.
--- NOTE | 2018-07-18 13:44 | NUR ---
CHOICE LETTER SIGNED AND FILED IN CHART WITH POST DISCHARGE STATUS FORM. PT FAMILY REQUESTING [facility], FAXED CLINICALS. PASRR COMPLETED FILED IN CHART. RTF COMPLETED WAITING ON ROOM NUMBER FOR COMPLETION OF TRANSFER.
--- NOTE | 2018-07-18 14:19 | Progress Note ---
DATE: July 18, 2018 SUBJECTIVE: Patient did not sleep well last night despite Ambien. She still has some confusion. She is receiving enteral feedings. OBJECTIVE VITAL SIGNS: The patient is afebrile. She has a blood pressure of 138/86. Heart rate is 93. Saturation is 95%. HEENT: No facial swelling or erythema. Nasal mucosa is normal. She has a nasogastric tube in place. The oropharynx is normal. LYMPHATIC: No submandibular, cervical or supraclavicular adenopathy. CARDIAC: Regular rate and rhythm with normal S1 and S2. LUNGS: Auscultation of the lungs reveals decreased breath sounds at the bases. There is no wheezing. ABDOMEN: Soft, nontender. There is no rebound or guarding. EXTREMITIES: No leg edema or calf tenderness. RADIOGRAPHIC DATA: Abdominal x-rays show the nasogastric tube in good position. IMPRESSION 1. Metabolic encephalopathy. 2. Aspiration pneumonia with severe sepsis present on admission. 3. Aytdy-oi-tqiaqmf systolic heart failure. 4. Hypernatremia. 5. Acute kidney injury. 6. Atrial fibrillation. PLAN 1. Patient is scheduled for PA and lateral chest x-ray today. 2. Repeat swallowing study today. 3. Continue free water and enteral feedings. 4. ID has stopped the Zosyn, but we will continue the doxycycline for now. 5. Physical therapy. Job#: [id number]
--- NOTE | 2018-07-18 15:01 | Diagnostic Imaging Report ---
EXAMINATION: PA and lateral views of the chest. COMPARISON: July 14, 2017 CLINICAL HISTORY: Pneumonia DISCUSSION: Lines/tubes: Right PICC line with tip overlying the superior vena cava. Right IJ catheter removed. Enteric tube with tip overlying the left upper quadrant. Lungs: Pulmonary edema. Pleura: Probable small effusions. Heart and mediastinum: Heart is enlarged. Bones and soft tissues: No acute bony abnormalities. Contrast within the stomach. IMPRESSION: Interstitial pulmonary edema No new airspace consolidation. Signed by: Dr. Phu Sierra M.D. on 07/18/2018 2:57 PM
--- NOTE | 2018-07-18 15:19 | NUR ---
Nutrition Intervention Note (Follow up) RD Recommendation(s) for Physician: - Continue current TF order - Monitor daily labs, gastric tolerance and weight Plan of Care: RD following, monitoring for tolerance and adequacy Nutrition reason for involvement: Follow up RD Assessment 07/18 - Pt was discussed during rounds. Pending placement. Per RN Darek, current TF has been tolerating well without any gastric residual. K was repleted. Pt has had diarrhea; probiotics have been ordered. Visited pt in the room. TF running at goal. No complains of nausea or vomiting. Will continue to monitor and follow. 07/13 Pt was discussed during AM rounds. MBS showed silent aspiration with thin liquid. LEAD MATERIAL HANDLER was working with pt this AM. Spoke with LEAD MATERIAL HANDLER Bethany regarding pts plan of care. LEAD MATERIAL HANDLER rec for short term TF through NGT prior to PO. SANDRO Larose called regarding diarrhea while on TF. Last gastric tolerance check was ~10mL. Diarrhea was most likely due to side effects of meds, lasix and colace as pt has been tolerating Glucerna 1.5 well for the past couple days. RD rec to continue current TF at goal. Will continue to monitor and follow. 07/09 Chart reviewed. Pt was extubated this afternoon. TF was off prior to extubation. Pending bedside swallow evaluation. Currently on insulin, colace, pepcid, lasix, and abx. Will continue to monitor and follow. 07/05- Chart reviewed. 88yo F, who is admitted for SOB and tachycardia. Pt is currently intubated, sedated, and on vent. Pressor was off this AM. Visited pt in the room. Daughter presented on bedside to provide hx. 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 Daughter noticed some fluids gain in pt. Reported UBW ~132lbs. Communicated TF rec to SANDRO Rivas. Will continue to monitor and follow. Principal Problems/Diagnoses: 1. Dwqvj-to-lahjrmr respiratory failure. 2. Ldexk-ke-dugkkrk systolic congestive heart failure. 3. Aspiration pneumonia with severe sepsis. 4. Atrial fibrillation. 5. Coagulopathy secondary to medications. 6. 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 7. Metabolic encephalopathy. PMH: hypertension, atrial fibrillation, diabetes, peripheral neuropathy, dementia GI: abdomen soft, non-tender, round, flatus present, NGT present Skin: no wound pressure noted Labs: (07/18) Na 147 H, K 3.4 L, glucose 160H (07/13) Na 147 H, K 2.9 L, BUN 27 H, Creatinine 1.18 H, Glucose 235 H (07/09) Creatinine 1.17 H, Glucose 246 H (07/05) K 3.3 L, BUN 34 H, Creatinine 1.23 H, Ca 7.8 L Meds: insulin, KCl, probiotic, pepcid Ht: 62in Wt: 148lb - 07/05, 140lb 07/09 (possible fluid loss from lasix) BMI: 27.1kg/m2 IBW: 110lb Malnutrition Evaluation (07/05/18) The patient does not meet criteria for a specified degree of malnutrition at this time. Will re-evaluate at follow-up as appropriate. Nutrition Prescription (Diet Order): Glucerna 1.5 @40mL/hr Estimated Nutritional Needs: Calories: 1500-2100kcal (25-35kcal/kg/d) Weight used: usual BW Protein: 60-90g (1-1.5g/kg/d) Weight used: usual BW Diet Adequacy: meeting calorie needs, meeting protein needs Diet Education Needs Assessment: Diet education not indicated. Nutrition Care Level: low Nutrition Diagnosis: None at this time. Goal: Patient will meet 75-100% of estimated needs by follow up Progress: Goal met Interventions: Formula, rate, composition Monitoring/Evaluation: Total energy intake, Total protein intake, formula, Weight change Signed: Nola Cortez MS, RD, LD
--- NOTE | 2018-07-18 15:49 | NUR ---
CM SPOKE TO PATIENT (YAKUT SPEAKING) AND PATIENT DAUGHTER AT BEDSIDE REGARDING IMM LETTER WITH INTERPRETING QUICK ACCESS LINE. PATIENT DAUGHTER ECUADOREAN SPEAKING. IMM LETTER GIVEN IN YAKUT WITH EXPLANATION. ORIGINAL SIGNED AND PLACED IN CHART; COPY OF ORIGINAL DOCUMENT GIVEN TO PATIENT AT BEDSIDE AND PLACED IN CARE TRANSITION FOLDER. CM CONTACT INFORMATION GIVEN TO PATIENT FOR ANY NEEDS OR CONCERNS. PATIENT WITH NO FURTHER QUESTIONS.
--- NOTE | 2018-07-18 15:58 | NUR ---
SPOKE TO DR. OSWALD OF RECOMMENDATIONS OF PUREED DIET WITH NECTAR THICK LIQUIDS AFTER MBS COMPLETED TODAY. PER DR. OSWALD PULL OUT NG TUBE AND START HER ON RECOMMENDED FEEDINGS.
--- NOTE | 2018-07-18 16:07 | NUR ---
NG TUBE PULLED OUT AT THIS TIME, PATIENT TOLERATED IT WELL.
[2018-07-18] MEDS: WARFARIN SOD 2 MG TAB PO SCH (16:28)
--- NOTE | 2018-07-18 19:05 | NUR ---
REPORT GIVEN TO ONCOMING NURSE. PATIENT RESTING IN BED. NO ACUTE DISTRESS NOTED. DAUGHTERS AT BEDSIDE. CALL LIGHT WITHIN REACH. BED IN THE LOWEST POSITION. BED ALARM ON.
--- NOTE | 2018-07-18 19:56 | NUR ---
RECEIVED PT IN BED AOX3 .PT RESTING .NO ACUTE DISTRESS NOTED .FAMILY AT THE BEDSIDE CALL LIGHT WITH IN REACH .CONTINUE TO MONITOR
[2018-07-18] MEDS ORDERED: QUETIAPINE FUMARATE 25 MG TAB PO SCH (21:00)
[2018-07-19] VITALS (8 sets, daily range): BP systolic 107–179; BP diastolic 59–91
[2018-07-19] MEDS: DOXYCYCLINE 100MG/NS 100ML 100 ML IV SCH (05:52)
--- NOTE | 2018-07-19 06:03 | NUR ---
PT RESTED DURING THE NIGHT .DENIES PAIN .CALL LIGHT WITH IN EACH .CONTINUE 5TO MONITOR
[2018-07-19 06:05] LABS: BASOPHILS % 0.5 % (0.0-1.0); EOSINOPHILS # (AUTO) 0.4 (0.0-0.4); EOSINOPHILS % 4.2 % (0.0-6.0); HEMATOCRIT 38.5 % (34.2-44.1); HEMOGLOBIN 11.6 g/dL (12.0-16.0); LYMPHOCYTES # (AUTO) 2.3 (1.0-3.2); LYMPHOCYTES % 27.7 % (18.0-39.1); MEAN CORPUSCULAR HEMOGLOBIN 27.5 pg (28-32); MEAN CORPUSCULAR HGB CONC 30.1 g/dL (31-35); MEAN CORPUSCULAR VOLUME 91.2 fL (81-99); MONOCYTES # (AUTO) 0.5 (0.2-0.8); NEUTROPHILS # (AUTO) 5.1 (2.1-6.9); NEUTROPHILS % 60.9 % (38.7-80.0); PLATELET COUNT 267 x10e3/uL (140-360); RED BLOOD COUNT 4.22 x10e6/uL (3.6-5.1); RED CELL DISTRIBUTION WIDTH 15.4 % (11.7-14.4)
[2018-07-19 06:32] LABS: ALBUMIN 2.8 g/dL (3.5-5.0); ALBUMIN/GLOBULIN RATIO 0.8 (0.8-2.0); ANION GAP 13.6 mmol/L (8-16); CALCIUM 8.9 mg/dL (8.4-10.2); CREATININE, SERUM 1.02 mg/dL (0.57-1.11); POTASSIUM 3.6 mmol/L (3.5-5.1)
[2018-07-19] MEDS: INSULIN LISPRO 100 UNIT/1 ML 3ML VIAL SQ SCH ×3 (07:30→17:06)
[2018-07-19 08:13] LABS: EOSINOPHILS % (MANUAL) 3 % (0-7); LYMPHOCYTES % (MANUAL) 26 % (19-48); MONOCYTES % (MANUAL) 6 % (3.4-9.0); NEUTROPHILS % (MANUAL) 65 % (40-74)
[2018-07-19 08:14] LABS: PLATELET ESTIMATE ADEQUATE; PLATELET MORPHOLOGY COMMENT NORMAL; RBC MORPHOLOGY COMMENT NORMAL
[2018-07-19] MEDS ORDERED: DEXTROSE 5% 1,000 ML IV ONE (08:15)
[2018-07-19 08:21] LABS: INR 1.03; PROTHROMBIN TIME 14.4 seconds (11.9-14.5)
--- NOTE | 2018-07-19 08:25 | NUR ---
GOING TO ROOM [address] OSWALD AT [place] [id number] [facility] [address] [address]. CALL REPORT TO [phone]. PT READY FOR TRANSFER PER CM SIDE.
--- NOTE | 2018-07-19 08:43 | Progress Note ---
DATE: July 19, 2018 PULMONARY CRITICAL CARE PROGRESS NOTE The feeding tube was removed yesterday. She received Seroquel at night and slept a little better, but still has some confusion this morning. PHYSICAL EXAMINATION VITALS: The patient is afebrile. The saturation is 97% on 3 L. The blood pressure is 134/91 and the pulse is 89. HEENT: Shows no facial swelling or erythema. The nasal mucosa is normal. The oropharynx is normal. LYMPHATIC: Shows no submandibular, cervical or suprapubic adenopathy. CARDIAC: Reveals a regular rate and rhythm with a normal S1 and S2. There are no murmurs or rubs. LUNGS: Auscultation of the lungs reveals decreased breath sounds at the bases. There is no wheezing. ABDOMEN: Soft and nontender. There is no rebound or guarding. EXTREMITIES: There is no leg edema or calf tenderness. There is no cyanosis or clubbing. SKIN: Shows no rashes. LABORATORY DATA: White blood cell count is 8.3 and hemoglobin is 11.7. Platelet count is 267,000. Sodium is 148 and the BUN to creatinine ratio is 24 to 1. Other electrolytes are within normal limits. RADIOGRAPHIC DATA: Chest x-ray still shows some interstitial pulmonary edema. IMPRESSION 1. Metabolic encephalopathy. 2. Aspiration pneumonia with severe sepsis, present on admission. 3. Pvdnt-bz-zkroacf systolic heart failure. 4. Hyponatremia. 5. Acute kidney injury. PLAN 1. Patient will receive a small amount of free water intravenously today. 2. Advanced enteral feedings as tolerated. 3. Physical therapy. 4. Disposition. 5. Case discussed with family and nursing. Job#: [id number] ND
[2018-07-19] MEDS: FAMOTIDINE 20 MG/2 ML VIAL IV SCH (09:04)
[2018-07-19] MEDS: POTASSIUM CHLORIDE 20MEQ/15ML UDC NG SCH (09:04)
[2018-07-19] MEDS: RIVASTIGMINE TRANSDERMAL 9.5MG/24HOURS PATCH TD SCH (09:05)
[2018-07-19] MEDS: LACTOBACILLUS ACIDOPHILUS CAPSULE PO SCH ×2 (09:05→16:48)
[2018-07-19] MEDS: METOPROLOL TARTRATE 50 MG TAB PO SCH (09:05)
[2018-07-19] MEDS: INSULIN GLARGINE 100 UNITS/ML ML SQ SCH (09:12)
--- NOTE | 2018-07-19 09:35 | NUR ---
SPIRITUAL CARE - Spiritual concern Assessment: Pt sleeping soundly with pt's daughter and student nurse at bedside. Pt's daughter requested prayer. Intervention: Provided pastoral presence and prayer from Scientologist tradition. Outcome: Pt's daughter expressed appreciation for visit. VITOR JOHNSON Substation Electrician Supervisor Spiritual Care Department O: [phone] Pager: [phone] ([phone] number calling from)
--- NOTE | 2018-07-19 09:49 | NUR ---
Constitutional:Patient alert and responsive, admitted Resp failure and Aspiration PNA, presents weak and tired,, BP elevated and on O2 3L HENT: Normocephalic, atraumatic, MMM, throat clear Eye: Anicteric Resp: LS diminished, shallow respirations Cardiac: Normal S1, S2, no M/R/G GI: BS positive all quads, ASNTND Skin: Warm, moist, Extremities: Positive pulses in all Plan On O2 NC 3L, RR16, no distress, Cardiac: on Tele monitoring, cleared per cardiac for discharge Speech eval and treat, in to see patient to NMS exercises, on [place] liquids and Puree diet, Hypernatremia: D5 running at this time, 500cc total PT involved and will see patient today SUPPLY SERVICE WORKER attending contacted and will see patient Cardiac:Hypertensive, PRN hydralazine given IV, will monitor, on coumadin, INR monitoring Call light within reach for safety, repositioning in bed, repositioning, incontinence care provided, HOB elevated 45 degrees for p.o intake.
[2018-07-19] MEDS: DIGOXIN 0.125 MG TAB PO SCH (11:12)
[2018-07-19] MEDS ORDERED: AMLODIPINE BESYLATE 5 MG TAB PO SCH (11:45)
--- NOTE | 2018-07-19 14:00 | NUR ---
Patient seen by USABILITY ENGINEER attending, ordered Stat BMP and for recheck of Na post D5 IV 500cc, results pending and will discharge patient based on results of labs. Rounds by ID earlier this morning and notes to D/C abx, remove PICC prior to discharge to SNF and will effect. PT ambulated with patient, sitting up on chair at this time and will monitor, appetite improved, ate 70% of meal
[2018-07-19] MEDS ORDERED: Lactobacillus Acidophilus PO (14:31)
[2018-07-19] MEDS ORDERED: SEROQUEL25 MG PO (14:31)
[2018-07-19] MEDS ORDERED: Insulin Lispro SQ (14:31)
[2018-07-19] MEDS ORDERED: COUMADIN2 MG PO (14:31)
[2018-07-19] MEDS ORDERED: Insulin Glargine SQ (14:31)
[2018-07-19] MEDS ORDERED: DIGOXIN125 MCG PO (14:31)
[2018-07-19 15:18] LABS: ANION GAP 14.5 mmol/L (8-16); CALCIUM 8.6 mg/dL (8.4-10.2); CREATININE, SERUM 1.17 mg/dL (0.57-1.11); POTASSIUM 3.5 mmol/L (3.5-5.1)
[2018-07-19] MEDS: WARFARIN SOD 2 MG TAB PO SCH (16:48)
--- NOTE | 2018-07-19 17:15 | NUR ---
Called gave report to CASEY Varela at [facility] and ambulance being called at this time
--- NOTE | 2018-07-19 19:15 | NUR ---
Report given to on coming nurse and notified to d/c picc line prior to transfer per orders, moss picker ride running late .
--- NOTE | 2018-07-19 19:49 | NUR ---
RECEIVED PT IN BED AOX1 NO ACUTE DISTRESS NOTED .PT IS GOING TO DISCHARGE TO [facility] .REPORT GIVEN BY ONGOING NURSE .
--- NOTE | 2018-07-19 21:59 | Discharge Summary ---
ADMISSION DIAGNOSES 1. Acute hypoxic respiratory failure. 2. Cardiogenic shock. 3. Possible pneumonia. 4. Chronic atrial fibrillation. 5. Type 2 diabetes. 6. Acute kidney injury versus chronic kidney disease state 3. DISCHARGE DIAGNOSES 1. Acute hypoxic respiratory failure. 2. Cardiogenic shock. 3. Possible pneumonia. 4. Chronic atrial fibrillation. 5. Type 2 diabetes. 6. Acute kidney injury versus chronic kidney disease state 3. 7. Atrial fibrillation with rapid ventricular rate. 8. Aspiration pneumonia. 9. Rule out bacteremia. HISTORY: The patient has a history of hypertension, type 2 diabetes, chronic AFib, dementia. SURGICAL HISTORY: Cholecystectomy. HOSPITAL COURSE: An 88-year-old female who lives at home with home health, presents in acute respiratory failure and hypoxia with O2 saturations in the 80s. She failed BiPAP and was intubated in the ER. Chest x-ray on admission showed interstitial and alveolar opacities likely related to edema. Echo showed EF of 45% to 50% with LVH. EKG on admission showed AFib with RVR, rate of 107 and 124. The patient was started on Lasix and beta taina per cardiology. Infectious disease was consulted for the pneumonia. The patient was started on doxy. Home meds for dementia were restarted. Per speech therapy evaluation, the patient showed signs of aspiration, so NG tube was placed and the patient worked with speech therapy and had to improve her swallow. On the day of transfer to [facility], the patient is tolerating p.o. diet. Vital signs are stable. The patient is afebrile. The patient completed IV antibiotics. She will discharge to [facility] with home medicines and a new prescription for digoxin, long acting insulin 30 q.12, high dose sliding scale insulin a.c. and nightly, lactobacillus, Seroquel 25 p.o. nightly and Coumadin 2 mg daily. The patient had a bronch with negative workup. Urine culture is negative. Blood culture is negative. C. diff for stool is negative. The patient is discharged to [facility] for more physical therapy. The patient and family understand discharge instructions and agree to plan. Vital signs stable. The patient is afebrile. Dictated by: Jinny Smith NP. SEVERINO OSWALD MD Job#: [id number] GE
--- NOTE | 2018-07-19 22:37 | NUR ---
PT IS DISCHARGED TO [facility] .PICC LINE REMOVED AT 2030 . .NO DISTRESS OR BLEEDING NOTED .EMS HAS TAKEN THE PT
== END 2018-07-19 20:58 | DRG 853 ==
LOC: ER 13:50 → ERHOLD 16:47 → ICU 18:55 → MED/SURG3 07-14 11:58
PROVIDERS: ADMIT Internal Medicine; ATTEND Internal Medicine
PROC: 5A1955Z Respiratory Ventilation, Greater than 96 Consecutive Hours (ICD-10-PCS; 2018-07-04)
PROC: 0BH17EZ Insertion of Endotracheal Airway into Trachea, Via Natural or Artificial Opening (ICD-10-PCS; 2018-07-04)
PROC: 02HV33Z Insertion of Infusion Device into Superior Vena Cava, Percutaneous Approach (ICD-10-PCS; 2018-07-04)
PROC: 0BH18EZ Insertion of Endotracheal Airway into Trachea, Via Natural or Artificial Opening Endoscopic (ICD-10-PCS; principal; 2018-07-13)
PROC: 0B9K8ZZ Drainage of Right Lung, Via Natural or Artificial Opening Endoscopic (ICD-10-PCS; 2018-07-13)
PROC: 02HV33Z Insertion of Infusion Device into Superior Vena Cava, Percutaneous Approach (ICD-10-PCS; 2018-07-13)
DX: A41.9 Sepsis, unspecified organism (principal); J96.01 Acute respiratory failure with hypoxia; R57.0 Cardiogenic shock; J69.0 Pneumonitis due to inhalation of food and vomit; G93.41 Metabolic encephalopathy; I50.23 Acute on chronic systolic (congestive) heart failure; N17.9 Acute kidney failure, unspecified; D68.32 Hemorrhagic disorder due to extrinsic circulating anticoagulants; I13.0 Hypertensive heart and chronic kidney disease with heart failure and stage 1 through stage 4 chronic kidney disease, or unspecified chronic kidney disease; R65.20 Severe sepsis without septic shock; I48.2 Chronic atrial fibrillation; Z79.01 Long term (current) use of anticoagulants; J70.9 Respiratory conditions due to unspecified external agent; E11.22 Type 2 diabetes mellitus with diabetic chronic kidney disease; E11.42 Type 2 diabetes mellitus with diabetic polyneuropathy; F03.90 Unspecified dementia, unspecified severity, without behavioral disturbance, psychotic disturbance, mood disturbance, and anxiety; F09 Unspecified mental disorder due to known physiological condition; T45.515A Adverse effect of anticoagulants, initial encounter; N18.3 Chronic kidney disease, stage 3 (moderate); Z79.4 Long term (current) use of insulin; E87.6 Hypokalemia; E86.0 Dehydration
CPT/HCPCS: 36415; 36569; 36600; 71045; 71046; 74018; 74230; 76604; 80048; 80053; 80162; 80202; 81001; 82550; 82553; 82805; 82948; 83605; 83690; 83735; 83880; 84100; 84443; 84484; 85025; 85610; 85730; 87040; 87070; 87071; 87075; 87081; 87086; 87102; 87110; 87116; 87205; 87206; 87400; 87449; 87493; 93005; 93306; 94002; 94003; 94660; 94667; 94668; 96365; 96372; 97139; 99285; J0330; J0360; J0692; J1160; J1815; J1940; J1956; J2060; J2250; J2405; J2543; J3370; J3475; J3480; J7030; J7050; J7070; J7799

== ENCOUNTER 2018-07-25 18:38 | Inpatient (IN) | payer MEDICARE, OTHER ==
[~2018-07-25] VITALS: Ht 160 cm; Wt 57.7 kg
--- NOTE | 2018-07-25 06:55 | NUR ---
Patient condition throughout the night was stable, Report given to day nurse for continuity of care.
[~2018-07-25 18:38] MED LIST changes: +COUMADIN2 MG PO; +DIGOXIN125 MCG PO; +Insulin Glargine SQ; +Insulin Lispro SQ; +Lactobacillus Acidophilus PO; +SEROQUEL25 MG PO
[2018-07-25 19:16] LABS: BASOPHILS % 0.2 % (0.0-1.0); EOSINOPHILS # (AUTO) 0.1 (0.0-0.4); EOSINOPHILS % 0.5 % (0.0-6.0); HEMATOCRIT 38.9 % (34.2-44.1); HEMOGLOBIN 12.7 g/dL (12.0-16.0); LYMPHOCYTES # (AUTO) 1.5 (1.0-3.2); LYMPHOCYTES % 16.1 % (18.0-39.1); MEAN CORPUSCULAR HEMOGLOBIN 28.3 pg (28-32); MEAN CORPUSCULAR HGB CONC 32.6 g/dL (31-35); MEAN CORPUSCULAR VOLUME 86.8 fL (81-99); MONOCYTES # (AUTO) 0.8 (0.2-0.8); NEUTROPHILS # (AUTO) 7.1 (2.1-6.9); NEUTROPHILS % 74.5 % (38.7-80.0); PLATELET COUNT 277 x10e3/uL (140-360); RED BLOOD COUNT 4.48 x10e6/uL (3.6-5.1); RED CELL DISTRIBUTION WIDTH 15.7 % (11.7-14.4)
--- NOTE | 2018-07-25 19:20 | NUR ---
REPORT GIVEN TO CASEY CORDON CHANNEL CEMENTER INSOLE MACHINE NURSE.
[2018-07-25 19:24] LABS: STREPTOCOCCUS GRP A ANTIGEN NEGATIVE (NEGATIVE)
[2018-07-25 19:30] LABS: INR 1.01; PROTHROMBIN TIME 14.2 seconds (11.9-14.5)
[2018-07-25 19:38] LABS: ALBUMIN 2.6 g/dL (3.5-5.0); ALBUMIN/GLOBULIN RATIO 0.6 (0.8-2.0); ANION GAP 16.8 mmol/L (8-16); CALCIUM 9.3 mg/dL (8.4-10.2); CREATININE, SERUM 1.29 mg/dL (0.57-1.11); MAGNESIUM 1.6 MG/DL (1.3-2.1); POTASSIUM 3.8 mmol/L (3.5-5.1)
[2018-07-25 19:43] LABS: INFLUENZAE A&B ANTIGEN (RAPID) NEGATIVE (NEGATIVE)
[2018-07-25 19:44] LABS: CREATINE KINASE MB 1.2 ng/mL (0-5.0)
--- NOTE | 2018-07-25 20:01 | Diagnostic Imaging Report ---
EXAMINATION: Head CT without contrast. HISTORY:Altered mental status. COMPARISON:None. TECHNIQUE: Multidetector axial images were obtained from the foramen magnum to the vertex without contrast. The images were reconstructed using brain and bone algorithms. Thin section brain images were reformatted into coronal and sagittal planes. Dose modulation, iterative reconstruction, and/or weight based adjustment of the mA/kV was utilized to reduce the radiation dose to as low as reasonably achievable. Intravenous contrast: None IMAGE QUALITY: Suboptimal evaluation due to motion-related streak artifacts, particularly at the level of skull base and posterior fossa structures. FINDINGS: Skull/scalp: No lytic or blastic. lesions. No surgical changes. Heterogeneous appearance of the bone marrow density particularly at the level of skull base possibly related to osseous demineralization. Parenchyma: Nonspecific bilateral frontoparietal white matter hypodensity are likely related to small vessel ischemic changes. No acute hemorrhage, mass or acute major vascular territorial infarct. Arteries: No density suggestive of thrombosis. Atherosclerotic calcification in bilateral carotid siphon and V4 segment of vertebral arteries. Dural sinuses: No abnormal density suggestive of thrombosis. Ventricles: Moderate compensated dilatation due to volume loss. No hydrocephalus. Extra-axial spaces: No abnormal density. Brain volume: Advanced generalized cerebral volume loss. Craniocervical junction: No mass, Chiari malformation, or basilar invagination. Sella: No mass. Paranasal/mastoid sinuses: Imaged portions unremarkable. Incidental finding: Mild right and moderate left degenerative changes in the temporomandibular joints. IMPRESSION: 1. Suboptimal evaluation due to motion artifacts, despite the limitation no gross acute intracranial abnormality. 2. Mild supratentorial white matter microvascular ischemic changes. 3. Generalized advanced age-related cerebral volume loss. Signed by: Dr. Katiana Mujica M.D. on 07/25/2018 7:57 PM
[2018-07-25 20:15] LABS: BILIRUBIN,URINE NEGATIVE (NEGATIVE); CLARITY,URINE CLEAR (CLEAR); COLOR,URINE YELLOW (YELLOW); KETONES,URINE NEGATIVE (NEGATIVE); LEUKOCYTE ESTERASE ,URINE NEGATIVE (NEGATIVE); NITRITE,URINE NEGATIVE (NEGATIVE); PROTEIN,URINE DIPSTICK NEGATIVE (NEGATIVE); URINE UROBILINOGEN 0.2 mg/dL (0.2 - 1)
--- NOTE | 2018-07-25 20:16 | Diagnostic Imaging Report ---
A single frontal view of the chest. HISTORY: High glucose, fever COMPARISON: Chest radiographs July 18, 2018 DISCUSSION: Portable technique and positioning markedly limits sensitivity of the exam. Soft tissue attenuation further limits sensitivity of the exam. Multiple overlying artifacts. Right anterior oblique rotation further distorts anatomy. Tubes/Lines: Interval removal of the right upper extremity PICC line and enteric tube. Lungs and pleura: Markedly low lung volumes result in bibasilar vascular crowding, accentuation of the pulmonary interstitial markings, central pulmonary vasculature, and the cardiac silhouette. Allowing for these limitations, the findings are as follows: Diffusely increased interstitial markings with areas of patchy more confluent opacity, especially the left lung base. A small left pleural effusion is possible. Heart and mediastinum: The cardiomediastinal silhouette appears prominent. Atherosclerotic vascular calcifications at the aortic arch. Bones and soft tissues: Diffusely decreased mineralization of the osseous structures limits bone detail. IMPRESSION: 1. Left basilar opacity may reflect a combination of pneumonia, aspiration, and/or small effusion with adjacent atelectasis. 2. Diffuse increased interstitial markings, may be secondary to pulmonary edema or multifocal pneumonia. Signed by: Dr. Abhijit Mitchell D.O., M.M.M. on 07/25/2018 8:13 PM
[2018-07-25] MEDS ORDERED: ASPIRIN 81 MG CHEW TAB PO ONE (20:30)
[2018-07-25] MEDS ORDERED: CEFTRIAXONE SOD 1 GRAM/0.9% SOD CHL 50ML BAG IV SCH (20:30)
[2018-07-25] MEDS ORDERED: AZITHROMYCIN 500MG/SOD CHL 0.9% 250ML BAG IV SCH (20:30)
[2018-07-25] MEDS ORDERED: VANCOMYCIN HCL 1GM/NS 250 ML BAG IV SCH (20:30)
[2018-07-25] MEDS: CEFTRIAXONE SOD 1 GM/NS 50 ML 50 ML IV SCH (21:30)
[2018-07-25] MEDS: AZITHROMYCIN 500MG/NS 250 ML 250 ML IV SCH (22:00)
[2018-07-25] MEDS ORDERED: VANCOMYCIN 1GM/NS 250 ML 250 ML IV SCH (22:00)
[2018-07-25 22:05] VITALS: BP 140/82
[2018-07-25] MEDS ORDERED: HYDRALAZINE HCL 20 MG/ML VIAL IV PRN (23:00)
[2018-07-25] MEDS ORDERED: ONDANSETRON HCL INJ 2MG/ML 2ML 2 MG/ML VIAL IV PRN (23:00)
[2018-07-25] MEDS ORDERED: ALBUTEROL SULF 0.083% NEB SOLN 3 ML NEB NEB PRN (23:00)
[2018-07-26] VITALS (7 sets, daily range): BP systolic 97–140; BP diastolic 55–67
[2018-07-26] MEDS ORDERED: DEXTROSE 50% SYRINGE 50 ML IV PRN (04:00)
[2018-07-26] MEDS ORDERED: METOPROLOL TARTRATE 50 MG TAB PO ONE (04:15)
--- NOTE | 2018-07-26 07:00 | NUR ---
PT UP IN BED NO DISTRESS NOTED ,NO S/S DISCOMFORT.
[2018-07-26] MEDS ORDERED: GUAIFENESIN 600 MG TAB PO PRN (07:30)
[2018-07-26 07:36] LABS: CREATINE KINASE MB 1.1 ng/mL (0-5.0)
[2018-07-26] MEDS ORDERED: NAMENDA10 MG PO (08:31)
[2018-07-26] MEDS ORDERED: RIVASTIGMINE TOP (08:31)
[2018-07-26] MEDS ORDERED: COUMADIN2 MG PO (08:31)
[2018-07-26] MEDS: INSULIN LISPRO 100 UNIT/1 ML 3ML VIAL SQ SCH ×5 (09:00→20:40)
[2018-07-26] MEDS ORDERED: TRESIBA 20 UNIT SQ SCH (09:00)
[2018-07-26] MEDS ORDERED: INSULIN GLARGINE 30 UNIT SQ SCH (09:00)
[2018-07-26] MEDS ORDERED: ALOGLIPTIN 12.5 MG PO SCH (09:00)
[2018-07-26] MEDS: POTASSIUM CHLORIDE 20 MEQ TAB CR PO SCH (09:33)
[2018-07-26] MEDS: DIGOXIN 0.125 MG TAB PO SCH (09:33)
[2018-07-26] MEDS: FUROSEMIDE 40 MG TAB PO SCH (09:33)
[2018-07-26] MEDS: AMLODIPINE BESYLATE 5 MG TAB PO SCH (09:34)
[2018-07-26] MEDS: MEMANTINE 10 MG TAB PO SCH (09:34)
[2018-07-26] MEDS: ACETAMINOPHEN 325 MG TAB PO PRN ×2 (09:35→21:12)
[2018-07-26] MEDS: FAMOTIDINE 20 MG TAB PO SCH ×2 (09:35→16:30)
[2018-07-26] MEDS: METOPROLOL TARTRATE 50 MG TAB PO SCH ×2 (09:51→17:00)
[2018-07-26] MEDS: LACTOBACILLUS ACIDOPHILUS CAPSULE PO SCH ×2 (12:36→17:00)
[2018-07-26] MEDS: RIVASTIGMINE TRANSDERMAL 9.5MG/24HOURS PATCH TD SCH (12:36)
--- NOTE | 2018-07-26 12:55 | NUR ---
WAS INFORMED PT CAME FROM [facility] AND DOES NOT WANT TO RETURN. GAVE OPTIONS OF [facility] AND [facility]. FAMILY IS GOING TO LOOK AT THE CHOICES AND LET SW KNOW WHICH ONE THEY CHOOSE AND WILL SEND CLINICALS WHEN GET NOTIFIED.
[2018-07-26] MEDS: ALBUTEROL/IPRATROPIUM 3 ML NEB NEB SCH ×3 (13:00→23:49)
[2018-07-26 15:00] LABS: CREATINE KINASE MB 0.9 ng/mL (0-5.0)
[2018-07-26 15:35] LABS: FREE T4 (FREE THYROXINE) 1.12 ng/dL (0.9-1.8); THYROID STIMULATING HORMONE 0.2 uIU/mL (0.350-4.940)
--- NOTE | 2018-07-26 15:37 | Consultation ---
DATE OF CONSULTATION: July 26, 2018 ENDOCRINE CONSULTATION This is a patient of Dr. Ortiz. Thank you very much for referring this patient. This is an 88-year-old lady who is referred to me for evaluation of uncontrolled diabetes mellitus. Patient came to the hospital with history of fever and chills and is being evaluated for pneumonia. Her other medical problems include history of hypertension and also cardiac arrhythmias. She is on insulin 30 units of glargine twice a day and Humalog with each meal. PHYSICAL EXAMINATION GENERAL: Today, the patient is alert, awake, a little bit apprehensive. VITALS: Her heart rate is around 78. Blood pressure 130/80 mmHg. HEENT: Examination is essentially unremarkable. Thyroid is palpable. Clinically she is near euthyroid. CHEST: Bilateral vesicular breathing. No rales heard. First and 2nd heart sound. There is no 3rd or 4th heart sound. Ejection systolic murmur grade 2/6. 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 CLINICAL IMPRESSION 1. Diabetes mellitus, type 2, uncontrolled, with complications. 2. Pneumonia. 3. Hypertension. The plan at this time is to put her back on the Humalog insulin with each meal and also do a hemoglobin A1c and thyroid function test. Thanks again for referring this patient. I will be following this patient with you. Job#: [id number] BERT CHERRY
[2018-07-26] MEDS: WARFARIN SOD 5 MG TAB PO SCH (17:00)
--- NOTE | 2018-07-26 18:46 | NUR ---
PT ASSISTED UP TO [facility] ,VOIDED AND HAD BM ,NO S/S DISCOMFORT
--- NOTE | 2018-07-26 19:10 | NUR ---
Patient visited in room during nursing rounds. Patient alert and oriented x2-3 (pt tends to forget recent memory). Patient breathing on room air and does not have any complaint of dyspnea or pain at this time. Three daughters at bedside visiting patient. Bed alarm active. Up with assist prn. Call light within reach. One of the daughters to stay with patien tonight. Will monitor closely.
--- NOTE | 2018-07-26 19:27 | Consultation ---
DATE OF CONSULTATION: PULMONARY/CRITICAL CARE CONSULTATION CHIEF COMPLAINT: Recurrent pneumonia and high blood sugar. HISTORY OF PRESENT ILLNESS: Patient is an 88-year-old woman. She was recently hospitalized for an aspiration pneumonia with sepsis that required intubation and mechanical ventilation. She recovered from this and [facility]. Currently, she became more obtunded at [facility]. There is some choking and coughing while drinking liquids. She also had an elevated blood sugar. The family took her from [facility] and brought her back to the ER. PAST MEDICAL HISTORY: 1. Recurrent aspiration pneumonia. 2. Atrial fibrillation. 3. Diabetes. FAMILY HISTORY: Family history is noncontributory. SOCIAL HISTORY: Patient is not a smoker or drinker. She has 12 children, one of whom lives in [place] and two of whom are visiting from out of town. ALLERGIES: PATIENT HAS NO KNOWN DRUG ALLERGIES. REVIEW OF SYSTEMS: The patient has no fever. She did have some sweating. She has no headache. She has no neck pain. She has no sore throat. She is not having any chest pain. She did have some cough and congestion. She has no abdominal pain. She has no nausea or vomiting. She has no leg swelling. PHYSICAL EXAMINATION: VITAL SIGNS: The patient is afebrile. The vital signs are stable. HEENT: Shows no facial swelling or erythema. The nasal mucosa is normal. The oropharynx is normal. LYMPHATIC: Shows no submandibular, cervical, or supraclavicular adenopathy. NECK: Shows no JVD or thyromegaly. There is no nuchal rigidity. CARDIAC: Reveals a regular rate and rhythm with a normal S1 and S2. There are no murmurs or rubs. CHEST: Auscultation of lungs reveals clear breath sounds bilaterally. There is some rhonchi. ABDOMEN: Soft and nontender. There is no rebound or guarding. EXTREMITIES: Shows no leg edema or calf tenderness. RADIOGRAPHIC DATA: Chest x-ray shows left basal opacity suggestive of aspiration pneumonitis. LABORATORY DATA: Blood sugar was initially 500, but has decreased down to 124. IMPRESSION: 1. Recurrent aspiration pneumonia with sepsis present on admission. 2. Hyperglycemia. 3. Acute kidney injury. 4. Hyponatremia. 5. Atrial fibrillation. PLAN: 1. Restart antibiotics. 2. Speech therapy. 3. Monitor and control blood sugars. 4. Physical therapy. Thank you. Job#: [id number]
[2018-07-26] MEDS ORDERED: METOPROLOL TARTRATE 50 MG TAB PO SCH (20:00)
[2018-07-26] MEDS: INSULIN GLARGINE 100 UNITS/ML VIAL SQ SCH (20:40)
[2018-07-26] MEDS: CEFTRIAXONE SOD 1 GM/NS 50 ML 50 ML IV SCH (20:50)
[2018-07-26] MEDS: PANTOPRAZOLE SOD 40 MG TABEC PO SCH (20:57)
[2018-07-26] MEDS: AZITHROMYCIN 500MG/NS 250 ML 250 ML IV SCH (21:40)
[2018-07-27] VITALS (8 sets, daily range): BP systolic 102–165; BP diastolic 53–68
[2018-07-27] MEDS ORDERED: VANCOMYCIN 1GM/NS 250 ML 250 ML IV SCH
[2018-07-27 03:43] LABS: BASOPHILS % 0.3 % (0.0-1.0); EOSINOPHILS # (AUTO) 0.2 (0.0-0.4); EOSINOPHILS % 2.2 % (0.0-6.0); HEMATOCRIT 30.2 % (34.2-44.1); HEMOGLOBIN 9.8 g/dL (12.0-16.0); LYMPHOCYTES % 21.8 % (18.0-39.1); MEAN CORPUSCULAR HEMOGLOBIN 28.4 pg (28-32); MEAN CORPUSCULAR HGB CONC 32.5 g/dL (31-35); MEAN CORPUSCULAR VOLUME 87.5 fL (81-99); MONOCYTES # (AUTO) 0.8 (0.2-0.8); MONOCYTES % 8.5 % (4.4-11.3); NEUTROPHILS # (AUTO) 6.2 (2.1-6.9); NEUTROPHILS % 66.7 % (38.7-80.0); PLATELET COUNT 218 x10e3/uL (140-360); RED BLOOD COUNT 3.45 x10e6/uL (3.6-5.1); RED CELL DISTRIBUTION WIDTH 15.6 % (11.7-14.4)
[2018-07-27 03:52] LABS: INR 1.19; PROTHROMBIN TIME 16.2 seconds (11.9-14.5)
[2018-07-27 03:57] LABS: ANION GAP 14.5 mmol/L (8-16); CALCIUM 8.1 mg/dL (8.4-10.2); CREATININE, SERUM 1.07 mg/dL (0.57-1.11); POTASSIUM 3.5 mmol/L (3.5-5.1)
[2018-07-27] MEDS: ALBUTEROL/IPRATROPIUM 3 ML NEB NEB SCH ×3 (07:00→19:15)
--- NOTE | 2018-07-27 07:00 | NUR ---
beside report received at this time, patient alert and oriented with daughter at bedside. Patient in no distress, call he within reach and bed in lowest position.
--- NOTE | 2018-07-27 07:40 | NUR ---
call received from telemetry that patient's heart rate showing 150 bpm, checked the patient who was lying in bed, apical pulse 125 bpm, gave IV dose of lopressor to bring heart rate down.
[2018-07-27] MEDS: METOPROLOL TARTRATE INJ 1 MG/ML VIAL IV PRN (07:41)
--- NOTE | 2018-07-27 07:53 | Diagnostic Imaging Report ---
PROCEDURE:X-RAY MODIFIED BARIUM SWALLOW COMPARISON:Prior similar study dated 07/18/2018 INDICATIONS:Dysphasia DISCUSSION:Fluoroscopic examination was performed in conjunction with speech pathology, during swallowing of a variety of thin and thick liquid consistencies. Fluoroscopy time: 3.0 minutes Total dose: 3.44 Gy.cm2 CONCLUSION:There is laryngeal penetration with silent aspiration. There is improvement in the swallowing mechanism compared to the prior study. Please see the report from speech pathology for complete details. David Connell D.O. Dictated by: David Connell D.O. on 07/27/2018 at 8:06 Electronically approved by: David Connell D.O. on 07/27/2018 at 8:06
[2018-07-27] MEDS: FAMOTIDINE 20 MG TAB PO SCH ×2 (08:35→17:25)
[2018-07-27] MEDS: INSULIN LISPRO 100 UNIT/1 ML 3ML VIAL SQ SCH ×7 (08:35→21:11)
[2018-07-27] MEDS: POTASSIUM CHLORIDE 20 MEQ TAB CR PO SCH (08:35)
[2018-07-27] MEDS: RIVASTIGMINE TRANSDERMAL 9.5MG/24HOURS PATCH TD SCH (08:35)
[2018-07-27] MEDS: LACTOBACILLUS ACIDOPHILUS CAPSULE PO SCH ×2 (08:35→17:25)
[2018-07-27] MEDS: MEMANTINE 10 MG TAB PO SCH (08:35)
[2018-07-27] MEDS: DIGOXIN 0.125 MG TAB PO SCH (08:35)
[2018-07-27] MEDS: FUROSEMIDE 40 MG TAB PO SCH (08:35)
[2018-07-27] MEDS: ALOGLIPTIN 12.5 MG PO SCH (09:00)
[2018-07-27] MEDS: FERROUS GLUCONATE PO SCH (09:00)
[2018-07-27] MEDS: TRESIBA 20 UNIT SC SCH (09:00)
[2018-07-27] MEDS: AMLODIPINE BESYLATE 5 MG TAB PO SCH (09:30)
[2018-07-27] MEDS: METOPROLOL TARTRATE 50 MG TAB PO SCH ×2 (09:30→17:25)
[2018-07-27] MEDS ORDERED: FUROSEMIDE INJ 10 MG/ML 4 ML VIAL IV ONE (09:45)
[2018-07-27] MEDS: INSULIN GLARGINE 100 UNITS/ML VIAL SQ SCH ×2 (10:10→21:00)
--- NOTE | 2018-07-27 10:30 | NUR ---
patient heart rate has now come back down to 90 bpm. Patient resting comfortably in bed and in no distress.
--- NOTE | 2018-07-27 13:46 | NUR ---
FAXED CLINICALS TO [facility] [phone]
[2018-07-27] MEDS: ACETAMINOPHEN 325 MG TAB PO PRN (15:55)
[2018-07-27] MEDS ORDERED: SODIUM CHLORIDE 0.9% 1000ML 500 ML IV SCH (16:45)
[2018-07-27] MEDS: OYST-CAL-D 500MG TABLET PO SCH (17:25)
[2018-07-27] MEDS: WARFARIN SOD 5 MG TAB PO SCH (17:25)
--- NOTE | 2018-07-27 17:34 | Diagnostic Imaging Report ---
EXAMINATION: CHEST SINGLE (PORTABLE) INDICATION: ^Fever Confusion COMPARISON: Chest x-ray 07/25/2018. 07/18/2018. FINDINGS: AP view TUBES and LINES: None. LUNGS: Lungs are not well inflated. Minimal improvement in diffuse and show opacities. Persistent bibasilar atelectasis and/or consolidation. PLEURA: No pleural effusion or pneumothorax. HEART AND MEDIASTINUM: Cardiac size is moderately enlarged. There are atherosclerotic calcifications within the aorta. BONES AND SOFT TISSUES: No acute osseous lesion. Soft tissues are unremarkable. UPPER ABDOMEN: No free air under the diaphragm. Bilateral contrast in the descending colon. IMPRESSION: 1. Minimal improvement in diffuse interstitial opacities, which may represent pulmonary edema versus multifocal pneumonia superimposed on chronic lung changes. 2. Slight improvement in bibasilar atelectasis and/or consolidation. Signed by: Dr. Carlitos Tyler M.D. on 07/27/2018 5:30 PM
--- NOTE | 2018-07-27 19:10 | NUR ---
machinist 2nd shift nurse given report, patient aware of change, bed in lowest position and call he within reach
[2018-07-27] MEDS: CEFTRIAXONE SOD 1 GM/NS 50 ML 50 ML IV SCH (21:00)
[2018-07-27] MEDS: PANTOPRAZOLE SOD 40 MG TABEC PO SCH (21:00)
[2018-07-27] MEDS: AZITHROMYCIN 500MG/NS 250 ML 250 ML IV SCH (21:51)
[2018-07-28] VITALS (8 sets, daily range): BP systolic 113–126; BP diastolic 56–70
--- NOTE | 2018-07-28 05:01 | Consultation ---
DATE OF CONSULTATION: Cardiac consultation. REASON FOR CONSULTATION: Multiple system involvement in heart and respiratory distress. HISTORY: This is an [id number]-lady, who is very well known to our service. The patient was at this institution with respiratory failure. She was intubated and subsequently extubated. She was dismissed home on 07/19/2018. She went to rehabilitation place, unfortunately "care" as per family was not good. She had several episodes of hypoglycemia. She started coughing, she started worsening. So, she was transferred urgently to here. Her medications resumed and she looks better, and she is having less shortness of breath and happier. The patient is now with longstanding history of chronic atrial fibrillation, repeated aspiration, diabetes mellitus, peripheral neuropathy, asthma, dementia, and debility. Cardiac weaver, it seems now she is better. Her family is feeding her and her shortness of breath seems to be improved. Her heart rate is now better without taking her medication. She was having problem breathing as per family and cough, and she was having quite a lot worsening status, they cannot wake her up and she was very lethargic and obtunded. PAST MEDICAL HISTORY: 1. Respiratory failure, recent intubation in July 2018. 2. Hypertension. 3. Chronic atrial fibrillation. 4. Diastolic left ventricular dysfunction. 5. Diabetes mellitus. 6. Peripheral neuropathy. 7. Asthma. 8. Hyperlipidemia. 9. Dementia. 10. Debility. 11. Cholecystectomy. FAMILY HISTORY: Mother at age 86 with hypertension complications. Father at age of 70 following cholecystitis. SOCIAL HISTORY: She is a . She is nonsmoker, not alcohol drinker. She does have good family support, with 5 daughters. CURRENT MEDICATIONS: Include: 1. Warfarin 5 mg a day (her usual dose is 4 mg 5 days a week and 2 mg 2 days a week). 2. Amlodipine 5 mg a day. 3. Metoprolol 100 mg twice a day. 4. Digoxin 0.125 mg 5 days a week. 5. Rivastigmine 4.5 mg twice a day. 6. Ranitidine. 7. Lasix 40 mg a day. 8. Potassium supplement 10 mEq a day. 9. Insulin sliding scale. Following admission, the patient started also on ceftriaxone and breathing treatment. ALLERGIES: NONE. REVIEW OF SYSTEMS: GENERAL: Debility, lethargic, obtunded, now better. HEENT: Repeated congestion. PULMONARY: Cough and shortness of breath. CARDIAC: No angina shortness of breath. GI: The patient needs attention with her feeding. : She is incontinent. She uses diapers. MUSCULOSKELETAL: The patient having generalized weakness, but no localized weakness. The patient's mentation is not perfect. PHYSICAL EXAMINATION: VITAL SIGNS: Height of 5 feet 3 inches, weight of 125 pounds. Blood pressure 120/60, heart rate of 90 atrial fibrillation, respiratory rate of 18, currently afebrile at 98. HEENT: Pupils are reactive. NECK: No elevation of jugular venous pulsation. CHEST: Bilateral crackles and rales. HEART: PMI in fifth left intercoastal space atrial fibrillation. Normal first and second heart sounds. Soft flow murmur, left sternal border. ABDOMEN: Soft. There is no organomegaly. No abdominal bruits. EXTREMITIES: No cyanosis, no clubbing, no edema. NEUROLOGIC: Able to move extremities. Muscle wasting is noted, but no localized deficit weakness is noted. LABORATORY DATA: BUN 15, creatinine , sodium 135, potassium 3.5, glucose of 194. White blood cell count of 9.2, hemoglobin of 9.8, hematocrit , platelet count of 218. INR of only 1.2. Chest x-ray showing diffuse changes. IMPRESSION AND PLAN: 1. Aspiration pneumonia. 2. Atrial fibrillation, rate controlled. 3. Advanced lung disease and history of intubation and pulmonary failure. 4. Debility. 5. Hypertension. 6. Dementia. 7. Diabetes mellitus. Cardiac weaver: The patient is on quite appropriate cardiac medications including the metoprolol 100 mg twice a day, digoxin 0.125 mg 5 days, as well as anticoagulation, although she is not fully anticoagulated yet. She is also on amlodipine for better blood pressure control. We will continue Lasix p.r.n. We will continue her other medication. We will follow her progression with you and would like to thank you for your kind referral. MD KERRY Carr/CRISTOBAL /[id number]
[2018-07-28 05:20] LABS: ALBUMIN 2.1 g/dL (3.5-5.0); ALBUMIN/GLOBULIN RATIO 0.5 (0.8-2.0); ANION GAP 12.5 mmol/L (8-16); CALCIUM 8.1 mg/dL (8.4-10.2); CREATININE, SERUM 1.02 mg/dL (0.57-1.11); POTASSIUM 3.5 mmol/L (3.5-5.1)
[2018-07-28 06:49] LABS: BASOPHILS % 0.2 % (0.0-1.0); EOSINOPHILS # (AUTO) 0.2 (0.0-0.4); EOSINOPHILS % 1.6 % (0.0-6.0); HEMOGLOBIN 9.9 g/dL (12.0-16.0); LYMPHOCYTES # (AUTO) 1.6 (1.0-3.2); LYMPHOCYTES % 17.2 % (18.0-39.1); MEAN CORPUSCULAR HEMOGLOBIN 28.9 pg (28-32); MEAN CORPUSCULAR VOLUME 87.5 fL (81-99); MONOCYTES # (AUTO) 0.6 (0.2-0.8); MONOCYTES % 6.7 % (4.4-11.3); NEUTROPHILS # (AUTO) 6.9 (2.1-6.9); NEUTROPHILS % 73.8 % (38.7-80.0); PLATELET COUNT 232 x10e3/uL (140-360); RED BLOOD COUNT 3.43 x10e6/uL (3.6-5.1); RED CELL DISTRIBUTION WIDTH 15.3 % (11.7-14.4)
[2018-07-28 06:53] LABS: MAGNESIUM 1.5 MG/DL (1.3-2.1)
[2018-07-28 06:55] LABS: INR 1.22; PROTHROMBIN TIME 16.5 seconds (11.9-14.5)
--- NOTE | 2018-07-28 07:00 | NUR ---
rounded with film processing shift supervisor nurse, patient alert and reoriented. Daughter at bedside. Call he within reach and bed in lowest position.
[2018-07-28] MEDS: ALBUTEROL/IPRATROPIUM 3 ML NEB NEB SCH ×4 (07:45→19:05)
[2018-07-28] MEDS: LACTOBACILLUS ACIDOPHILUS CAPSULE PO SCH ×2 (08:30→17:30)
[2018-07-28] MEDS: MEMANTINE 10 MG TAB PO SCH (08:30)
[2018-07-28] MEDS: FAMOTIDINE 20 MG TAB PO SCH ×2 (08:30→17:30)
[2018-07-28] MEDS: METOPROLOL TARTRATE 50 MG TAB PO SCH ×2 (08:30→17:30)
[2018-07-28] MEDS: OYST-CAL-D 500MG TABLET PO SCH ×2 (08:30→17:30)
[2018-07-28] MEDS: INSULIN GLARGINE 100 UNITS/ML VIAL SQ SCH ×2 (08:30→21:00)
[2018-07-28] MEDS: RIVASTIGMINE TRANSDERMAL 9.5MG/24HOURS PATCH TD SCH (08:30)
[2018-07-28] MEDS: AMLODIPINE BESYLATE 5 MG TAB PO SCH (08:30)
[2018-07-28] MEDS: INSULIN LISPRO 100 UNIT/1 ML 3ML VIAL SQ SCH ×7 (08:30→21:00)
[2018-07-28] MEDS: POTASSIUM CHLORIDE 20 MEQ TAB CR PO SCH (08:30)
[2018-07-28] MEDS: FERROUS GLUCONATE PO SCH (09:00)
[2018-07-28] MEDS: TRESIBA 20 UNIT SC SCH (09:00)
[2018-07-28] MEDS: ALOGLIPTIN 12.5 MG PO SCH (09:00)
[2018-07-28] MEDS: WARFARIN SOD 5 MG TAB PO SCH (17:30)
--- NOTE | 2018-07-28 19:25 | NUR ---
walking rounds made with night guard nurse, patient aware of change and in no distress with family at bedside. Call he within reach and bed in lowest position.
[2018-07-28] MEDS: CEFTRIAXONE SOD 1 GM/NS 50 ML 50 ML IV SCH (21:33)
[2018-07-28] MEDS: PANTOPRAZOLE SOD 40 MG TABEC PO SCH (21:33)
[2018-07-28] MEDS: AZITHROMYCIN 500MG/NS 250 ML 250 ML IV SCH (21:33)
--- NOTE | 2018-07-28 22:00 | NUR ---
2000: patient rounded : bed in lowest position and locked, needed items beside bed and call he placed close to patient, yellow socks on patient, bed alarm is on, room is free of clutter. patient is currently stable will continue to monitor. 2200: patient rounded : bed in lowest position and locked, needed items beside bed and call he placed close to patient, yellow socks on patient, bed alarm is on, room is free of clutter. patient is currently stable will continue to monitor
[2018-07-28] MEDS: ACETAMINOPHEN 325 MG TAB PO PRN (22:21)
[2018-07-29] VITALS (8 sets, daily range): BP systolic 102–120; BP diastolic 55–74
[2018-07-29] MEDS: ALBUTEROL/IPRATROPIUM 3 ML NEB NEB SCH ×4 (00:05→19:03)
[2018-07-29 05:57] LABS: BASOPHILS % 0.4 % (0.0-1.0); EOSINOPHILS # (AUTO) 0.2 (0.0-0.4); EOSINOPHILS % 2.5 % (0.0-6.0); HEMATOCRIT 28.8 % (34.2-44.1); HEMOGLOBIN 9.4 g/dL (12.0-16.0); LYMPHOCYTES % 28.1 % (18.0-39.1); MEAN CORPUSCULAR HEMOGLOBIN 28.9 pg (28-32); MEAN CORPUSCULAR HGB CONC 32.6 g/dL (31-35); MEAN CORPUSCULAR VOLUME 88.6 fL (81-99); MONOCYTES # (AUTO) 0.4 (0.2-0.8); NEUTROPHILS # (AUTO) 4.5 (2.1-6.9); NEUTROPHILS % 62.6 % (38.7-80.0); PLATELET COUNT 220 x10e3/uL (140-360); RED BLOOD COUNT 3.25 x10e6/uL (3.6-5.1); RED CELL DISTRIBUTION WIDTH 15.3 % (11.7-14.4)
--- NOTE | 2018-07-29 06:00 | NUR ---
0400: Patient rounded and stable. 0600: patient rounded and stable.
[2018-07-29 06:08] LABS: INR 1.43; PROTHROMBIN TIME 18.6 seconds (11.9-14.5)
[2018-07-29 06:17] LABS: ALBUMIN/GLOBULIN RATIO 0.5 (0.8-2.0); ANION GAP 10.8 mmol/L (8-16); CREATININE, SERUM 0.97 mg/dL (0.57-1.11); POTASSIUM 3.8 mmol/L (3.5-5.1)
--- NOTE | 2018-07-29 07:05 | NUR ---
rounded with deliverer pharmacy nurse, patient aware of change with daughter at bedside. Call he within reach and bed in lowest position.
--- NOTE | 2018-07-29 07:10 | NUR ---
Patient endorsed to next shift for continuity of care.
[2018-07-29] MEDS: INSULIN LISPRO 100 UNIT/1 ML 3ML VIAL SQ SCH ×7 (07:30→21:48)
[2018-07-29] MEDS: OYST-CAL-D 500MG TABLET PO SCH ×2 (08:40→18:15)
[2018-07-29] MEDS: POTASSIUM CHLORIDE 20 MEQ TAB CR PO SCH (08:40)
[2018-07-29] MEDS: MEMANTINE 10 MG TAB PO SCH (08:40)
[2018-07-29] MEDS: INSULIN GLARGINE 100 UNITS/ML VIAL SQ SCH ×2 (08:40→21:47)
[2018-07-29] MEDS: FAMOTIDINE 20 MG TAB PO SCH ×2 (08:40→18:15)
[2018-07-29] MEDS: LACTOBACILLUS ACIDOPHILUS CAPSULE PO SCH ×2 (08:40→18:15)
[2018-07-29] MEDS: METOPROLOL TARTRATE 50 MG TAB PO SCH ×2 (08:40→18:15)
[2018-07-29] MEDS: FUROSEMIDE 40 MG TAB PO SCH (08:40)
[2018-07-29] MEDS: RIVASTIGMINE TRANSDERMAL 9.5MG/24HOURS PATCH TD SCH (08:40)
[2018-07-29] MEDS: AMLODIPINE BESYLATE 5 MG TAB PO SCH (08:40)
[2018-07-29] MEDS: FERROUS GLUCONATE PO SCH (09:00)
--- NOTE | 2018-07-29 11:32 | Diagnostic Imaging Report ---
EXAMINATION: CHEST SINGLE (PORTABLE) INDICATION: Pneumonia. COMPARISON: Chest x-ray 07/27/2018. FINDINGS: Somewhat Limited radiograph secondary to portable technique and patient rotation. The patient's chin obscures the left lung apex. TUBES and LINES: None. LUNGS: Lungs are not well inflated. There are increased opacities in the right upper and lower lung with slightly improved opacity in the left midlung. Linear subsegmental atelectasis in the left lower lung. PLEURA: No pleural effusion or pneumothorax. HEART AND MEDIASTINUM: Cardiac size is moderately enlarged. There are atherosclerotic calcifications within the aorta. BONES AND SOFT TISSUES: No acute osseous lesion. Soft tissues are unremarkable. UPPER ABDOMEN: No free air under the diaphragm. IMPRESSION: Multifocal opacities, slightly increased on the right and improved on the left, which may reflect edema versus multifocal pneumonia. Signed by: Dr. Gautam Levi MD on 07/29/2018 11:29 AM
--- NOTE | 2018-07-29 17:29 | Progress Note ---
DATE: Pulmonary Critical Care Progress Note SUBJECTIVE: The patient is doing better today. She is sitting upright in the chair. She is eating with the assistance of her daughters. PHYSICAL EXAMINATION: GENERAL: She has no fever. She has no headache. NECK: She is not complaining of neck pain. CHEST: She does have some chest congestion. She has no chest pain. She has some mild cough. ABDOMEN: She does not complain of abdominal pain. Abdomen is soft and nontender. There is no rebound or guarding. EXTREMITIES: She has no leg edema or calf tenderness. IMPRESSION: 1. Recurrent aspiration pneumonia with sepsis present on admission. 2. Metabolic encephalopathy. 3. Diabetes. 4. Paroxysmal atrial fibrillation. PLAN: 1. The patient will continue speech therapy. 2. Continue antibiotics. 3. Continue current cardiac regimen. 4. Possible discharge tomorrow with home health and outpatient speech therapy. MD SYLVIA Dixon/CR[place] /[id number]
--- NOTE | 2018-07-29 17:40 | NUR ---
upon entering patient's room, found the patient having cold sweats. Checked temperature and BS promptly, temp 97.0 F and BS was 32. Pushed dextrose and rechecked BS 20 minutes later which was 184. Patient now resting in bed with daughters at bedside.
[2018-07-29] MEDS: METOPROLOL TARTRATE INJ 1 MG/ML VIAL IV PRN (17:47)
[2018-07-29] MEDS: WARFARIN SOD 5 MG TAB PO SCH (18:15)
--- NOTE | 2018-07-29 18:53 | NUR ---
Called in BS incident and family concerns of too much insulin being given to the patient to Dr Beal. Per MD reduce scheduled insulin to 12 units at each meal and sliding scale in addition.
--- NOTE | 2018-07-29 19:10 | NUR ---
report given to meat packer nurse, patient aware of change. Call he within reach and bed in lowest position
--- NOTE | 2018-07-29 19:25 | NUR ---
Received patient from day nurse, patient is alert and oriented, introduced myself to patient and patient made aware of the importance of calling for help, patient's daughter at the bed side, instructed to always call for help. safety and fall precaution maintained as per hospital protocol:bed in lowest position and locked, needed items beside bed and call he placed close to patient, yellow socks on patient, bed alarm set, and room made free of clutter. patient is currently stable will continue to monitor.
[2018-07-29] MEDS: PANTOPRAZOLE SOD 40 MG TABEC PO SCH (21:35)
[2018-07-29] MEDS: AZITHROMYCIN 500MG/NS 250 ML 250 ML IV SCH (21:35)
[2018-07-29] MEDS: CEFTRIAXONE SOD 1 GM/NS 50 ML 50 ML IV SCH (21:35)
[2018-07-30] VITALS (8 sets, daily range): BP systolic 107–137; BP diastolic 57–76
[2018-07-30] MEDS: ALBUTEROL/IPRATROPIUM 3 ML NEB NEB SCH ×4 (00:03→19:46)
[2018-07-30 05:57] LABS: BASOPHILS % 0.5 % (0.0-1.0); EOSINOPHILS # (AUTO) 0.2 (0.0-0.4); EOSINOPHILS % 4.1 % (0.0-6.0); HEMATOCRIT 29.5 % (34.2-44.1); HEMOGLOBIN 9.4 g/dL (12.0-16.0); LYMPHOCYTES # (AUTO) 1.5 (1.0-3.2); LYMPHOCYTES % 26.1 % (18.0-39.1); MEAN CORPUSCULAR HEMOGLOBIN 28.2 pg (28-32); MEAN CORPUSCULAR HGB CONC 31.9 g/dL (31-35); MEAN CORPUSCULAR VOLUME 88.6 fL (81-99); MONOCYTES # (AUTO) 0.3 (0.2-0.8); MONOCYTES % 5.5 % (4.4-11.3); NEUTROPHILS # (AUTO) 3.7 (2.1-6.9); NEUTROPHILS % 63.6 % (38.7-80.0); PLATELET COUNT 224 x10e3/uL (140-360); RED BLOOD COUNT 3.33 x10e6/uL (3.6-5.1); RED CELL DISTRIBUTION WIDTH 15.1 % (11.7-14.4)
[2018-07-30 06:15] LABS: INR 1.67
[2018-07-30 06:22] LABS: ANION GAP 10.5 mmol/L (8-16); BLOOD UREA NITROGEN 14 mg/dL (7-26); BUN/CREATININE RATIO 16 (6-25); CALCIUM 8.4 mg/dL (8.4-10.2); CARBON DIOXIDE 25 mmol/L (22-29); CHLORIDE 105 mmol/L (98-107); CREATININE, SERUM 0.85 mg/dL (0.57-1.11); EST GLOMERULAR FILTRATION RATE > 60 ML/MIN (60-); GLUCOSE 73 mg/dL (74-118); MAGNESIUM 1.8 MG/DL (1.3-2.1); POTASSIUM 3.5 mmol/L (3.5-5.1); SODIUM 137 mmol/L (136-145)
--- NOTE | 2018-07-30 06:55 | NUR ---
Report given to day nurse(Dirk) for continuity of care.
[2018-07-30] MEDS: INSULIN LISPRO 100 UNIT/1 ML 3ML VIAL SQ SCH ×7 (07:30→21:00)
[2018-07-30] MEDS: FERROUS GLUCONATE PO SCH (08:27)
[2018-07-30] MEDS: FAMOTIDINE 20 MG TAB PO SCH ×2 (08:44→18:14)
[2018-07-30] MEDS: DIGOXIN 0.125 MG TAB PO SCH (08:44)
[2018-07-30] MEDS: FUROSEMIDE 40 MG TAB PO SCH (08:44)
[2018-07-30] MEDS: POTASSIUM CHLORIDE 20 MEQ TAB CR PO SCH (08:44)
[2018-07-30] MEDS: INSULIN GLARGINE 100 UNITS/ML VIAL SQ SCH ×2 (08:45→22:50)
[2018-07-30] MEDS: MEMANTINE 10 MG TAB PO SCH (08:45)
[2018-07-30] MEDS: OYST-CAL-D 500MG TABLET PO SCH ×2 (08:45→18:15)
[2018-07-30] MEDS: RIVASTIGMINE TRANSDERMAL 9.5MG/24HOURS PATCH TD SCH (08:45)
[2018-07-30] MEDS: METOPROLOL TARTRATE 50 MG TAB PO SCH ×2 (08:45→17:00)
[2018-07-30] MEDS: LACTOBACILLUS ACIDOPHILUS CAPSULE PO SCH ×2 (08:45→18:15)
--- NOTE | 2018-07-30 08:45 | NUR ---
Pt received resting in bed with family at bedside. Alert and oriented x2, but Vietnamese speaking only. Oriented to staff and surroundings, encouraged to press call he if help needed. All meds given as ordered. Emotional support given. Fall precautions maintained. Will monitor
[2018-07-30] MEDS ORDERED: FUROSEMIDE INJ 10 MG/ML 4 ML VIAL IV ONE (10:15)
[2018-07-30] MEDS ORDERED: POTASSIUM CHLORIDE 20 MEQ TAB CR PO ONE (10:15)
--- NOTE | 2018-07-30 14:23 | NUR ---
HOME HEALTH DISCHARGE NOTE PATIENT ADDRESS WHERE SERVICE WILL BE RECEIVED: [address] [place] [id number] PATIENT CONTACT NUMBER: [phone] NAME OF HOME HEALTH COMPANY: [employer] TELEPHONE/FAX NUMBER OF COMPANY: OFF: [phone] / FAX: [phone] ADDRESS OF COMPANY: [employer] [address] [place] [id number] SERVICES TO RECEIVE: SN/PT/AGRICULTURAL EDUCATION PROFESSOR/HSE ANTICIPATED DATE SERVICES WILL BEGIN: 07/31/2018 Please call the company above if you have not received a call to schedule a home visit within 24 hours of discharge. Addendum: 07/31/18 at 1601 by Josie Dunn CM PT REMAINS INPT 07/31/2018. ANTICIPATED SOC: 08/01/2018
[2018-07-30] MEDS: WARFARIN SOD 5 MG TAB PO SCH (18:15)
--- NOTE | 2018-07-30 19:25 | NUR ---
Report received from morning nurse. Pt alert and orient to name. Pt sitting in bed, 90 degrees. Denies pain at this time. No acute distress noted. Family at bedside. Call he within reach. Will continue to monitor.
[2018-07-30] MEDS: CEFTRIAXONE SOD 1 GM/NS 50 ML 50 ML IV SCH (21:30)
[2018-07-30] MEDS: PANTOPRAZOLE SOD 40 MG TABEC PO SCH (21:30)
[2018-07-30] MEDS: METOPROLOL TARTRATE INJ 1 MG/ML VIAL IV PRN (21:55)
[2018-07-31] VITALS (8 sets, daily range): BP systolic 121–144; BP diastolic 55–88
[2018-07-31] MEDS: ALBUTEROL/IPRATROPIUM 3 ML NEB NEB SCH ×4 (01:23→20:30)
[2018-07-31] MEDS: METOPROLOL TARTRATE INJ 1 MG/ML VIAL IV PRN (04:30)
[2018-07-31 06:23] LABS: INR 2.07; PROTHROMBIN TIME 24.9 seconds (11.9-14.5)
[2018-07-31] MEDS: INSULIN LISPRO 100 UNIT/1 ML 3ML VIAL SQ SCH ×7 (07:30→21:00)
--- NOTE | 2018-07-31 08:30 | NUR ---
Pt received resting in bed. All meds crushed and given as ordered. Call he within reach. Will monitor
[2018-07-31] MEDS: FERROUS GLUCONATE PO SCH (08:33)
[2018-07-31] MEDS: DIGOXIN 0.125 MG TAB PO SCH (08:33)
[2018-07-31] MEDS: POTASSIUM CHLORIDE 20 MEQ TAB CR PO SCH (08:33)
[2018-07-31] MEDS: FUROSEMIDE 40 MG TAB PO SCH (08:33)
[2018-07-31] MEDS: FAMOTIDINE 20 MG TAB PO SCH ×2 (08:33→16:52)
[2018-07-31] MEDS: LACTOBACILLUS ACIDOPHILUS CAPSULE PO SCH ×2 (08:34→17:07)
[2018-07-31] MEDS: MEMANTINE 10 MG TAB PO SCH (08:34)
[2018-07-31] MEDS: OYST-CAL-D 500MG TABLET PO SCH ×2 (08:34→17:07)
[2018-07-31] MEDS: METOPROLOL TARTRATE 50 MG TAB PO SCH ×2 (08:34→17:07)
[2018-07-31] MEDS: INSULIN GLARGINE 100 UNITS/ML VIAL SQ SCH ×2 (08:34→21:45)
[2018-07-31] MEDS: RIVASTIGMINE TRANSDERMAL 9.5MG/24HOURS PATCH TD SCH (08:34)
--- NOTE | 2018-07-31 11:00 | NUR ---
Pt passed second MBS. Diet changed to Mechanical soft as ordered. Will monitor
[2018-07-31] MEDS: WARFARIN SOD 5 MG TAB PO SCH (17:06)
--- NOTE | 2018-07-31 19:15 | NUR ---
Report received from morning nurse. Pt alert and orient to name. Pt lying in bed HOB 60 degrees. No s/s of pain at this time. No acute distress noted. Family at bedside. Call eh within reach. Will continue to monitor.
[2018-07-31] MEDS: PANTOPRAZOLE SOD 40 MG TABEC PO SCH (21:45)
[2018-07-31] MEDS: CEFTRIAXONE SOD 1 GM/NS 50 ML 50 ML IV SCH (21:45)
--- NOTE | 2018-07-31 22:30 | NUR ---
22g IV right AC leaking, removed, pt tolerated well. Admin new 22g IV left FA, pt tolerated well.
[2018-08-01] VITALS: BP 127/75
[2018-08-01] MEDS: ALBUTEROL/IPRATROPIUM 3 ML NEB NEB SCH ×2 (02:00→07:00)
[2018-08-01 04:00] VITALS: BP 116/74
[2018-08-01 06:07] LABS: BASOPHILS % 0.5 % (0.0-1.0); EOSINOPHILS # (AUTO) 0.4 (0.0-0.4); EOSINOPHILS % 5.7 % (0.0-6.0); HEMATOCRIT 33.1 % (34.2-44.1); HEMOGLOBIN 10.9 g/dL (12.0-16.0); LYMPHOCYTES # (AUTO) 2.2 (1.0-3.2); LYMPHOCYTES % 29.9 % (18.0-39.1); MEAN CORPUSCULAR HEMOGLOBIN 28.9 pg (28-32); MEAN CORPUSCULAR HGB CONC 32.9 g/dL (31-35); MEAN CORPUSCULAR VOLUME 87.8 fL (81-99); MONOCYTES # (AUTO) 0.4 (0.2-0.8); MONOCYTES % 5.4 % (4.4-11.3); NEUTROPHILS # (AUTO) 4.3 (2.1-6.9); NEUTROPHILS % 58.1 % (38.7-80.0); PLATELET COUNT 284 x10e3/uL (140-360); RED BLOOD COUNT 3.77 x10e6/uL (3.6-5.1)
[2018-08-01 06:10] LABS: INR 2.3
[2018-08-01 06:17] LABS: ANION GAP 10.6 mmol/L (8-16); CALCIUM 9.6 mg/dL (8.4-10.2); CREATININE, SERUM 1.02 mg/dL (0.57-1.11); POTASSIUM 3.6 mmol/L (3.5-5.1)
--- NOTE | 2018-08-01 06:25 | NUR ---
Admin 4oz orange juice with 1g sugar for low BS 52.
--- NOTE | 2018-08-01 07:00 | NUR ---
SHIFT REPORT GIVEN BY NIGHT RN WHILE ROUNDING BS. PT DENIES NEEDS AT THIS TIME.
[2018-08-01] MEDS: INSULIN LISPRO 100 UNIT/1 ML 3ML VIAL SQ SCH ×4 (07:30→11:30)
[2018-08-01 08:00] VITALS: BP 149/70
[2018-08-01] MEDS: FERROUS GLUCONATE PO SCH (08:34)
[2018-08-01] MEDS: FAMOTIDINE 20 MG TAB PO SCH (08:44)
[2018-08-01] MEDS: DIGOXIN 0.125 MG TAB PO SCH (08:44)
[2018-08-01] MEDS: FUROSEMIDE 40 MG TAB PO SCH (08:44)
[2018-08-01] MEDS: POTASSIUM CHLORIDE 20 MEQ TAB CR PO SCH (08:44)
[2018-08-01] MEDS: RIVASTIGMINE TRANSDERMAL 9.5MG/24HOURS PATCH TD SCH (08:45)
[2018-08-01] MEDS: OYST-CAL-D 500MG TABLET PO SCH (08:45)
[2018-08-01] MEDS: METOPROLOL TARTRATE 50 MG TAB PO SCH (08:45)
[2018-08-01] MEDS: MEMANTINE 10 MG TAB PO SCH (08:45)
[2018-08-01] MEDS: LACTOBACILLUS ACIDOPHILUS CAPSULE PO SCH (08:45)
[2018-08-01] MEDS: INSULIN GLARGINE 100 UNITS/ML VIAL SQ SCH (08:47)
[2018-08-01 09:00] VITALS: BP 149/70
--- NOTE | 2018-08-01 11:22 | Diagnostic Imaging Report ---
PROCEDURE: X-RAY MODIFIED BARIUM SWALLOW COMPARISON: Modified barium swallow 07/18/2018. INDICATION: Difficulty swallowing Radiation Details: Fluoroscopy time: 2.6 minutes Cumulative dose: 14.7 mGy DISCUSSION: Fluoroscopic examination was performed in conjunction with speech pathology during swallowing a variety of thin and thick liquid consistencies. Provided images demonstrate laryngeal penetration without aspiration. Trace vallecular and pyriform sinus residue is noted. CONCLUSION: Modified barium swallow demonstrating laryngeal penetration without aspiration. Please refer to the speech pathology report for further details. Signed by: Dr. Gautam Levi MD on 08/01/2018 11:19 AM
[2018-08-01] MEDS ORDERED: CEFDINIR300 MG PO (13:43)
[2018-08-01] MEDS ORDERED: LANTUS 3ML100 UNITS/ SQ (14:07)
[2018-08-01] MEDS ORDERED: HUMALOG100 UNIT/3 SQ (14:08)
[2018-08-01] MEDS ORDERED: INSULIN LISPRO 100 UNIT/1 ML 3ML VIAL SQ SCH (16:30)
[2018-08-01] MEDS ORDERED: INSULIN GLARGINE 100 UNITS/ML VIAL SQ SCH (21:00)
== END 2018-08-01 14:54 | disposition home or self-care (01) | DRG 871 ==
LOC: ER 18:38 → ERHOLD 21:09 → MED/SURG3 22:14 → OBSVTOIN 07-26 09:36
PROVIDERS: ADMIT Internal Medicine; ATTEND Internal Medicine
DX: A41.9 Sepsis, unspecified organism (principal); J69.0 Pneumonitis due to inhalation of food and vomit; G93.41 Metabolic encephalopathy; N17.9 Acute kidney failure, unspecified; I13.0 Hypertensive heart and chronic kidney disease with heart failure and stage 1 through stage 4 chronic kidney disease, or unspecified chronic kidney disease; I50.32 Chronic diastolic (congestive) heart failure; F03.90 Unspecified dementia, unspecified severity, without behavioral disturbance, psychotic disturbance, mood disturbance, and anxiety; E11.22 Type 2 diabetes mellitus with diabetic chronic kidney disease; N18.3 Chronic kidney disease, stage 3 (moderate); Z79.4 Long term (current) use of insulin; E83.51 Hypocalcemia; I48.91 Unspecified atrial fibrillation; Z79.01 Long term (current) use of anticoagulants; E11.42 Type 2 diabetes mellitus with diabetic polyneuropathy; R65.20 Severe sepsis without septic shock
CPT/HCPCS: 36415; 70450; 71045; 74230; 80048; 80053; 81001; 82140; 82150; 82550; 82553; 82948; 83036; 83518; 83605; 83690; 83735; 83880; 84145; 84439; 84443; 84484; 85025; 85610; 85730; 87040; 87070; 87081; 87086; 87400; 93005; 94640; 96372; 97139; 99284; G0378; J0456; J0696; J1815; J1940; J3370; J7030; J7799

== ENCOUNTER 2018-08-24 10:03 | Inpatient (IN) | payer MEDICARE, OTHER ==
[~2018-08-24] VITALS: Ht 160 cm; Wt 63.5 kg
[~2018-08-24 10:03] MED LIST changes: +CEFDINIR300 MG PO; +HUMALOG100 UNIT/3 SQ; +LANTUS 3ML100 UNITS/ SQ; +NAMENDA10 MG PO; +RIVASTIGMINE TOP
--- NOTE | 2018-08-24 10:34 | NUR ---
Informed the patient that we would provide the assembly machine operator services and the patient stated she would prefer for her daughter to translate. Informed her that if there were any procedures that required informed consent that we would have to use the assembly machine operator. Pt and daughter verbalized understanding.
[2018-08-24 11:10] LABS: BASOPHILS # (AUTO) 0.1 (0.0-0.1); BASOPHILS % 0.6 % (0.0-1.0); EOSINOPHILS # (AUTO) 0.1 (0.0-0.4); EOSINOPHILS % 1.3 % (0.0-6.0); HEMATOCRIT 33.5 % (34.2-44.1); HEMOGLOBIN 10.6 g/dL (12.0-16.0); LYMPHOCYTES % 21.9 % (18.0-39.1); MEAN CORPUSCULAR HEMOGLOBIN 28.9 pg (28-32); MEAN CORPUSCULAR HGB CONC 31.6 g/dL (31-35); MEAN CORPUSCULAR VOLUME 91.3 fL (81-99); MONOCYTES # (AUTO) 0.4 (0.2-0.8); MONOCYTES % 4.2 % (4.4-11.3); NEUTROPHILS # (AUTO) 6.4 (2.1-6.9); NEUTROPHILS % 71.8 % (38.7-80.0); PLATELET COUNT 297 x10e3/uL (140-360); RED BLOOD COUNT 3.67 x10e6/uL (3.6-5.1)
[2018-08-24 11:23] LABS: INR 1.22
[2018-08-24 11:25] LABS: ABG HCO3 20 mmol/L (23-28); ABG PCO2 35 mmHg (41-51); ABG PH 7.37 (7.31-7.41); ABG PO2 96 mmHg (80-105)
[2018-08-24 11:30] LABS: ALBUMIN 3.1 g/dL (3.5-5.0); ALBUMIN/GLOBULIN RATIO 0.7 (0.8-2.0); ANION GAP 16.7 mmol/L (8-16); CALCIUM 9.5 mg/dL (8.4-10.2); CREATININE, SERUM 1.36 mg/dL (0.57-1.11); POTASSIUM 3.7 mmol/L (3.5-5.1)
[2018-08-24 11:34] LABS: CLARITY,URINE HAZY (CLEAR); COLOR,URINE YELLOW (YELLOW); LEUKOCYTE ESTERASE ,URINE 2+ (NEGATIVE)
[2018-08-24 11:35] LABS: BILIRUBIN,URINE NEGATIVE (NEGATIVE); KETONES,URINE TRACE (NEGATIVE); NITRITE,URINE NEGATIVE (NEGATIVE); PROTEIN,URINE DIPSTICK 1+ (NEGATIVE); URINE UROBILINOGEN 0.2 mg/dL (0.2 - 1)
[2018-08-24 11:39] LABS: CREATINE KINASE MB 1.2 ng/mL (0-5.0)
[2018-08-24] MEDS ORDERED: DEXTROSE 50% SYRINGE 50 ML IV ONE ×2 (11:39→12:00)
[2018-08-24 11:48] LABS: BACTERIA,URINE MODERATE /HPF; EPITHELIAL CELLS,URINE MODERATE /LPF; RBC,URINE 0-5 /HPF (0-5)
[2018-08-24 11:49] LABS: MUCUS,URINE FEW (RARE)
[2018-08-24] MEDS ORDERED: DEXTROSE 5% 1,000 ML IV ONE ×2 (13:05→15:00)
--- NOTE | 2018-08-24 13:17 | Diagnostic Imaging Report ---
EXAM: CHEST SINGLE (PORTABLE) DATE: 08/24/2018 10:08 AM INDICATION: Shortness of breath COMPARISON: Chest x-ray, 07/29/2018 FINDINGS: Lines and tubes: None Cardiac silhouette is moderately enlarged. There is increased airspace opacity throughout the right lung. Pulmonary vascular prominence is seen bilaterally. Haziness in the lower right chest suggests right pleural effusion. No pneumothorax. Upper abdomen unremarkable. No acute bony abnormality. IMPRESSION: Increased patchy airspace opacity throughout the right lung with small right pleural effusion. There is underlying pulmonary vascular congestion with cardiomegaly. Findings likely represent worsening congestive failure and pulmonary edema, although in the proper clinical setting multifocal pneumonia in the right lung is also a consideration. Signed by: Dr. Giorgi Gordon M.D. on 08/24/2018 1:13 PM
[2018-08-24] MEDS ORDERED: FUROSEMIDE INJ 10 MG/ML 4 ML VIAL IV ONE (13:30)
--- NOTE | 2018-08-24 14:09 | NUR ---
pt voided earlier used bedpan; pt very exhausted, md notified; new lalitha suction urine pad placed to sx with explaination to pt and family. pt groin with dry lession blister like scabbing noted and md escorted in room and viewed. pt denies hx of herpes, denies pain denies itching.
[2018-08-24] MEDS ORDERED: IPRATROPIUM BROMIDE 0.02% 2.5 ML NEB INH PRN ×2 (14:45→15:00)
[2018-08-24] MEDS ORDERED: DIGOXIN 0.125 MG TAB PO SCH (14:45)
[2018-08-24] MEDS ORDERED: AZITHROMYCIN 500MG/NS 250 ML 250 ML IV SCH (15:00)
[2018-08-24] MEDS ORDERED: CEFTRIAXONE SOD 1 GM/NS 50 ML 50 ML IV SCH ×2 (15:00→21:00)
[2018-08-24] MEDS ORDERED: DEXTROSE 50% SYRINGE 50 ML IV PRN (15:00)
[2018-08-24] MEDS ORDERED: SODIUM CHLORIDE FLUSH 10 ML SYR INJ PRN (15:00)
[2018-08-24] MEDS ORDERED: METOPROLOL TARTRATE INJ 1 MG/ML VIAL IV ONE (15:30)
[2018-08-24] MEDS: INSULIN LISPRO 100 UNIT/1 ML 3ML VIAL SQ SCH ×2 (16:30→21:46)
[2018-08-24] MEDS ORDERED: METOPROLOL TARTRATE 50 MG TAB PO SCH (17:00)
[2018-08-24 17:13] VITALS: BP 122/84
[2018-08-24 17:15] VITALS: BP 122/84
[2018-08-24 17:30] VITALS: BP 122/84
[2018-08-24] MEDS: FUROSEMIDE INJ 10 MG/ML 4 ML VIAL IV SCH (18:51)
[2018-08-24] MEDS: METOPROLOL TARTRATE 50 MG TAB PO SCH (18:51)
[2018-08-24] MEDS: WARFARIN SOD 2 MG TAB PO SCH (18:52)
[2018-08-24 19:59] VITALS: BP 111/70
--- NOTE | 2018-08-24 20:24 | NUR ---
Report received from AM RN. Patient alert/oriented weak lying on bed with Mongolian speaking. Daughter at the bedside. Denied pain, had SOB with continuing 5liters o2 via nasal canula. Assisted to connected BIPAP. Assisted to changed diaper and applied new purewick, patient tolerated well. Bed in lower position,locked. Call he within reach. Will continue to monitor.
[2018-08-24 20:35] LABS: CREATINE KINASE MB 1.3 ng/mL (0-5.0)
[2018-08-24 20:49] LABS: ALBUMIN/GLOBULIN RATIO 0.7 (0.8-2.0); ANION GAP 19.6 mmol/L (8-16); CALCIUM 9.4 mg/dL (8.4-10.2); CREATININE, SERUM 1.32 mg/dL (0.57-1.11); POTASSIUM 3.6 mmol/L (3.5-5.1)
[2018-08-24 21:00] VITALS: BP 111/70
[2018-08-24] MEDS ORDERED: PANTOPRAZOLE SOD 40 MG TABEC PO SCH ×2 (21:00)
[2018-08-24] MEDS: METOPROLOL TARTRATE INJ 1 MG/ML VIAL IV PRN (21:45)
[2018-08-24] MEDS: AZITHROMYCIN 500MG/NS 250 ML 250 ML IV SCH (21:45)
--- NOTE | 2018-08-24 22:35 | Consultation ---
DATE OF CONSULTATION: 08/24/2018 Pulmonary Critical Care Consultation CHIEF COMPLAINT: Worsening dyspnea and congestion. HISTORY OF PRESENT ILLNESS: The patient is an 88-year-old woman. She has been hospitalized twice at [facility] in 2019. On the first time, she had atrial fibrillation and congestive heart failure along with aspiration pneumonia. She required mechanical ventilation. She subsequently amend to medical resource and then had to be readmitted when she became somewhat obtunded. She was subsequently discharged and was at home on oral medications. Family noticed increasing congestion and tachypnea. They felt she was having more trouble breathing. They increased her Lasix and gave her 40 mg twice a day for three days, but she did not urinate much and she continued to have trouble breathing. She did not have chest pain or fevers. She subsequently came to the hospital. The chest x-ray showed pulmonary edema and the EKG showed atrial fibrillation with a rapid ventricular rate. PAST MEDICAL HISTORY: 1. Atrial fibrillation. 2. Congestive heart failure. 3. History of aspiration pneumonia. 4. Diabetes. PAST SURGICAL HISTORY: Noncontributory. SOCIAL HISTORY: The patient is not a smoker or drinker. She has 12 children. She was originally from [place]. ALLERGIES: THE PATIENT HAS NO KNOWN DRUG ALLERGIES. REVIEW OF SYSTEMS: She has no fever. She has no headache. She is not complaining of any neck pain. She has no chest pain. She is not having any wheezing. She does have some dyspnea. She has no abdominal pain. There is no nausea or vomiting. She has some leg edema. PHYSICAL EXAMINATION: VITAL SIGNS: The blood pressure is 98/77 and the saturation is 100%. The heart rate is irregularly irregular in 120 to 130. HEENT: Shows no facial swelling or erythema. She has a BiPAP in place. LYMPHATIC: Shows no submandibular, cervical, or supraclavicular adenopathy. CARDIAC: Reveals regular rate and rhythm with normal S1 and S2. LUNGS: Auscultation of lungs reveal crackles in both lung loyola. ABDOMEN: Soft and nontender. There is no rebound or guarding. EXTREMITIES: Show 2+ leg edema. LABORATORY DATA: BUN to creatinine ratio is 19 to 1.36. The other electrolytes are within normal limits. The BNP is 848. The white blood cell count is 8.9, and the hemoglobin is 10.6. The platelet count is 297. The blood gas is 7.37, 35, and 96, and the bicarbonate is 20. RADIOGRAPHIC DATA: Chest x-ray shows bilateral infiltrates consistent with worsening congestive heart failure. IMPRESSION: 1. Uchts-py-wuioryo respiratory failure. 2. Fbhhe-qp-bjqyvzs systolic congestive heart failure. 3. Atrial fibrillation with rapid ventricular response. 4. Hypoglycemia. PLAN: 1. The patient will be started on IV Lasix. 2. Wean BiPAP after the patient is diuresed. 3. Continue anticoagulation. 4. Discuss potential treatments for atrial fibrillation with Cardiology. 5. Overall prognosis is guarded. 6. Case discussed with family, Cardiology, and Emergency Department. Con Urbina MD [facility]/[place] /[id number]
[2018-08-25] VITALS (7 sets, daily range): BP systolic 103–116; BP diastolic 62–82
--- NOTE | 2018-08-25 01:21 | Consultation ---
DATE OF CONSULTATION: 08/24/2018 Consultation Note REASON FOR CONSULTATION: AFib with RVR and shortness of breath. HISTORY OF PRESENT ILLNESS: This is an 46-num[age]we-female, well known to practice with a history of AFib, hypertension, diabetes, mild dementia, and peripheral neuropathy. The patient of note has had multiple admissions due to viral issues from pneumonia and AFib with RVR, very symptomatic when she becomes AFib with RVR. Has been multiple medications for rhythm control. However, the patient was recently discharged way last month, was doing okay at home. However, in the past 2 to 3 days, has increased shortness of breath. In fact, the patient's daughter called the office and reported that her mother's heart was elevated in the 120s. The patient's daughter was told to increase the metoprolol regimen and if continued with shortness of breath to go to the ER further evaluation. However, the patient subsequently came to the ER because of worsening shortness of breath, and was noted in AFib with RVR. Cardiology was consulted. The patient stayed in the ER on BiPAP, has received Lasix IV due to her pulmonary congestion shown on x-ray. Apparently, the patient is comfortable. No reports of chest pain. PAST MEDICAL HISTORY: 1. Chronic AFib. 2. Hypertension. 3. Diabetes. 4. Peripheral neuropathy. 5. Hyperlipidemia. 6. Asthma. 7. Mild dementia. 8. Debility. PAST SURGICAL HISTORY: Cholecystectomy. FAMILY HISTORY: Mother at the age of 86 with apparently history of hypertension. Father at the age of 70 with a history of gallbladder disease. SOCIAL HISTORY: She is . She lives with her family. No alcohol use or tobacco use. HOME MEDICATIONS: Include warfarin 4 mg 5 days a week and 2 mg two days a week, Norvasc 5 mg once a day, Lasix 40 mg once a day, metformin 50 mg once a day, metoprolol 100 mg b.i.d., gabapentin 100 mg once a day, omeprazole 20 mg once a day, and ranitidine once a day. ALLERGIES: NO KNOWN ALLERGIES. REVIEW OF SYSTEMS: Unable to obtain since the patient is on BiPAP, however, there is positive shortness of breath, palpitation, and lower extremity swelling. Denied any fever or chills. PHYSICAL EXAMINATION: VITAL SIGNS: Current vital signs, temperature 97.8, pulse 102, respiratory rate 20, blood pressure 109/70, and pulse ox 100% on BiPAP. GENERAL: She is on BiPAP, follows commands. SKIN: No rashes or bruises noted. HEENT: Normocephalic. Pupils are equal and reactive. Extraocular movements intact. Oral mucosa pink. NECK: Positive JVD. No thyromegaly. No carotid bruits noted. HEART: Irregular rate and rhythm, tachycardic, slight systolic murmur. LUNGS: Bilateral breath sounds with crackles. ABDOMEN: Soft, nontender, and nondistended. No organomegaly noted. MUSCULOSKELETAL: Moves all extremities. VASCULAR: +2 bilateral radial pulses, +2 DT/PT pulses bilaterally, and +1 lower extremity edema. NEUROLOGIC: Unable to assess, as the patient is on BiPAP, however, does follow commands. LABS: White count 8.9, hemoglobin 10.6, hematocrit 33, and platelets 297. Sodium 138, potassium 3.7, chloride 103, bicarb 22, BUN 19, and creatinine 1.3. Troponin 0.018. BNP 848. INR 1.2. UA showing +2 leukocyte esterase, trace ketones, +1 protein, white count 6 to 10, and moderate bacteria. Chest x-ray showing pulmonary vascular congestion and cardiomegaly. EKG showing AFib with RVR, heart rate 118. ASSESSMENT: 1. Atrial fibrillation with rapid ventricular response. 2. Acute diastolic heart failure. 3. Respiratory failure, on rescue BiPAP. 4. Hypertension. 5. Diabetes. 6. Mild dementia and urinary tract infection. PLAN: 1. The patient presents with multiple admissions, secondary to AFib with RVR and has been on rate control therapy and oral anticoagulation therapy. However, it has been very difficult to control her heart rate, has been having frequent episodes of AFib with RVR with shortness of breath. Long discussion with the patient's daughter and son regarding advanced therapy such as ablation with pacemaker. Family is interested in those type of therapies. However, given the limitations of this hospital, we will continue medical therapy. Continue the patient's Coumadin therapy. 2. Continue the patient's beta taina and digoxin therapy. 3. We will give the patient Lasix. 4. We will continue to monitor the patient and adjust cardiac therapy as clinical course dictates. Thank you very much. Dictated by Moncho Mays, REPRESENTATIVE PHLEBOTOMY SERVICES Stacie Salinas MD [facility]/[place] /[id number]
--- NOTE | 2018-08-25 02:05 | NUR ---
Patient assisted to use bedside commode,patient tolerated well with 5liters o2 via nasal canula,no SOB noted. Assisted to put her back to bed and Connected to BIPAP at this time. Will continue to monitor.
[2018-08-25] MEDS: METOPROLOL TARTRATE INJ 1 MG/ML VIAL IV PRN (02:11)
[2018-08-25 05:47] LABS: BASOPHILS % 0.4 % (0.0-1.0); EOSINOPHILS # (AUTO) 0.1 (0.0-0.4); EOSINOPHILS % 1.9 % (0.0-6.0); HEMATOCRIT 30.8 % (34.2-44.1); HEMOGLOBIN 9.8 g/dL (12.0-16.0); LYMPHOCYTES # (AUTO) 1.7 (1.0-3.2); MEAN CORPUSCULAR HEMOGLOBIN 28.5 pg (28-32); MEAN CORPUSCULAR HGB CONC 31.8 g/dL (31-35); MEAN CORPUSCULAR VOLUME 89.5 fL (81-99); MONOCYTES # (AUTO) 0.3 (0.2-0.8); MONOCYTES % 3.7 % (4.4-11.3); NEUTROPHILS # (AUTO) 5.2 (2.1-6.9); NEUTROPHILS % 70.6 % (38.7-80.0); PLATELET COUNT 229 x10e3/uL (140-360); RED BLOOD COUNT 3.44 x10e6/uL (3.6-5.1); RED CELL DISTRIBUTION WIDTH 17.1 % (11.7-14.4)
[2018-08-25 06:10] LABS: CREATINE KINASE MB 0.9 ng/mL (0-5.0)
[2018-08-25 06:24] LABS: ALBUMIN 2.7 g/dL (3.5-5.0); ALBUMIN/GLOBULIN RATIO 0.7 (0.8-2.0); ANION GAP 14.2 mmol/L (8-16); CALCIUM 8.8 mg/dL (8.4-10.2); CREATININE, SERUM 1.23 mg/dL (0.57-1.11); POTASSIUM 3.2 mmol/L (3.5-5.1)
--- NOTE | 2018-08-25 06:44 | NUR ---
Notified Dr. starkey about critical lab. ordered po potassium 40meq once at this time.
[2018-08-25] MEDS ORDERED: POTASSIUM CHLORIDE 20 MEQ TAB CR PO ONE (06:45)
--- NOTE | 2018-08-25 07:01 | NUR ---
Report given to RN,walking round done.
--- NOTE | 2018-08-25 07:28 | Diagnostic Imaging Report ---
EXAMINATION: CHEST SINGLE (PORTABLE) COMPARISON: Chest x-ray 08/24/2018 INDICATION: ^CHF ^[id number] ^0550 ^Y DISCUSSION: Frontal view of the chest obtained at 0631 hours. HEART AND MEDIASTINUM: Stable cardiomegaly and aortic ectasia LINES: None. LUNGS: Diffuse alveolar airspace opacities are similar. Lung volumes are low. Calcifications throughout the tracheobronchial tree. PLEURA: Small bilateral pleural effusions. No pneumothorax. BONES AND SOFT TISSUES: No focal osseous lesion. The soft tissues are normal. IMPRESSION: No change in pulmonary infiltrates and small pleural effusions. This could represent pulmonary edema or multifocal pneumonia. Signed by: Dr. Eloise Mcnally MD on 08/25/2018 7:25 AM
[2018-08-25] MEDS: INSULIN LISPRO 100 UNIT/1 ML 3ML VIAL SQ SCH ×3 (07:30→16:39)
[2018-08-25 07:42] LABS: INR 1.29; PROTHROMBIN TIME 16.7 seconds (11.9-14.5)
[2018-08-25] MEDS: FUROSEMIDE INJ 10 MG/ML 4 ML VIAL IV SCH ×2 (08:39→16:43)
[2018-08-25] MEDS: METOPROLOL TARTRATE 50 MG TAB PO SCH ×2 (08:49→16:43)
[2018-08-25] MEDS ORDERED: MEMANTINE 10 MG TAB PO SCH (09:00)
[2018-08-25] MEDS ORDERED: ACETAMINOPHEN 325 MG TAB PO PRN (09:30)
[2018-08-25] MEDS ORDERED: ONDANSETRON HCL INJ 2MG/ML 2ML 2 MG/ML VIAL IV PRN (09:30)
--- NOTE | 2018-08-25 10:15 | NUR ---
pt resting in bed, family at bedside. pt able to maintain sats >90% on 5lpm HFNC when off bipap to eat. pt able to stand by assist to BSC. continues to remain afib with HR 120-130s sustaining. Jinny DISTRICT COMMERCIAL SUPERINTENDENT on unit and aware. will continue to monitor.
[2018-08-25] MEDS: LEVALBUTEROL HCL SOLN NEBU 0.63 MG/3 ML NEB INH SCH ×3 (11:23→19:45)
[2018-08-25] MEDS: POTASSIUM CHLORIDE 20 MEQ TAB CR PO SCH ×2 (11:39→16:43)
[2018-08-25] MEDS: IPRATROPIUM BROMIDE 0.02% 2.5 ML NEB NEB SCH ×3 (13:26→19:45)
[2018-08-25 14:11] LABS: CREATINE KINASE MB 0.8 ng/mL (0-5.0)
[2018-08-25] MEDS: WARFARIN SOD 2 MG TAB PO SCH (16:43)
--- NOTE | 2018-08-25 17:02 | Progress Note ---
DATE: 08/25/2018 Pulmonary Critical Care Progress Note SUBJECTIVE: The patient had some diuresis with Lasix. She feels better. She is on a nasal cannula at 5 L. PHYSICAL EXAMINATION: VITAL SIGNS: The blood pressure is 112/62 and the heart rate is 110-120 with irregularly irregular rhythm. She is saturating 100% on 5 L. HEENT: Shows no facial swelling or erythema. CARDIAC: Reveals regular rate and rhythm with normal S1, S2. LUNGS: Auscultation of lungs reveals a few crackles in both lung loyola. ABDOMEN: Soft, nontender. There is no rebound or guarding. There is no leg edema or calf tenderness. LABORATORY DATA: White blood cell count is 7.3 and hemoglobin is 9.8. Platelet count is 229. BUN to creatinine ratio is 20:1.23. Potassium is 3.2. RADIOGRAPHIC DATA: Chest x-ray shows pulmonary infiltrates and small pleural effusions. IMPRESSION: 1. Acute on chronic systolic congestive heart failure. 2. Atrial fibrillation with rapid ventricular response. 3. Hypoglycemia. PLAN: 1. Continue the IV Lasix. 2. Continue warfarin and digoxin. 3. Family is considering an ablation and pacemaker. 4. Physical therapy. Con Urbina MD [facility]/[place] /[id number]
--- NOTE | 2018-08-25 18:25 | NUR ---
Order received for bedside swallow evaluation. Will f/u Monday.
--- NOTE | 2018-08-25 19:07 | NUR ---
Report received from AM nurse. Patient received alert/oriented x3,sitting on the edge of the bed. Denied pain, SOB noted with 5liters oxygen via nasal canula. Patient asked to sit in the bed and offered BIPAP, patient refused at this time. grand daughter in the room. Bed in lower position,locked. Call he within reach. Will continue to monitor.
[2018-08-25] MEDS: AZITHROMYCIN 500MG/NS 250 ML 250 ML IV SCH (20:11)
[2018-08-25] MEDS ORDERED: SODIUM CHLORIDE 0.9% 1000ML 1,000 ML ONE (20:58)
[2018-08-25] MEDS ORDERED: SODIUM CHLORIDE 0.9% 1000ML 2,000 ML ONE (20:59)
[2018-08-25] MEDS ORDERED: NOREPINEPHRINE 8 MG/D5W 250 ML 250 ML ONE (21:05)
--- NOTE | 2018-08-25 22:36 | NUR ---
At 2033, patient's daughter called the light, went to room she stated "my mom looks different". Upon assessment, the Patient had SOB and face pale and difficulty breathing, not responding verbal stimuli. Assisted patient back to bed reconnected BIPAP. Blood sugar assessed with reading 143. BP:63/53 and HR:117, Spo2:86 and Resp:22. Called RT and charge nurse. Rapid response was initiated then code blue was called. Team arrived and assessed patient. Patient had agonal breathing unable to obtain BP and SPo2 HR 57. Patient's daughter refused intubation at Doctor's suggestion. Central line and CPR initiated. Code team unable to resuscitate patient. ER physician pronounced at 2150. Attending physician and consults were notified regarding change in patient condition. [facility] notified. Family at the bedside, waiting for more family members to determine home.
--- NOTE | 2018-08-26 01:54 | NUR ---
[facility] sign the paper and took the patient body at 0201. Addendum: 08/26/18 at 0224 by Dot Kam RN wrong charting
--- NOTE | 2018-08-26 02:24 | NUR ---
[facility] sign the paper and took the patient body at 0201.
--- NOTE | 2018-08-26 13:51 | Discharge Summary ---
SUMMARY The patient on 08/25/2018 at 9:50. She was pronounced by ER doctor. ADMISSION DIAGNOSES: Acute hypoxic respiratory failure, atrial fibrillation, type 2 diabetes, hypertension, hypokalemia, dementia, urinary tract infection, acute diastolic congestive heart failure, acute kidney injury on chronic kidney disease 3. DISCHARGE DIAGNOSES: Acute hypoxic respiratory failure, atrial fibrillation, type 2 diabetes, hypertension, hypokalemia, dementia, urinary tract infection, acute diastolic congestive heart failure, acute kidney injury on chronic kidney disease 3, respiratory failure. HISTORY: The patient has a history of AFib, type 2 diabetes, hypertension, dementia, CKD 3. SURGICAL HISTORY: Cholecystectomy. FAMILY HISTORY: The patient's daughter and sister have diabetes. SOCIAL HISTORY: Noncontributory. HOSPITAL COURSE: An 88-year-old female admitted for bilateral lower extremity that began on Monday and shortness of breath that began the day prior to admission. She denies cough, congestion, fever, nausea, vomiting, or sick contacts. HPI and history as per the patient's family as the patient was confused. On admission, the patient was found to be in AFib, RVR. Cardiology had a talk with the patient's family regarding a possible ablation with pacemaker, they were to follow up. The patient's beta-taina and digoxin were continued. The patient was started on Lasix and was weaned off BiPAP. Pulmonary was consulted. The patient was started on Zithromax and Rocephin IV. Chest x-ray on admission showed increased patchy airspace opacity throughout the right lung with small right effusion. There is underlying pulmonary vascular congestion with cardiomegaly. Findings represent worsening heart failure and pulmonary edema. The patient was weaned off BiPAP pretty quickly and was tolerating 5 L nasal cannula throughout most of the day. The patient was afebrile. WBC 7.32, hemoglobin 9.8. According to the nurse, on the night of 08/25/2018, the patient was transferring from the bedside commode and started having shortness of breath. They offered to put her on the BiPAP and the patient refused, the patient's daughter was at bedside, who also refused, then the rapid was called. The patient was placed on a non-rebreather. The patient was not responding. Bolus was ordered. Family refused intubation. ER doctor placed a central line and started levophed and epi. Pulse was lost at 2124 hours, CPR was started, epi and bicarb. Pulse returned at 2151 hours, but family wished to stop the code. Time of 2151 hours. Dictated by Jinny Smith, PASTING MACHINE OFFBEARER MD BEATA Maynard/MODL /[id number]
[2018-08-26] MEDS ORDERED: EPINEPHRINE HCL SYRINGE ONE (15:30)
[2018-08-26] MEDS ORDERED: SODIUM BICARBONATE 8.4% INJ 50 ML SYR ONE (15:30)
[2018-08-26] MEDS ORDERED: ETOMIDATE 40 MG/ 20ML VIAL IV ONE (19:22)
[2018-08-26] MEDS ORDERED: SUCCINYLCHOLINE CHLORIDE 20 MG/ML 10ML VIAL ONE (19:22)
== END 2018-08-25 21:51 | disposition expired | DRG 189 ==
LOC: ER 10:03 → ERHOLD 14:25 → IMCU 16:15
PROVIDERS: ADMIT Internal Medicine; ATTEND Internal Medicine
PROC: 5A09357 Assistance with Respiratory Ventilation, Less than 24 Consecutive Hours, Continuous Positive Airway Pressure (ICD-10-PCS; principal; 2018-08-25)
PROC: 5A12012 Performance of Cardiac Output, Single, Manual (ICD-10-PCS; 2018-08-25)
PROC: 02HV33Z Insertion of Infusion Device into Superior Vena Cava, Percutaneous Approach (ICD-10-PCS; 2018-08-25)
PROC: B548ZZA Ultrasonography of Superior Vena Cava, Guidance (ICD-10-PCS; 2018-08-25)
DX: J96.21 Acute and chronic respiratory failure with hypoxia (principal); I50.23 Acute on chronic systolic (congestive) heart failure; I13.0 Hypertensive heart and chronic kidney disease with heart failure and stage 1 through stage 4 chronic kidney disease, or unspecified chronic kidney disease; N17.9 Acute kidney failure, unspecified; N39.0 Urinary tract infection, site not specified; R57.0 Cardiogenic shock; N18.3 Chronic kidney disease, stage 3 (moderate); E11.22 Type 2 diabetes mellitus with diabetic chronic kidney disease; F03.90 Unspecified dementia, unspecified severity, without behavioral disturbance, psychotic disturbance, mood disturbance, and anxiety; E87.6 Hypokalemia; Z90.49 Acquired absence of other specified parts of digestive tract; Z83.3 Family history of diabetes mellitus; E11.42 Type 2 diabetes mellitus with diabetic polyneuropathy; Z87.01 Personal history of pneumonia (recurrent); I48.2 Chronic atrial fibrillation; E78.5 Hyperlipidemia, unspecified; Z82.49 Family history of ischemic heart disease and other diseases of the circulatory system; E11.649 Type 2 diabetes mellitus with hypoglycemia without coma; R53.81 Other malaise; Z79.4 Long term (current) use of insulin
CPT/HCPCS: 36415; 36600; 71045; 80053; 81001; 82550; 82553; 82805; 82948; 83880; 84443; 84484; 85025; 85610; 85730; 87086; 92950; 93005; 94640; 94660; 96372; 99285; J0171; J0330; J0456; J0696; J1940; J7030; J7070; J7799